=== PATIENT | male | born 1985 | race Caucasian/White ===

== ENCOUNTER 2024-02-19 09:59 | Inpatient (IN) ==
--- NOTE | 2024-02-19 10:58 | Emergency Department Note ---
Impression & Plan Perianal abscess, Perianal fistula due to Crohn's disease ED Provider Note NAME: MARQUISE OWUSU AGE: 38 SEX: M : 1985 ARRIVES VIA: Walk-In INFORMANT: Patient, ED PROVIDER(S): Bradford Townsend MD CHIEF COMPLAINT: Fistula HPI: This is a 38-year-old male presenting for draining perirectal fistula. Patient notes he has Crohn's disease for multiple years. He has had this fistula near his rectum for the past 1+ year. He has not had much issue with it it occasionally drains but generally asymptomatic. With past 1 to 2 days he has noticed significant drainage coming out of this region. He notes he has had fevers up to 103 as of yesterday. He notes he felt ill, had to go home from work, had the fever and this resolved few hours later. This then recurred this morning he notes worsening drainage over the course of the night that is never happened before. ROS: See above HPI for pertinent positives & negatives. A total of 10 systems reviewed and were otherwise negative. PHYSICAL EXAMINATION: General: resting comfortably in no acute distress Head: Normocephalic and atraumatic Eyes: Normal inspection, extraocular muscles intact Ear, nose, throat: Normal external exam Neck: Normal range of motion Respiratory: lungs clear to auscultation bilaterally Cardiovascular: Regular rate/rhythm, no murmur GI: soft, nontender, no guarding or rebound : Small area of 1 cm circular erythema/swelling with open wound to the left perianal space Extremities: nontender, moves all extremities Neuro: The patient awake and alert, appropriately conversive, no focal deficits, symmetric faces Skin: Warm, dry, and intact MEDICAL DECISION MAKING: This is a 38-year-old male presenting for draining perianal fistula/abscess. Will do CT of the ab/pelvis to help elucidate further. Will give broad-spectrum coverage with metronidazole and ceftriaxone. -Blood was reviewed showing no leukocytosis. Otherwise electrolytes are within normal limits. Viral panel negative. -CT imaging does reveal a perianal fistula/abscess the fistula does cross the levator muscle. -Discussed care with on-call surgery, Concepción Lion PA-C, who discussed care with the attending physician, Dr. Demetrius Quintero. Based on the location of the fistula/abscess, would recommend transfer to colorectal specialist. -Discussed with colorectal surgeon at [facility]. Patient care accepted under Dr. Porter Gutierrez. -Currently pending bed. Patient will require antibiotics, fluids and be n.p.o. currently. -Patient signed oncoming physician, Dr. Cline pending transfer. Differential diagnosis: Perirectal fistula, perianal abscess, Mina's gangrene ER treatment provided: See below Diagnostics interpreted by me: ECG: None Cardiac Monitoring: An order was placed for continuous cardiac monitoring. The monitor shows a rate of 67 with sinus rhythm. Laboratory studies: As stated above and show below. Imaging studies: See below. Past Med/Surg History Problem List (Updated 02/20/24 @ 11:24 by Bradford Townsend MD) Perianal fistula due to Crohn's disease (Acute) Perianal abscess (Acute) Social History Smoking Status: Never smoker Second Hand Exposure: No; Do You Dip or Chew Tobacco: No; Tobacco Cessation Education Requested by Patient: No Hx Alcohol Use: Yes Alcohol type: beer and hard liquor Hx Substance Use: No Preferred Language: Occitan Communication Ability: Effective Sort Operations Supervisor Required: No Beliefs That Will Affect Care: None Current Living Situation: Alone Other Information That Helps Us Care for You: No Feels Safe at Home: Yes Safety Concerns: Feels Safe At This Time Assistive Devices: None Allergies Allergies Allergy/AdvReac Type Severity Reaction Status Date / Time atropine [From Lomotil] AdvReac Blurry Verified 02/19/24 19:58 Vision diphenoxylate [From Lomotil] AdvReac Blurry Verified 02/19/24 19:58 Vision Anti- dirrheal pill AdvReac lost Uncoded 02/19/24 12:11 periperal vision Home Meds Home Medications Medication Instructions Recorded Confirmed balsalazide 750 mg capsule 1,500 mg PO BID 02/19/24 02/19/24 emtricitabine 200 mg-tenofovir 1 tab PO DAILY 02/19/24 02/19/24 alafenamide fumarate 25 mg tablet (Descovy) ferrous sulfate 325 mg (65 mg 325 mg PO DAILY 02/19/24 02/19/24 iron) tablet (iron) finasteride 1 mg tablet 1 mg PO DAILY 02/19/24 02/19/24 omeprazole magnesium 20 mg 20 mg PO DAILY 02/19/24 02/19/24 tablet,delayed release (Prilosec OTC) upadacitinib 45 mg tablet,extended 45 mg PO DAILY 02/19/24 02/19/24 release 24 hr (Rinvoq) Results & Data (ED) Vital Signs Vital Signs - 24 hr 02/19/24 12:00 02/19/24 13:00 02/19/24 14:00 Pulse Rate 63 63 67 Pulse Rate [Apical] Pulse Rate from SpO2 Sensor 63 63 68 Respiratory Rate 24 22 18 Respiratory Effort / Characteristics Respiratory Depth Blood Pressure 133/85 143/74 H Blood Pressure [Left Arm] Blood Pressure Mean 101 97 Blood Pressure Mean [Left Arm] Pulse Oximetry 97 96 97 Oxygen Delivery Method Room Air Room Air Room Air 02/19/24 15:30 02/19/24 16:00 02/19/24 17:36 Pulse Rate 67 65 70 Pulse Rate [Apical] Pulse Rate from SpO2 Sensor 66 66 67 Respiratory Rate 20 14 16 Respiratory Effort / Characteristics Respiratory Depth Blood Pressure 131/79 Blood Pressure [Left Arm] Blood Pressure Mean 96 Blood Pressure Mean [Left Arm] Pulse Oximetry 98 97 98 Oxygen Delivery Method Room Air Room Air Room Air 02/19/24 20:00 Pulse Rate Pulse Rate [Apical] 56 L Pulse Rate from SpO2 Sensor Respiratory Rate 16 Respiratory Effort / Characteristics Non-Labored Respiratory Depth Normal Blood Pressure Blood Pressure [Left Arm] 129/80 Blood Pressure Mean Blood Pressure Mean [Left Arm] 96 Pulse Oximetry 95 Oxygen Delivery Method Laboratory Data 02/20/24 07:56 02/20/24 07:56 Lab Results 02/19/24 Range/Units 10:32 WBC 9.04 (4.8-10.8) K/ul RBC 4.53 L (4.70-6.10) M/uL Hgb 14.8 (14.0-18.0) g/dl Hct 41.5 L (42.0-52.0) % MCV 91.6 (80.0-100.0) fL MCH 32.7 (25.0-34.0) pg MCHC 35.7 (32.0-36.0) g/dL RDW Std Deviation 42.9 (36.4-46.3) fL RDW Coeff of Poly 12.9 (11.5-14.5) % Plt Count 239 (130-400) K/uL MPV 9.7 (9.4-12.4) fL Immature Gran % (Auto) 0.4 % Neut % (Auto) 63.1 % Lymph % (Auto) 27.5 % Whitley % (Auto) 8.1 % Eos % (Auto) 0.7 % Baso % (Auto) 0.2 % Neut # (Auto) 5.70 (1.40-6.50) K/uL Lymph # (Auto) 2.49 (1.20-3.40) K/uL Whitley # (Auto) 0.73 H (0.11-0.59) K/uL Eos # (Auto) 0.06 (0.00-0.50) K/uL Baso # (Auto) 0.02 (0.00-0.20) K/uL Immature Gran # (Auto) 0.04 (0.01-0.20) K/uL Sodium 136 (136-145) mmol/L Potassium 3.9 (3.5-5.1) mmol/L Chloride 104 (98-107) mmol/L Carbon Dioxide 25 (21-32) mmol/L Anion Gap 7 (3-11) BUN 18 (6-23) mg/dl Creatinine 1.38 (0.6-1.4) mg/dl Est Cr Clr Drug Dosing 84.8 ml/min Est GFR ( Amer) 75.7 ml/min Est GFR (Non-Af Amer) 65.3 ml/min BUN/Creatinine Ratio 13.0 (10-20) Glucose 94 (70-99(Fasting)) mg/dl Calcium 9.5 (8.6-10.3) mg/dl Adenovirus (PCR) Not Detected (NotDetected) B. pertussis DNA (PCR) Not Detected (NotDetected) B.parapertussis DNA PCR Not Detected (NotDetected) C. pneumoniae DNA (PCR) Not Detected (NotDetected) Coronavirus OC43 (PCR) Not Detected (NotDetected) Coronavirus HKU1 (PCR) Not Detected (NotDetected) Coronavirus 229E (PCR) Not Detected (NotDetected) SARS-CoV-2 (PCR) Not Detected (NotDetected) Coronavirus NL63 (PCR) Not Detected (NotDetected) Human Metapneumovir PCR Not Detected (NotDetected) Influenza Type A (PCR) Not Detected (NotDetected) Influenza Type B (PCR) Not Detected (NotDetected) M. pneumoniae (PCR) Not Detected (NotDetected) Parainfluenza 1 (PCR) Not Detected (NotDetected) Parainfluenza 2 (PCR) Not Detected (NotDetected) Parainfluenza 3 (PCR) Not Detected (NotDetected) Parainfluenza 4 (PCR) Not Detected (NotDetected) RSV (PCR) Not Detected (NotDetected) Entero/Rhino (PCR) Not Detected (NotDetected) Administered Medications Balsalazide (Balsalazide Disodium 750 Mg Cap) 1,500 mg PO BID [facility] Stop: 03/21/24 08:59 Last Admin: 02/20/24 09:59 Dose: 1,500 mg Documented By: ZABRINA Enoxaparin Sodium (Enoxaparin Inj 40 Mg/0.4 Ml Syr) 40 mg SQ QAM [facility] Stop: 03/21/24 08:59 Last Admin: 02/20/24 08:54 Dose: Not Given Documented By: ZABRINA Ferrous Sulfate (Ferrous Sulfate 325 Mg Tab) 325 mg PO DAILY [facility] Stop: 03/21/24 08:59 Last Admin: 02/20/24 10:20 Dose: 325 mg Documented By: ZABRINA Piperacillin Sod/Tazobactam (Sod 4.5 gm/ Dextrose) 100 mls @ 25 mls/hr IV Q8H [facility]; Protocol Stop: 03/01/24 01:59 Last Admin: 02/20/24 10:00 Dose: 25 mls/hr Documented By: Infusion: 02/20/24 05:02 Dose: Infused Documented By: Admin: 02/20/24 01:01 Dose: 25 mls/hr Documented By: JENNYFER Dextrose/Sodium Chloride (D5w And Nss) 1,000 mls @ 60 mls/hr IV .[id number] [facility] Stop: 03/21/24 07:29 Last Admin: 02/20/24 07:30 Dose: 60 mls/hr Documented By: ZABRINA Finasteride 1 Mg Tab 1 each PO Q24H DORINDA Stop: 03/21/24 08:59 Last Admin: 02/20/24 09:58 Dose: 1 mg Documented By: ZABRINA Descovy 200-25mg: Non-Formulary Patient's Own Med 1 each PO DAILY DORINDA Stop: 03/21/24 09:44 Last Admin: 02/20/24 09:57 Dose: 25 mg Documented By: LMM Pantoprazole Sodium (Pantoprazole 40 Mg Tab) 40 mg PO DAILY DORINDA Stop: 03/21/24 08:59 Last Admin: 02/20/24 10:19 Dose: 40 mg Documented By: LMM Discontinued Medications Metronidazole (Flagyl) 500 mg in 100 mls @ 100 mls/hr IV NOW STA; Protocol Stop: 02/19/24 14:37 Last Infusion: 02/19/24 15:40 Dose: Infused Documented By: [facility] Admin: 02/19/24 14:35 Dose: 100 mls/hr Documented By: [facility] Ceftriaxone Sodium (Rocephin) 2,000 mg in 50 mls @ 100 mls/hr IV NOW STA Stop: 02/19/24 14:07 Last Infusion: 02/19/24 15:40 Dose: Infused Documented By: [facility] Admin: 02/19/24 14:35 Dose: 100 mls/hr Documented By: [facility] Sodium Chloride (Nss) 1,000 mls @ 999 mls/hr IV .Q1H1M ONE Stop: 02/19/24 14:50 Last Infusion: 02/19/24 15:40 Dose: Infused Documented By: [facility] Admin: 02/19/24 14:20 Dose: 999 mls/hr Documented By: [facility] Sodium Chloride (Nss) 1,000 mls @ 125 mls/hr IV .Q8H DORINDA Stop: 03/20/24 15:14 Last Infusion: 02/19/24 22:20 Dose: Infused Documented By: Infusion: 02/19/24 19:58 Dose: 125 mls/hr Documented By: Admin: 02/19/24 15:39 Dose: 125 mls/hr Documented By: [facility] Metronidazole (Flagyl) 500 mg in 100 mls @ 100 mls/hr IV Q8H DORINDA Stop: 02/29/24 21:59 Last Admin: 02/19/24 22:51 Dose: Not Given Documented By: [facility] Sodium Chloride (Nss) 1,000 mls @ 100 mls/hr IV .Q10H ONE Stop: 02/20/24 05:41 Last Infusion: 02/20/24 02:25 Dose: Infused Documented By: Admin: 02/19/24 19:59 Dose: 100 mls/hr Documented By: ANDRADE Piperacillin Sod/Tazobactam Sod (Zosyn) 4.5 gm in 100 mls @ 200 mls/hr IV NOW STA Stop: 02/19/24 20:56 Last Infusion: 02/19/24 21:40 Dose: Infused Documented By: Admin: 02/19/24 21:05 Dose: 200 mls/hr Documented By: ANDRADE Ioversol (Optiray 320 100ml) 94 ml IV ONCE ONE Stop: 02/19/24 11:30 Last Admin: 02/19/24 11:30 Dose: 94 ml Documented By: ROGERIO Miscellaneous (Balsalazide - Order Awaiting Action) 1 each N/A QS DORINDA Stop: 03/21/24 00:00 Last Admin: 02/20/24 09:07 Dose: Not Given Documented By: Admin: 02/20/24 00:28 Dose: Not Given Documented By: JENNYFER Miscellaneous (Descovy 200-25 Mg - Order Awaiting Action) 1 each N/A QS DORINDA Stop: 03/21/24 00:00 Last Admin: 02/20/24 09:48 Dose: Not Given Documented By: Admin: 02/20/24 00:28 Dose: Not Given Documented By: JENNYFER Cardenascellaneous (Finasteride 1 Mg - Order Awaiting Action) 1 each N/A QS DORINDA Stop: 03/21/24 00:00 Last Admin: 02/20/24 09:07 Dose: Not Given Documented By: Admin: 02/20/24 00:28 Dose: Not Given Documented By: JENNYFER Miscellaneous Information (Patient's Allergy Info Needs Entered) 1 each N/A Q30M DORINDA Stop: 03/20/24 19:44 Last Admin: 02/19/24 22:22 Dose: Not Given Documented By: Admin: 02/19/24 22:22 Dose: Not Given Documented By: JENNYFER Imaging Data Radiologist's Impression: Abdomen/Pelvis CT 02/19/24 10:42 CT SCAN OF THE ABDOMEN AND PELVIS WITH IV CONTRAST CLINICAL HISTORY: Perirectal fistula. Abscess. COMPARISON STUDY: No priors. TECHNIQUE: Following the IV administration of negative cc of Optiray 320, CT scan of the abdomen and pelvis is performed from the lung bases to the proximal femora. Images are reviewed in the axial, sagittal, and coronal planes. IV contrast was administered without complication. A dose lowering technique was utilized adhering to the principles of ALARA. CT DOSE: 1576.21 mGy.cm FINDINGS: Lung bases: The heart is normal in size and without pericardial effusion. The lung bases are clear. Liver: The contrast-enhanced liver is normal in size, contour, and attenuation. There is no intrahepatic biliary ductal dilatation. The hepatic veins and portal veins are patent. Gallbladder: Unremarkable. Spleen: The spleen is mildly enlarged measuring 14.5 cm in length. Pancreas: Unremarkable. Adrenal glands: Unremarkable. Kidneys: The contrast enhanced kidneys are normal in size and without hydronephrosis. The kidneys enhance symmetrically. Abdominal vasculature: The abdominal aorta is normal in course and caliber. Bowel: There is no bowel obstruction. The appendix is well-visualized and normal. The rectal wall appears mildly thickened with surrounding inflammation. There is a thick walled and peripherally enhancing fluid collection/tract which extends from the anterior left rectum at the 1:00 to 3:00 position into the left perineal soft tissues. This originates on image #305, crosses the left levator musculature, and extends to the dermal surface along the inferior left gluteal crease on image #373. More organized component of this fluid collection is seen on image number dimension 18 and measures 2.5 x 2.1 x 1.0 cm. The tract measures approximately 12 cm in craniocaudal length. Mildly enlarged perirectal lymph nodes measure up to 9 mm. There is mild cellulitis along the left the gluteal crease. Peritoneum: There is no intraperitoneal free air or abdominal ascites. Lymphadenopathy: None. Pelvic viscera: The bladder, prostate, and seminal vesicles are normal as visualized. Skeletal structures: No lytic or blastic lesions are seen. IMPRESSION: 1. There is a left-sided perianal abscess/fistula as detailed above which extends from the anterior aspect of the rectum to the inferior gluteal crease. 2. There is rectal wall thickening with mild perirectal infiltration and mildly enlarged perirectal lymph nodes. 3. The fistulous tract extends through the levator musculature. 4. Mild splenomegaly. 5. Additional findings as above. ACT 112: Negative or not required by law. Electronically signed by: Brandon Castelan M.D. 02/19/2024 12:17 PM Discharge Plan Visit Data Chief Complaint: Referred by Doctor Stated Complaint: REF BY DOC, NEEDS MRI TO ASSESS ABD ED Provider: Marquise Cline Discharge Problem: Perianal abscess, Perianal fistula due to Crohn's disease Patient Disposition: Admitted As Inpatient Discharge Instructions Interventions: ED Discharge Assessment Last Done: 02/19/24 21:41
[2024-02-19 11:05] LABS: Basophils # (auto) 0.02 K/uL (0.00-0.20); Basophils % (auto) 0.2 %; Eosinophils # (auto) 0.06 K/uL (0.00-0.50); Eosinophils % (auto) 0.7 %; Hematocrit (blood only) 41.5 % (42.0-52.0); Hemoglobin 14.8 g/dl (14.0-18.0); Immature Granulocytes # (auto) 0.04 K/uL (0.01-0.20); Immature Granulocytes % (auto) 0.4 %; Lymphocytes # (auto) 2.49 K/uL (1.20-3.40); Lymphocytes % (auto) 27.5 %; Mean Corpuscular Hemoglobin 32.7 pg (25.0-34.0); Mean Corpuscular Hgb Conc 35.7 g/dL (32.0-36.0); Mean Corpuscular Volume 91.6 fL (80.0-100.0); Mean Platelet Volume 9.7 fL (9.4-12.4); Monocytes # (auto) 0.73 K/uL (0.11-0.59); Monocytes % (auto) 8.1 %; Neutrophils % (auto) 63.1 %; Platelet Count 239 K/uL (130-400); RDW Coefficient of Variation 12.9 % (11.5-14.5); RDW Standard Deviation 42.9 fL (36.4-46.3); Red Blood Count 4.53 M/uL (4.70-6.10); White Blood Count 9.04 K/ul (4.8-10.8)
[2024-02-19 11:19] LABS: Calcium 9.5 mg/dl (8.6-10.3); Creatinine Clr Calc Pharmacy 84.8 ml/min; Est GFR (African American) 75.7 ml/min; Est GFR (Non-African American) 65.3 ml/min; Potassium 3.9 mmol/L (3.5-5.1)
[2024-02-19] MEDS: OPTIRAY 320 100ml IV ONE (11:30)
[2024-02-19 12:04] LABS: Adenovirus PCR Not Detected (NotDetected); Bordetella parapertussis PCR Not Detected (NotDetected); Bordetella pertussis PCR Not Detected (NotDetected); Chlamydia pneumoniae PCR Not Detected (NotDetected); Coronavirus 229E PCR Not Detected (NotDetected); Coronavirus CoV-2 (COVID19)PCR Not Detected (NotDetected); Coronavirus HKU1 PCR Not Detected (NotDetected); Coronavirus NL63 PCR Not Detected (NotDetected); Coronavirus OC43PCR Not Detected (NotDetected); Human Metapneumovirus PCR Not Detected (NotDetected); Influenza A PCR Not Detected (NotDetected); Influenza B PCR Not Detected (NotDetected); Mycoplasma pneumoniae PCR Not Detected (NotDetected); Parainfluenza Virus 1 PCR Not Detected (NotDetected); Parainfluenza Virus 2 PCR Not Detected (NotDetected); Parainfluenza Virus 3 PCR Not Detected (NotDetected); Parainfluenza Virus 4 PCR Not Detected (NotDetected); Respiratory Syncytial VirusPCR Not Detected (NotDetected); Rhinovirus/Enterovirus PCR Not Detected (NotDetected)
--- NOTE | 2024-02-19 12:20 | CT Scan Report ---
CT SCAN OF THE ABDOMEN AND PELVIS WITH IV CONTRAST CLINICAL HISTORY: Perirectal fistula. Abscess. COMPARISON STUDY: No priors. TECHNIQUE: Following the IV administration of negative cc of Optiray 320, CT scan of the abdomen and pelvis is performed from the lung bases to the proximal femora. Images are reviewed in the axial, sa gittal, and coronal planes. IV contrast was administered without complication. A dose lowering techni que was utilized adhering to the principles of ALARA. CT DOSE: 1576.21 mGy.cm FINDINGS: Lung bases: The heart is normal in size and without pericardial effusion. The lung bases are clear. Liver: The contrast-enhanced liver is normal in size, contour, and attenuation. There is no intrahepa tic biliary ductal dilatation. The hepatic veins and portal veins are patent. Gallbladder: Unremarkable. Spleen: The spleen is mildly enlarged measuring 14.5 cm in length. Pancreas: Unremarkable. Adrenal glands: Unremarkable. Kidneys: The contrast enhanced kidneys are normal in size and without hydronephrosis. The kidneys enh ance symmetrically. Abdominal vasculature: The abdominal aorta is normal in course and caliber. Bowel: There is no bowel obstruction. The appendix is well-visualized and normal. The rectal wall ap pears mildly thickened with surrounding inflammation. There is a thick walled and peripherally enhanc ing fluid collection/tract which extends from the anterior left rectum at the 1:00 to 3:00 position i nto the left perineal soft tissues. This originates on image #305, crosses the left levator musculatu re, and extends to the dermal surface along the inferior left gluteal crease on image #373. More orga nized component of this fluid collection is seen on image number dimension 18 and measures 2.5 x 2.1 x 1.0 cm. The tract measures approximately 12 cm in craniocaudal length. Mildly enlarged perirectal l ymph nodes measure up to 9 mm. There is mild cellulitis along the left the gluteal crease. Peritoneum: There is no intraperitoneal free air or abdominal ascites. Lymphadenopathy: None. Pelvic viscera: The bladder, prostate, and seminal vesicles are normal as visualized. Skeletal structures: No lytic or blastic lesions are seen. IMPRESSION: 1. There is a left-sided perianal abscess/fistula as detailed above which extends from the anterior a spect of the rectum to the inferior gluteal crease. 2. There is rectal wall thickening with mild perirectal infiltration and mildly enlarged perirectal l ymph nodes. 3. The fistulous tract extends through the levator musculature. 4. Mild splenomegaly. 5. Additional findings as above. ACT 112: Negative or not required by law. Electronically signed by: Brandon Castelan M.D. 02/19/2024 12:17 PM
[2024-02-19] MEDS: SODIUM CHLORIDE 0.9% 1,000 ML IV ONE ×2 (14:20→19:59)
[2024-02-19] MEDS: cefTRIAXone SODIUM 2,000 MG/50 ML BAG IV STA (14:35)
[2024-02-19] MEDS: metroNIDAZOLE 500 MG/100 ML BAG IV STA (14:35)
[2024-02-19] MEDS: SODIUM CHLORIDE 0.9% 1,000 ML IV SCH (15:39)
--- OUTSIDE RECORDS SUMMARY | 2024-02-19 16:52 | External Medical Summary ---
Author Name Unknown Address Unknown Organization [id number]:[facility] - [address] [place] [address] Laboratory Report Ordering Provider Test Date Status TRAE KNOX 02/18/2024 08:21:40 Final Observation Date Value Abnormality Reference (Units ) Status Triglyceride 02/18/2024 08:21:40 76 <=174 ( mg/dL) Final Triglyceride Reference Range s (mg/dL):
<150 Acceptable
150-174 Borderline high
175-499 High
>=500 Very high Cholesterol 02/18/2024 08:21:40 142 <200 (mg /dL) Final Total Cholesterol Reference Ranges (mg/dL):
<200 Desirable
200-239 Borderline high
>=240 High HDL 02/18/2024 08:21:40 44 >39 (mg/dL ) Final HDL Cholesterol Reference Ra nges (mg/dL):
>=60 High (Desirable)
<50 Low (Undesirable) For Females
<40 Low (Undesirable) For Males NON-HDL CHOLESTEROL 02/18/2024 08:21:40 98 <=159 (mg/dL) Final Non-HDL Cholesterol Referenc e Range (mg/dL):
<100 Target level for high risk ASCVD patient
<130 Optimal for general population
130-159 Near optimal for general population
160-189 Borderline High
190-219 High
>=220 Very High LDL, (calculated) 02/18/2024 08:21:40 83 <= 129 (mg/dL) Final LDL Cholesterol Reference Ra nges (mg/dL):
<70 Target level for high risk ASCVD patient
<100 Optimal for general population
100-129 Near optimal for general population
130-159 Borderline high
160-189 High
>=190 Very high Performing Location LAB[facility]ATORY [facility] - [address] [place] [address]
--- OUTSIDE RECORDS SUMMARY | 2024-02-19 16:52 | External Medical Summary ---
Author Name Unknown Address Unknown Organization [id number]:[facility] - [address] [place] [id number] Laboratory Report Ordering Provider Test Date Status TRAE KNOX 02/18/2024 08:21:40 Final Observation Date Value Abnormality Reference (Units ) Status WBC, Total 02/18/2024 08:21:40 8.95 4.00-10.8 0 (K/uL) Final RBC 02/18/2024 08:21:40 4.41 4.50-5.25 (M/uL) Final Hemoglobin 02/18/2024 08:21:40 14.3 14.0-16.8 (g/dL) Final HCT 02/18/2024 08:21:40 41.4 40.0-48.4 (%) Final MCV 02/18/2024 08:21:40 93.9 82.0-99.5 (fL) Final MCH 02/18/2024 08:21:40 32.4 27.0-34.0 (pg) Final MCHC 02/18/2024 08:21:40 34.5 32.0-36.0 (g/dL) Final RDW 02/18/2024 08:21:40 13.1 11.5-15.5 (%) Final Platelets 02/18/2024 08:21:40 226 140-400 (K /uL) Final MPV 02/18/2024 08:21:40 9.8 6.6-11.1 ( fL) Final Performing Location [facility] [place] [address]
--- OUTSIDE RECORDS SUMMARY | 2024-02-19 16:52 | External Medical Summary ---
Author Name Unknown Address Unknown Organization [id number] [address] [place] [address] Laboratory Report Ordering Provider Test Date Status TRAE KNOX 02/18/2024 08:21:40 Final Observation Date Value Abnormality Reference (Units ) Status SYNC LEUKOCYTES IN BLOOD BY AUTOMATED COUNT 02/18/2024 08:21:40 8.95 4.00-10.80 (K/uL) Final Neutrophils/100 leukocytes in Blood by Manual count 02/18/2024 08:21:40 69.0 40.0-75.0 (%) Final Lymphocytes/100 leukocytes in Blood by Manual count 02/18/2024 08:21:40 24.0 18.0-42.0 (%) Final Monocytes/100 leukocytes in Blood by Manual count 02/18/2024 08:21:40 7.0 1.0-11.0 (%) Final Neutrophils [#/volume] in Blood by Manual count 02/18/2024 08:21:40 6.18 1.80-7.70 (K/uL) Final Lymphocytes [#/volume] in Blood by Manual count 02/18/2024 08:21:40 2.15 1.00-4.80 (K/uL) Final Monocytes [#/volume] in Blood by Manual count 02/18/2024 08:21:40 0.63 0.00-1.10 (K/uL) Final Nucleated erythrocytes/100 leukocytes [Ratio] in Blood by Automated count 02/18/2024 08:21:40 Final Variant lymphocytes [Presence] in Blood by Light microscopy 02/18/2024 08:21:40 Present Abnormal None Seen Final Performing Location [facility] [address] - [address] [place] [id number]
--- OUTSIDE RECORDS SUMMARY | 2024-02-19 16:52 | External Medical Summary ---
Author Name Unknown Address Unknown Organization K0G:[facility] [address] - [address] [place] [address] Laboratory Report Ordering Provider Test Date Status TRAE KNOX 02/18/2024 08:21:40 Final Observation Date Value Abnormality Reference (Units ) Status BUN 02/18/2024 08:21:40 21 Above high normal 6-20 (mg/dL) Final Creatinine 02/18/2024 08:21:40 1.5 Above high normal 0.6-1.2 (mg/dL) Final Glomerular filtration rate/1.73 sq M.predicted [Volume Rate/Area] in Serum, Plasma or Blood by Creatinine-based formula (CKD-EPI) 02/18/2024 08:21:40 61 >=60 (mL/min) Final eGFR is calculated based on the CKD-EPI 2020 equation Sodium 02/18/2024 08:21:40 137 135-146 (m mol/L) Final Potassium 02/18/2024 08:21:40 4.3 3.5-5.1 (m mol/L) Final Cl 02/18/2024 08:21:40 102 98-107 (mm ol/L) Final CO2 02/18/2024 08:21:40 26 22-32 (mmo l/L) Final Anion gap 02/18/2024 08:21:40 9 7-15 (mmol /L) Final Glucose 02/18/2024 08:21:40 97 70-120 (mg /dL) Final Albumin 02/18/2024 08:21:40 4.5 3.8-5.0 (g /dL) Final AST (Aspartate aminotransferase) 02/18/2024 08:21:40 29 10-50 (U/L) Final Alk Phos 02/18/2024 08:21:40 78 35-130 (U/ L) Final Bilirubin, Total 02/18/2024 08:21:40 0.8 <=1 .2 (mg/dL) Final Calcium 02/18/2024 08:21:40 10.0 8.4-10.2 ( mg/dL) Final Protein 02/18/2024 08:21:40 6.8 6.0-8.3 (g /dL) Final ALT (Alanine aminotransferase) 02/18/2024 08:21:40 20 10-50 (U/L) Final Performing Location [facility] [address] [facility] [address]
--- OUTSIDE RECORDS SUMMARY | 2024-02-19 16:52 | External Medical Summary | Summary of Care ---
Author Name Unknown Organization [facility] Address [address] [place] [address] Phone [phone] Care Team Providers Care Tipping Machine Operator Name Role Phone Garo Aponte MD Primary Care Provider Reason for Visit * Reason Comments Outpatient Testing Encounter Details Date Type Department Care Team (Latest Contact Info) Description 02/18/2024 8:20 AM EDT Laboratory Laboratory, [facility] [address] [place] [address] [facility] [address] [place] [address] Crohn's disease with fistula, unspecified gastrointestinal tract location (HCC); [facility] current use of upadacitinib Allergies Active Allergy Reactions Criticality Noted Date Comments Diphenoxylate-Atropi ne 05/23/2023 Other Reaction(s): Not available Lomotil Other (Please comment) High 09/29/2009 Lose of sight documented as of this encounter (statuses as of 02/18/2024) Medications Medication Sig Dispensed Refills Start Date End Date Status fluticasone (FLONASE) 50 MCG/ACT nasal sprayIndications:Mike rgic rhinitis USE TWO SPRAYS IN EACH NOSTRIL DAILY 16 g 4 8 Active Ferrous Sulfate (IRON) 325 (65 Fe) MG TABS Take 1 Tablet by mouth in the morning. Active Hydrocortisone 0.5 % cream Apply topically to affected area 2 times a day. Apply one time a day as needed for rash Active omeprazole (PRILOSEC) 40 MG CPDRIndications:GERD (gastroesophageal reflux disease) TAKE ONE CAPSULE BY MOUTH DAILY 90 Cap 1 0 Active ProAir HFA 108 (90 Base) MCG/ACT Inhalation Aerosol Solution Inhale by mouth 2 Puffs 4 times a day . 18 g 1 2 Active Additional Information Patient not taking.Reported on 04/16/2023 Hydrocortisone Acetate 25 MG Rectal Suppository (Anusol-HC) Administer into the rectum 2 times a day in the morning and at bedtime as needed for Hemorrhoids. Up to 2 weeks. 24 Suppository 1 2 Active Descovy 200-25 MG Oral Tablet Take 1 Tablet by mouth in the morning. 3 Active Balsalazide Disodium 750 MG Oral Capsule TAKE 2 CAPSULES BY MOUTH TWICE DAILY 360 Capsule 3 3 Active Atenolol 25 MG Oral Tablet (Tenormin)Indications :Performance anxiety Take 1 Tablet by mouth daily as needed (performance anxiety). 30 Tablet 2 3 Active Finasteride 1 MG Oral TabletIndications:Mal e pattern baldness Take 1 Tablet by mouth in the morning. 90 Tablet 3 4 Active Rinvoq 45 MG Oral Tablet Extended Release 24 Hour (Upadacitinib ER)Indications:Crohn' s disease with fistula, unspecified gastrointestinal tract location (HCC) Take 1 Tablet by mouth daily. 28 Tablet 2 4 Active documented as of this encounter (statuses as of 02/18/2024) Active Problems Problem Noted Date Diagnosed Date PSC (primary sclerosing cholangitis) 10/07/2023 Crohn's disease with fistula 08/04/2023 Ulcerative (chronic) pancolitis with other compl ication 10/11/2021 Performance anxiety 08/02/2014 GERD (gastroesophageal reflux disease) 3 Ulcerative colitis 07/11/2009 ADVANCE DIRECTIVE INFORMATION 11/18/2006 Overview: No, Advance Directive brochure given to patient. documented as of this encounter (statuses as of 02/18/2024) Resolved Problems Problem Noted Date Diagnosed Date Resolved Date Ulcerative colitis 07/28/2015 5 documented as of this encounter (statuses as of 02/18/2024) Immunizations Name Administration Dates Next Due COVID-19 mRNA, LNP-s, No Pre serve, 2-Dose Series (Pfizer) 07/11/2021,2020,11/01/2020 H1N1 2009 Influenza, IM 06/28/2009,06/27/2009 PPD 09/14/2015,09/29/2009 Pneumococcal Conjugate Vacci ne, 20-valent ([id number]) 08/04/2023 Seasonal Influenza, PF, 6 M & above, IM , (FluLaval or Fluzone) 06/11/2023,06/21/2021,08/12/2018 Seasonal Influenza, Quadriva lent, No Preserve, IM 07/11/2016,07/28/2015 Seasonal Influenza, Split, I IV3, With Preserve, Inj 08/02/2014 TD - Tetanus/Diptheria (ADULT) 10/11/2021 TDAP, Age 7 and older, IM (Adacel) 07/03/2010 documented as of this encounter Social History Tobacco Use Types Packs/Day Years Used Date Smoking Tobacco: Never Smokeless Tobacco: Never Alcohol Use Standard Drinks/Week Comments Yes 0 (1 standard drink = 0.6 oz pur e alcohol) socially PHQ-2 Answer Date Recorded PHQ Adult Total Score 0 12/27/2022 Hunger Vital Sign Answer Date Recorded Within the past 12 months, y ou worried that your food would run out before you got the money to buy more. Never true 08/04/20 23 Within the past 12 months, t he food you bought just didn't last and you didn't have money to get more. Never true 08/04/2023 Childcare Answer Date Recorded Do you feel overwhelmed with taking care of a child, family member or friend? No 08/04/2023 Does your family need help f inding childcare? (Household - for ages 0-17 years) Not on file 08/04/2023 Clothing Answer Date Recorded Have you been unable to get clothing when it was really needed? No 08/04/2023 Is your family able to get c lothes or diapers when needed? (Household - for ages 0-17 years) Not on file 08/04/2023 Personal Safety Answer Date Recorded Do you feel unsafe or have concerns for your saf ety? No 08/04/2023 Do you have concerns for you r family's safety? (Household - for ages 0-17 years) Not on file 08/04/2023 Utilities Answer Date Recorded Do you have trouble paying y our heating, water, or electric bill? No 08/04/2023 Is your family able to pay t he heat, water, or electric bill? (Household - for ages 0-17 years) Not on file 08/04/2023 Does your family have access to good internet? (Household - for ages 0-17 years) Not on file 08/04/2023 Employment Status Answer Date Recorded Are you unemployed or without regular income? No 08/04/2023 Does the household have a re gular source of income? (Household - for ages 0-17 years) Not on file 08/04/2023 Social Connections Answer Date Recorded How often do you feel lonely or isolated from th ose around you? Never 08/04/2023 Financial Resource Strain Answer Date R ecorded Do you have any trouble payi ng for your medications, or do you think you might in the future? No 08/04/2023 Does your family have troubl e paying for medicine? (Household - for ages 0-17 years) Not on file 08/04/2023 Transportation Needs Answer Date Record ed READ ONLY Do you have troubl e getting a ride to medical visits or work? Never True 08/04/2023 Does your family have a hard time getting a ride to doctors visits? (Household - for ages 0-17 years) Not on file 08/04/2023 Has lack of transportation k ept you from medical appointments, meetings, work, or from getting things needed for daily living? Check all that apply. (Adult - for ages 18 years and over) Not on file 08/04/2023 Do you (or your family) have trouble finding or paying for a ride (transportation)? (Household - for ages 0-17 years) Not on file 08/04/2023 Housing Stability Answer Date Recorded Do you currently live in a s helter or have no steady place to sleep at night? No 08/04/2023 READ ONLY Do you think you a re at risk of becoming homeless? No 08/04/2023 Does your family worry about paying for your home or becoming homeless? (Household - for ages 0-17 years) Not on file 1 10/05/2022 Are you homeless or worried that you might be in the future? (Adult - for ages 18 years and over) Not on file Are you (or your family) matty eless or worried that you might be in the future? (Household - for ages 0-17 years) Not on file Food Insecurity Answer Date Recorded Do you need food for this week? No 08/04/2023 Are you able to get enough f ood for your family? (Household - for ages 0-17 years) Not on file 08/04/2023 Does your family need food t his week? (Household - for ages 0-17 years) Not on file 08/04/2023 Do you always have enough fo od for your family? (Household - for ages 0-17 years) Not on file 08/04/2023 Sex and Gender Information Value Date Recorded Sex Assigned at Not on file Gender Identity Male 08/04/2023 12:30 PM EST Sexual Orientation Not on file Job Start Date Occupation Industry Not on file Not on file Not on file documented as of this encounter Plan of Treatment Upcoming Encounters Date Type Department Care Team (Late st Contact Info) Description 06/01/2024 9:40 AM EDT Office Visit Gastroenterology, [facility] [address] [address] Gucci Scott MD [address] [address] Pending Results Name Type Priority Associated Diagnoses Date /Time CBC WITH WBC DIFFERENTIAL Lab Routine Crohn's disease with fistula, unspecified gastrointestinal tract location (HCC) [facility] current use of upadacitinib 02/18/2024 8:21 AM EDT COMPREHENSIVE METABOLIC PANEL Lab Routine Crohn's disease with fistula, unspecified gastrointestinal tract location (HCC) terminal clerk current use of upadacitinib 02/18/2024 8:21 AM EDT LIPID PANEL WITH DIRECT LDL IF TG IS HIGH Lab Routine Crohn's disease with fistula, unspecified gastrointestinal tract location (HCC) [facility] current use of upadacitinib 02/18/2024 8:21 AM EDT CBC Lab Routine Crohn's disease with fistula, unspecified gastrointestinal tract location (HCC) terminal clerk current use of upadacitinib 02/18/2024 8:21 AM EDT DIFFERENTIAL, AUTOMATED Lab Routine Crohn's disease with fistula, unspecified gastrointestinal tract location (HCC) [facility] current use of upadacitinib 02/18/2024 8:21 AM EDT Scheduled Procedures Name Priority Associated Diagnoses Date/Ti me COLONOSCOPY FLEXIBLE PROXIMA L DIAGNOSTIC Recall Ulcerative pancolitis with other complication (HCC) Health Maintenance Due Date Last Done Comments COVID-19 Vaccine (2022-24 season) 2023 07/11/2021, 2020, 11/01/2020 Depression Screening 12/28/2023 12/27/2022 Diabetes Screening 11/25/2026 11/26/2023, 0 10/11/2021, 11/01/2020, Additional history exists DTaP,Tdap,and Td Vaccines (8 - Td or Tdap) 10/11/2031 10/11/2021, 07/03/2010, 04/12/2002, Additional history exists Influenza Vaccine (FLU shot) Completed 07/2023, 06/21/2021, 08/12/2018, Additional history exists Pneumococcal Vaccine: Pediatrics (0 to 5 Years) and At-Risk Patients (6 to 64 Years) Completed 08/04/2023 GARDASIL-HPV IMMUNIZATION SERIES Aged Out No longer eligible based on patient's age to complete this topic MENINGOCOCCAL (MENACTRA/MENVEO) Aged Out No longer eligible based on patient's age to complete this topic documented as of this encounter Medical Devices Not on filedocumented as of this encounter Visit Diagnoses Diagnosis Crohn's disease with fistula, unspecified gastrointestinal tract location (HCC) [facility] current use of upadacitinib documented in this encounter Care Teams Tipping Machine Operator Relationship Specialty Start Date End Date December, Garo Vuong MD [address] [place] [address] PCP - General Family Medicine 08/04/23 documented as of this encounter
--- OUTSIDE RECORDS SUMMARY | 2024-02-19 16:53 | External Medical Summary | Summary of Care ---
Author Name Unknown Organization [facility] Address [address] [place] [address] Phone [phone] Care Team Providers Care Supervisor Refining Name Role Phone Garo Aponte MD Primary Care Provider [phone] Encounter Details Date Type Department Care Team (Late st Contact Info) Description 02/09/2024 Telephone Gastroenterology, [place] [address] [place], [place] [id number] Gucci Scott MD [address] [place] [address] Allergies Active Allergy Reactions Criticality Noted Date Comments Diphenoxylate-Atropi ne 05/23/2023 Other Reaction(s): Not available Lomotil Other (Please comment) High 09/29/2009 Lose of sight documented as of this encounter (statuses as of 02/09/2024) Medications Medication Sig Dispensed Refills Start Date [...] as of this encounter (statuses as of 02/09/2024) Active Problems Problem Noted Date Diagnosed Date PSC (primary sclerosing cholangitis) 10/07/2023 Crohn's disease with fistula 08/04/2023 Ulcerative (chronic) pancolitis with other compl ication 10/11/2021 Performance anxiety 08/02/2014 GERD (gastroesophageal reflux disease) 3 Ulcerative colitis 07/11/2009 ADVANCE DIRECTIVE INFORMATION 11/18/2006 Overview: No, Advance Directive brochure given to patient. documented as of this encounter (statuses as of 02/09/2024) Resolved Problems Problem Noted Date Diagnosed Date Resolved Date Ulcerative colitis 07/28/2015 5 documented as of this encounter (statuses as of 02/09/2024) Immunizations Name Administration Dates Next Due COVID-19 mRNA, LNP-s, No Pre serve, 2-Dose Series (Semanticator) 07/11/2021,2020,11/01/2020 H1N1 2009 Influenza, IM 06/28/2009,06/27/2009 PPD 09/14/2015,09/29/2009 Pneumococcal Conjugate Vacci ne, 20-valent ([id number]) 08/04/2023 Seasonal Influenza, PF, 6 M & [...] money to get more. Never true 08/04/2023 Sex and Gender Information Value Date Recorded Sex Assigned at Not on file Gender Identity Male 08/04/2023 12:30 PM EST Sexual Orientation Not on file Job Start Date Occupation Industry Not on file Not on file Not on file documented as of this encounter Miscellaneous Notes * Telephone Encounter - Trudy Dubon, PHARM Student - 02/09/2024 10:41 AM EDT Gastro Pre-Cert Request Specialty Medication: Yes. Medication/Disease State Information: Medication: Upadacitinib (Rinvoq) Maintenance: 30mg daily Diagnosis (including ICD-10): Crohn's disease K50.90. Specialty medication - route to [id number]. Referral to pharmacist for: co-management. Office Information: Prescriber: Dr. Scott Patient has completed 12 weeks induction. Patient reports no difference in symptoms on 45mg induction dosing. Patient reports no improvable difference in fistula. For these reasons we will go with the higher 30mg maintenance dose. Last office visit: 11/26/23 documented in this encounter Plan of Treatment Upcoming Encounters Date Type Department Care Team (Late st Contact Info) Description 06/01/2024 9:40 AM EDT Office Visit Gastroenterology, [facility] [address] [place] [address] Gucci Scott MD [address] [place] [address] Scheduled Procedures Name Priority Associated Diagnoses Date/Ti me COLONOSCOPY FLEXIBLE PROXIMA L DIAGNOSTIC Recall Ulcerative pancolitis with other complication (HCC) Health Maintenance Due Date Last Done Comments COVID-19 Vaccine ( season) 2023 07/11/2021, 2020, 11/01/2020 Depression Screening [...] Not on filedocumented as of this encounter Care Teams Supervisor Refining Relationship Specialty Start Date End Date December, Garo Vuong MD [address] [place] [address] PCP - General Family Medicine 08/04/23 documented as of this encounter
--- OUTSIDE RECORDS SUMMARY | 2024-02-19 16:53 | External Medical Summary | Summary of Care ---
Author Name Unknown Organization [facility] Address [address] [place] [address] Phone [phone] Care Team Providers Care Nutrition Intern Name Role Phone Garo Aponte MD Primary Care Provider [phone] Reason for Visit * Reason Onset Date Comments Precert Approved 02/09/2024 Rinvoq Encounter Details Date Type Department Care Team (Late st Contact Info) Description 02/09/2024 Telephone Gastroenterology, [place] [address] [place], [place] [phone] Gucci Scott MD [address] [place] [address] Precert Approved (Rinvoq) Allergies Active Allergy Reactions Criticality Noted Date Comments Diphenoxylate-Atropi ne 05/23/2023 Other Reaction(s): Not available Lomotil Other (Please comment) High 09/29/2009 Lose of sight documented as of this encounter (statuses as of 02/17/2024) Medications Medication Sig Dispensed Refills Start Date [...] as of this encounter (statuses as of 02/17/2024) Active Problems Problem Noted Date Diagnosed Date PSC (primary sclerosing cholangitis) 10/07/2023 Crohn's disease with fistula 08/04/2023 Ulcerative (chronic) pancolitis with other compl ication 10/11/2021 Performance anxiety 08/02/2014 GERD (gastroesophageal reflux disease) 3 Ulcerative colitis 07/11/2009 ADVANCE DIRECTIVE INFORMATION 11/18/2006 Overview: No, Advance Directive brochure given to patient. documented as of this encounter (statuses as of 02/17/2024) Resolved Problems Problem Noted Date Diagnosed Date Resolved Date Ulcerative colitis 07/28/2015 5 documented as of this encounter (statuses as of 02/17/2024) Immunizations Name Administration Dates Next Due COVID-19 mRNA, LNP-s, No Pre serve, 2-Dose Series (Pfizer) 07/11/2021,2020,11/01/2020 DTP Vaccine 10/09/1992, 0,01/23/1989,1987,03/12/1988 H1N1 2009 Influenza, IM 06/28/2009,06/27/2009 Haemophilius B (HIB), unspecified 05/13/1990 Hepatitis B Vaccine 05/20/2000,02/07/1999,1995 MMR - Measles/Mumps/Rubella Vaccine 10/09/1992,0 04/16/1989 OPV - Polio Virus Vaccine (Oral) 993,05/13/1990,05/23/1988,1987 PPD 09/14/2015,09/29/2009 Pneumococcal Conjugate Vacci ne, 20-valent ([id number]) 08/04/2023 Seasonal Influenza, PF, 6 M & above, IM , (FluLaval or Fluzone) 06/11/2023,06/21/2021,08/12/2018 Seasonal Influenza, Quadriva lent, No Preserve, IM 07/11/2016,07/28/2015 Seasonal Influenza, Split, I IV3, With Preserve, Inj 08/02/2014 TD - Tetanus/Diptheria (ADULT) 10/11/2021,2001 TDAP, Age 7 and older, IM (Adacel) [...] encounter Miscellaneous Notes * Telephone Encounter - Carmelo Blake RPh - 02/17/2024 10:24 AM EDT Spoke with patient. He will go for labs tomorrow * Telephone Encounter - Carmelo Blake RPh - 02/17/2024 10:11 AM EDT Auth is approved. Patient has not obtained labs yet. Attempted to contact patient to discuss. No answer, left message to return call to clinic at earliest convenience. Carmelo Blake RPh * Telephone Encounter - Trudy Dubon PHARM Student - 02/09/2024 10:41 AM EDT Gastro Pre-Cert Request Specialty Medication: Yes. Medication/Disease State Information: Medication: Upadacitinib (Rinvoq) Maintenance: 30mg daily Diagnosis (including ICD-10): Crohn's disease K50.90. Specialty medication - route to [id number]. Referral to pharmacist for: co-management. Office Information: [...] 06/01/2024 9:40 AM EDT Office Visit Gastroenterology, [facility] [address] [address] Gucci Scott MD [address] [address] Scheduled Procedures Name Priority Associated Diagnoses Date/Ti [...] filedocumented as of this encounter Care Teams Nutrition Intern Relationship Specialty Start Date End Date December, Garo Vuong MD [address] [place] [address] PCP - General Family Medicine 08/04/23 documented as of this encounter
--- OUTSIDE RECORDS SUMMARY | 2024-02-19 16:53 | External Medical Summary | Summary of Care ---
Author Name Unknown Organization [facility] Address [address] [place] [address] Phone [phone] Care Team Providers Care Cloth Laminating Supervisor Name Role Phone Garo Aponte MD Primary Care Provider [phone] Encounter Details Date Type Department Care Team (Late st Contact Info) Description 02/09/2024 Telephone Gastroenterology, [place] [address] [place], [place] [phone] Gucci Scott MD [address] [place] [address] Allergies Active Allergy Reactions Criticality Noted Date [...] mRNA, LNP-s, No Pre serve, 2-Dose Series (Dhir Diamonds) 07/11/2021,2020,11/01/2020 DTP Vaccine 10/09/1992, 0,01/23/1989,1987,03/12/1988 H1N1 2009 Influenza, IM 06/28/2009,06/27/2009 Haemophilius B (HIB), unspecified 05/13/1990 Hepatitis B Vaccine 05/20/2000,02/07/1999,1995 MMR - Measles/Mumps/Rubella Vaccine 10/09/1992,0 04/16/1989 OPV - Polio Virus Vaccine (Oral) 993,05/13/1990,05/23/1988,1987 PPD 09/14/2015,09/29/2009 Pneumococcal Conjugate Vacci ne, 20-valent ([id number]) 08/04/2023 Seasonal Influenza, PF, 6 M & [...] disease K50.90. Specialty medication - route to [id number]. Referral to pharmacist for: co-management. Office Information: [...] 06/01/2024 9:40 AM EDT Office Visit Gastroenterology, [facility] [address] [place] [address] Gucci Scott MD [address] [place] [address] Scheduled Procedures Name Priority Associated Diagnoses Date/Ti [...] filedocumented as of this encounter Care Teams Cloth Laminating Supervisor Relationship Specialty Start Date End Date December, Garo Vuong MD [address] [place] [address] PCP - General Family Medicine 08/04/23 documented as of this encounter
--- OUTSIDE RECORDS SUMMARY | 2024-02-19 16:53 | External Medical Summary | Summary of Care ---
Author Name Unknown Organization [facility] Address [address] [place] [address] Phone [phone] Care Team Providers Care Cell Room Operator Name Role Phone Garo Aponte MD Primary Care Provider [phone] Reason for Visit * Reason Onset Date Comments Precert In Process 02/09/2024 11 Brenda MICHAUD Rinvoq Encounter Details Date Type Department Care Team (Late st Contact Info) Description [facility] [address] [place], [place] [phone] Gucci Scott MD [address] [place] [address] Precert In Process (11 Brenda MICHAUD Rinvoq) Allergies Active Allergy Reactions Criticality Noted Date Comments Diphenoxylate-Atropi ne 05/23/2023 Other Reaction(s): Not available Lomotil Other (Please comment) High 09/29/2009 Lose of sight documented as of this encounter (statuses as of 02/10/2024) Medications Medication Sig Dispensed Refills Start Date [...] as of this encounter (statuses as of 02/10/2024) Active Problems Problem Noted Date Diagnosed Date PSC (primary sclerosing cholangitis) 10/07/2023 Crohn's disease with fistula 08/04/2023 Ulcerative (chronic) pancolitis with other compl ication 10/11/2021 Performance anxiety 08/02/2014 GERD (gastroesophageal reflux disease) 3 Ulcerative colitis 07/11/2009 ADVANCE DIRECTIVE INFORMATION 11/18/2006 Overview: No, Advance Directive brochure given to patient. documented as of this encounter (statuses as of 02/10/2024) Resolved Problems Problem Noted Date Diagnosed Date Resolved Date Ulcerative colitis 07/28/2015 5 documented as of this encounter (statuses as of 02/10/2024) Immunizations Name Administration Dates Next Due COVID-19 mRNA, LNP-s, No Pre serve, 2-Dose Series (Pfizer) 07/11/2021,2020,11/01/2020 DTP Vaccine 10/09/1992, 0,01/23/1989,1987,03/12/1988 H1N1 2009 Influenza, IM 06/28/2009,06/27/2009 Haemophilius B (HIB), unspecified 05/13/1990 Hepatitis B Vaccine 05/20/2000,02/07/1999,1995 MMR - Measles/Mumps/Rubella Vaccine 10/09/1992,0 04/16/1989 OPV - Polio Virus Vaccine (Oral) 993,05/13/1990,05/23/1988,1987 PPD 09/14/2015,09/29/2009 Pneumococcal Conjugate Vacci ne, 20-valent ([id number]) 08/04/2023 Seasonal Influenza, PF, 6 M & [...] disease K50.90. Specialty medication - route to [id number]. Referral to pharmacist for: co-management. Office Information: [...] 06/01/2024 9:40 AM EDT Office Visit Gastroenterology, [facility] [address] [address] Gucci Scott MD [address] [address] Scheduled Procedures Name Priority Associated Diagnoses Date/Ti [...] filedocumented as of this encounter Care Teams Cell Room Operator Relationship Specialty Start Date End Date December, Garo Vuong MD [address] [place] [address] PCP - General Family Medicine 08/04/23 documented as of this encounter
--- OUTSIDE RECORDS SUMMARY | 2024-02-19 16:53 | External Medical Summary | Summary of Care ---
Author Name Unknown Organization [facility] Address [address] [place] [address] Phone [phone] Care Team Providers Care Him Specialists Name Role Phone Garo Aponte MD Primary Care Provider [phone] Reason for Visit * Reason Onset Date Comments Precert Approved 02/09/2024 Rinvoq Encounter Details Date Type Department Care Team (Late st Contact Info) Description 02/09/2024 Telephone Gastroenterology, [place] [address] [place], [place] [phone] Gucci Scott MD [address] [place] [address] Precert Approved (Rinvoq) Allergies Active Allergy Reactions [...] PPD 09/14/2015,09/29/2009 Pneumococcal Conjugate Vacci ne, 20-valent ([id number]) 08/04/2023 Seasonal Influenza, PF, 6 M & [...] disease K50.90. Specialty medication - route to [id number]. Referral to pharmacist for: co-management. Office Information: Prescriber: Dr. cSott Patient has completed 12 weeks induction. Patient [...] 06/01/2024 9:40 AM EDT Office Visit Gastroenterology, [facility] [address] [address] Gucci Scott MD [address] [address] Scheduled Procedures Name Priority Associated Diagnoses Date/Ti [...] filedocumented as of this encounter Care Teams Him Specialists Relationship Specialty Start Date End Date December, Garo Vuong MD [address] [place] [facility] [place] [address] PCP - General Family Medicine 08/04/23 documented as of this encounter
--- OUTSIDE RECORDS SUMMARY | 2024-02-19 16:53 | External Medical Summary | Summary of Care ---
Author Name Unknown Organization [facility] Address [address] [place] [address] Phone [phone] Care Team Providers Care Marketing Program Manager Name Role Phone Garo Aponte MD Primary Care Provider [phone] Reason for Visit * Reason Onset Date Comments Precert Approved 02/09/2024 Rinvoq Encounter Details Date Type Department Care Team (Late st Contact Info) Description 02/09/2024 Telephone Gastroenterology, [place] [address], [place] [phone] Gucci Scott MD [address] [place] [address] Precert Approved (Rinvoq) Allergies Active Allergy Reactions [...] PPD 09/14/2015,09/29/2009 Pneumococcal Conjugate Vacci ne, 20-valent ([id number]) 08/04/2023 Seasonal Influenza, PF, 6 M & [...] disease K50.90. Specialty medication - route to [id number]. Referral to pharmacist for: co-management. Office Information: [...] 06/01/2024 9:40 AM EDT Office Visit Gastroenterology, [facility] [address] [address] Gucci Scott MD [address] [address] Scheduled Procedures Name Priority Associated Diagnoses Date/Ti [...] filedocumented as of this encounter Care Teams Marketing Program Manager Relationship Specialty Start Date End Date December, Garo Vuong MD [address] [place] [address] PCP - General Family Medicine 08/04/23 documented as of this encounter
--- OUTSIDE RECORDS SUMMARY | 2024-02-19 16:53 | External Medical Summary | Summary of Care ---
Author Name Unknown Organization [facility] Address [address] [place] [address] Phone [phone] Care Team Providers Care Microelectronics Technician Name Role Phone Garo Aponte MD Primary Care Provider [phone] Reason for Visit * Reason Onset Date Comments Precert In Process 02/09/2024 11 Brenda MICHAUD Rinvoq Encounter Details Date Type Department Care Team (Late st Contact Info) Description [facility] [place] [address], [place] [phone] Gucci Scott MD [address] [place] [address] Precert In Process (11 Brenda MICHAUD Rinvoq) [...] PPD 09/14/2015,09/29/2009 Pneumococcal Conjugate Vacci ne, 20-valent ([id number]) 08/04/2023 Seasonal Influenza, PF, 6 M & [...] disease K50.90. Specialty medication - route to [id number]. Referral to pharmacist for: co-management. Office Information: [...] 06/01/2024 9:40 AM EDT Office Visit Gastroenterology, [facility] [address] [address] Gucci Scott MD [address] [address] Scheduled Procedures Name Priority Associated Diagnoses Date/Ti [...] filedocumented as of this encounter Care Teams Microelectronics Technician Relationship Specialty Start Date End Date December, Garo Vuong MD [address] [place] [address] PCP - General Family Medicine 08/04/23 documented as of this encounter
--- OUTSIDE RECORDS SUMMARY | 2024-02-19 16:54 | External Medical Summary | Summary of Care ---
Author Name Unknown Organization [facility] Address [address] [place] [address] Phone [phone] Care Team Providers Care Assembler Cards And Announcements Name Role Phone Garo Aponte MD Primary Care Provider [phone] Reason for Visit * Reason Comments eRx-Medication Refill Encounter Details Date Type Department Care Team (Late st Contact Info) Description 02/09/2024 Refill Gastroenterology, [facility] [address] [place] [address] Gucci Scott MD [address] [place] [address] Crohn's disease with fistula, unspecified gastrointestinal tract location (HCC) Allergies Active Allergy Reactions Criticality Noted Date [...] PPD 09/14/2015,09/29/2009 Pneumococcal Conjugate Vacci ne, 20-valent ([id number]) 08/04/2023 Seasonal Influenza, PF, 6 M & [...] encounter Miscellaneous Notes * Telephone Encounter - Lisette Blake [facility] - 02/09/2024 10:03 AM EDT Refused Prescriptions: Disp Refills Rinvoq 45 MG Oral Tablet Extended Release *28 Tab*5 Sig: TAKE 1TABLET DAILYRefused By: LISETTE BLAKE for Refusal: Dose needs clarification * Telephone Encounter - Lisette Blake [facility] - 02/09/2024 10:03 AM EDT Patient will be completing Rinvoq 45mg induction and switching to 30mg maintenance. * Telephone Encounter - Rosanna Aguilar [facility] - 02/09/2024 6:13 AM EDT Pending Prescriptions: Disp Refills Rinvoq 45 MG Oral Tablet Extended Release *28 Tab*5 Sig: TAKE 1TABLET DAILY documented in this encounter Plan of Treatment Upcoming Encounters Date Type Department Care Team (Late st Contact Info) Description 06/01/2024 9:40 AM EDT Office Visit Gastroenterology, [facility] [address] [address] Gucci Scott MD [address] [address] Scheduled Procedures Name Priority Associated Diagnoses Date/Ti [...] with fistula, unspecified gastrointestinal tract location (HCC) documented in this encounter Care Teams Assembler Cards And Announcements Relationship Specialty Start Date End Date December, Garo Vuong MD [address] [place] [address] PCP - General Family Medicine 08/04/23 documented as of this encounter
--- OUTSIDE RECORDS SUMMARY | 2024-02-19 16:54 | External Medical Summary | Summary of Care ---
Author Name Unknown Organization [facility] Address [address] [place] [address] Phone [phone] Care Team Providers Care Neurology Stroke Physician Name Role Phone Garo Aponte MD Primary Care Provider [phone] Reason for Visit * Reason Onset Date Comments Test Results 11/13/2023 Encounter Details Date Type Department Care Team (Late st Contact Info) Description 11/13/2023 Telephone Gastroenterology, [facility] [address] [place] [address] Gucci Scott MD [address] [place] [address] Test Results Allergies Active Allergy Reactions Criticality Noted Date Comments Diphenoxylate-Atropi ne 05/23/2023 Other Reaction(s): Not available Lomotil Other (Please comment) High 09/29/2009 Lose of sight documented as of this encounter (statuses as of 12/09/2023) Medications Medication Sig Dispensed Refills Start Date End Date Status fluticasone (FLONASE) 50 MCG/ACT nasal sprayIndications: Allergic rhinitis USE TWO SPRAYS IN EACH NOSTRIL DAILY 16 g 4 11/19/2017 Active Ferrous Sulfate (IRON) 325 (65 Fe) MG TABS Take 1 Tablet by mouth in the morning. 0 Active Hydrocortisone 0.5 % cream Apply topically to affected area 2 times a day. Apply one time a day as needed for rash 0 Active omeprazole (PRILOSEC) 40 MG CPDRIndications:G ERD (gastroesophageal reflux disease) TAKE ONE CAPSULE BY MOUTH DAILY 90 Cap 1 11/02/2019 Active ProAir HFA 108 (90 Base) MCG/ACT Inhalation Aerosol Solution Inhale by mouth 2 Puffs 4 times a day . 18 g 1 03/18/2022 Active Additional Information Patient not taking.Reported on 04/16/2023 Hydrocortisone Acetate 25 MG Rectal Suppository (Anusol-HC) Administer into the rectum 2 times a day in the morning and at bedtime as needed for Hemorrhoids. Up to 2 weeks. 24 Suppository 1 03/18/2022 Active Descovy 200-25 MG Oral Tablet Take 1 Tablet by mouth in the morning. 0 12/23/2022 Active Balsalazide Disodium 750 MG Oral Capsule TAKE 2 CAPSULES BY MOUTH TWICE DAILY 360 Capsule 3 07/08/2023 Active Atenolol 25 MG Oral Tablet (Tenormin)Indicat ions:Performance anxiety Take 1 Tablet by mouth daily as needed (performance anxiety). 30 Tablet 2 08/04/2023 Active Finasteride 1 MG Oral TabletIndications :Male pattern baldness Take 1 Tablet by mouth in the morning. 90 Tablet 3 10/29/2023 Active Humira Pen 40 MG/0.8ML Subcutaneous Pen-injector Kit (Adalimumab)Indic ations:Ulcerative (chronic) pancolitis with other complication (HCC) Starting at day 29, Inject 1 pen (40mg) under the skin every 2 weeks 2 Each 5 06/27/2023 11/28/19 24 Discontinu ed(End of Procedure) documented as of this encounter (statuses as of 12/09/2023) Active Problems Problem Noted Date Diagnosed Date PSC (primary sclerosing cholangitis) 10/07/2023 Crohn's disease with fistula 08/04/2023 Ulcerative (chronic) pancolitis with other compl ication 10/11/2021 Performance anxiety 08/02/2014 GERD (gastroesophageal reflux disease) 3 Ulcerative colitis 07/11/2009 ADVANCE DIRECTIVE INFORMATION 11/18/2006 Overview: No, Advance Directive brochure given to patient. documented as of this encounter (statuses as of 12/09/2023) Resolved Problems Problem Noted Date Diagnosed Date Resolved Date Ulcerative colitis 07/28/2015 5 documented as of this encounter (statuses as of 12/09/2023) Immunizations Name Administration Dates Next Due COVID-19 mRNA, LNP-s, No Pre serve, 2-Dose Series (Pfizer) 07/11/2021,2020,11/01/2020 DTP Vaccine 10/09/1992, 0,01/23/1989,1987,03/12/1988 H1N1 2009 Influenza, IM 06/28/2009,06/27/2009 Haemophilius B (HIB), unspecified 05/13/1990 Hepatitis B Vaccine 05/20/2000,02/07/1999,1995 MMR - Measles/Mumps/Rubella Vaccine 10/09/1992,0 04/16/1989 OPV - Polio Virus Vaccine (Oral) 993,05/13/1990,05/23/1988,1987 PPD 09/14/2015,09/29/2009 Pneumococcal Conjugate Vacci ne, 20-valent ([id number]) 08/04/2023 Seasonal Influenza, PF, 6 M & above, IM , (FluLaval or Fluzone) 06/11/2023,06/21/2021,08/12/2018 Seasonal Influenza, Quadriva lent, No Preserve, IM 07/11/2016,07/28/2015 Seasonal Influenza, Split, I IV3, With Preserve, Inj 08/02/2014 TD - Tetanus/Diptheria (ADULT) 10/11/2021,2001 TDAP (age 11 and older)(Adacel) 07/03/2010 documented as of this encounter Social [...] encounter Miscellaneous Notes * Telephone Encounter - Kaila Gibson RN - 12/09/2023 11:03 AM EDT See TE from 11/27 * Telephone Encounter - Tawana Wei RPh - 11/26/2023 3:48 PM EDT Rinvoq PA requested by Carmelo on 11/24/23. * Telephone Encounter - Gucci Scott MD - 11/18/2023 7:13 PM EDT Rinvoq is fine, thx Gucci Scott MD * Telephone Encounter - Carmelo Blake RP - 11/17/2023 11:44 AM EDT Spoke with the patient and discussed benefits/risks of Stelara, Skyrizi, Rinvoq, and Infliximab. I also reviewed the Humira drug level lab. Patient wishes to proceed with Rinvoq. I placed fasting labs for patient to obtain (CBC,CMP, lipid panel). Dr. Scott - okay to proceed with Rinvoq? * Telephone Encounter - Kaila Gbison RN - 11/13/2023 8:31 AM EDT ----- Message from Gucci Scott MD sent at 11/12/2023 10:58 AM EDT ----- Drug level is low and Antibody is quite high, will require a substitution of biologic. Given fistula would utilize non-tnf if possible. Stelera, rinvoq, etc. Carmelo and Nursing team, can you contact Shai and let him know that we need to do a therapeutic substitution and inform him this is the reason the drug is likely not working. Thanks, Gucci Scott MD documented in this encounter Plan of Treatment Upcoming Encounters Date Type Department Care Team (Late st Contact Info) Description 02/03/2024 1:00 PM EDT Office Visit [facility] [address] [place] [address] December, Garo Vuong MD [address] [place] [address] Scheduled Procedures Name Priority Associated Diagnoses Date/Ti [...] Not on filedocumented as of this encounter Results * LIPID PANEL WITH DIRECT LDL IF TG IS HIGH (11/26/2023 2:13 PM EDT) Triglycerides 71 <=174 mg/dL 11/27/2023 4:22 AM EDT LABORATORY [facility] Comment: Triglyceride Reference Ranges (mg/dL): <150 Acceptable 150-174 Borderline high 175-499 High >=500 Very high Cholesterol 133 <200 mg/dL 11/27/2023 4:22 AM EDT LAB[facility]ATORY [facility] Comment: Total Cholesterol Reference Ranges (mg/dL): <200 Desirable 200-239 Borderline high >=240 High HDL Cholesterol 42 >39 mg/dL 4:22 AM EDT LAB[facility]ATORY [facility] Comment: HDL Cholesterol Reference Ranges (mg/dL): >=60 High (Desirable) <50 Low (Undesirable) For Females <40 Low (Undesirable) For Males Non-HDL Cholesterol 91 <=159 mg/dL 11/27/2023 4:22 AM EDT LAB[facility]ATORY [facility] Comment: Non-HDL Cholesterol Reference Range (mg/dL): <100 Target level for high risk ASCVD patient <130 Optimal for general population 130-159 Near optimal for general population 160-189 Borderline High 190-219 High >=220 Very High LDL Cholesterol 77 <=129 mg/dL 11/27/2023 4:22 AM EDT LAB[facility]ATORY [facility] Comment: LDL Cholesterol Reference Ranges (mg/dL): <70 Target level for high risk ASCVD patient <100 Optimal for general population 100-129 Near optimal for general population 130-159 Borderline high 160-189 High >=190 Very high Blood Venous blood specimen / Unknown Venipuncture / Unknown 11/26/2023 2:13 PM EDT 11/26/2023 2:13 PM EDT Carmelo Blake [facility] BLOOD [facility] [address] [place] [address] * (ABNORMAL) COMPREHENSIVE METABOLIC PANEL (11/26/2023 2:13 PM EDT) BUN 19 6 - 20 mg/dL 11/26/2023 3:03 PM EDT LAB[facility]ORY [place] [facility] Creatinine 1.3(H) 0.6 - 1.2 mg/dL 11/26/2023 3:03 PM EDT LAB[facility] [place] [facility] Estimated Glomerular Filtration Rate 74 >=60 mL/min 11/26/2023 3:03 PM EDT [facility] [place] [facility]10 Comment:eGFR is calculated b ased on the CKD-EPI 2020 equation Sodium 136 135 - 146 mmol/L 11/26/2023 3:03 PM EDT [facility] [place] [facility] Potassium 5.0 3.5 - 5.1 mmol/L 11/26/2023 3:03 PM EDT [facility] [place] [facility] Chloride 100 98 - 107 mmol/L 11/26/2023 3:03 PM EDT [facility] [place] [facility] CO2 26 22 - 32 mmol/L 11/26/2023 3:03 PM EDT [facility] [place] [facility] Anion Gap 10 7 - 15 mmol/L 11/26/2023 3:03 PM EDT [facility] [place] [facility] Glucose 87 70 - 120 mg/dL 11/26/2023 3:03 PM EDT [facility] [place] [facility] Albumin 4.7 3.8 - 5.0 g/dL 11/26/2023 3:03 PM EDT [facility] [place] [facility] AST 32 10 - 50 U/L 11/26/2023 3:03 PM EDT [facility] [place] [facility] Alkaline Phosphatase 87 35 - 130 U/L 11/26/2023 3:03 PM EDT [facility] [place] [facility] Bilirubin, Total 0.7 <=1.2 mg/dL 11/26/2023 3:03 PM EDT [facility] [place] [facility] Calcium 9.9 8.4 - 10.2 mg/dL 11/26/2023 3:03 PM EDT [facility] [place] [facility] Protein 7.3 6.0 - 8.3 g/dL 11/26/2023 3:03 PM EDT [facility] [place] [facility] ALT 21 10 - 50 U/L 11/26/2023 3:03 PM EDT [facility] [place] [facility] Blood Venous blood specimen / Unknown Venipuncture / Unknown 11/26/2023 2:13 PM EDT 11/26/2023 2:13 PM EDT Carmelo Blake [facility] LAB BLOOD [facility] BL[facility] [address] [facility] [address] [place] [address] documented in this encounter Visit Diagnoses Diagnosis Crohn's disease with fistula, unspecified gastrointestinal tract location (HCC)- Primary documented in this encounter Care Teams Neurology Stroke Physician Relationship Specialty Start Date End Date December, Garo Vuong MD [address] [facility] [place] [address] PCP - General Family Medicine 08/04/23 documented as of this encounter
--- OUTSIDE RECORDS SUMMARY | 2024-02-19 16:54 | External Medical Summary | Summary of Care ---
Author Name Unknown Organization [facility] Address [address] [place] [address] Phone [phone] Care Team Providers Care Rail Switchman Name Role Phone Garo Aponte MD Primary Care Provider Reason for Visit * Reason Onset Date Comments Medication Management 02/04/2024 Encounter Details Date Type Department Care Team (Late st Contact Info) Description 02/04/2024 Telephone Gastroenterology, [place] [address] [place], [place] [phone] Gucci Scott MD [address] [place] [address] Medication Management Allergies Active Allergy Reactions Criticality Noted Date [...] PPD 09/14/2015,09/29/2009 Pneumococcal Conjugate Vacci ne, 20-valent ([id number]) 08/04/2023 Seasonal Influenza, PF, 6 M & [...] Telephone Encounter - Carmelo Blake RPh - 02/09/2024 10:46 AM EDT Patient aware. Patient to contact the clinic in 1-2 months regarding the MRI. Patient to obtain fasting labs this week * Telephone Encounter - Carmelo Blake RPh - 02/09/2024 10:37 AM EDT Noted. Will begin auth for the 30mg daily maintenance dose. * Telephone Encounter - Gucci Scott MD - 02/05/2024 12:10 PM EDT Yes, agree lets increase dose and follow from there MRI in 1-2 months Thx Carmelo Scott MD * Telephone Encounter - Carmelo Blake RPh - 02/04/2024 3:[address] Scott, I spoke with the patient today for an assessment during Rinvoq induction. He is completing week seven of the twelve week 45mg daily induction. Patient does not report a difference in symptoms or fistula thus far. Experiencing 3-5 stools per day and reports no difference in the fistula. He was wondering if a follow-up scope is indicated. May you review and advise on the next steps? If Rinvoq is to be continued for now, would you be agreeable to the higher 30mg maintenance dose given minimal response thus far? Thank you, Carmelo Blake RPh documented in this encounter Plan of Treatment Upcoming Encounters Date Type Department Care Team (Late st Contact Info) Description 06/01/2024 9:40 AM EDT Office Visit Gastroenterology, [facility] [address] [place] [address] Gucci Scott MD [address] [address] Scheduled Procedures Name Priority Associated Diagnoses Date/Ti [...] filedocumented as of this encounter Care Teams Rail Switchman Relationship Specialty Start Date End Date December, Gar[facility] Vu[facility] [address] [facility] [address] PCP - General Family Medicine 08/04/23 documented as of this encounter
--- OUTSIDE RECORDS SUMMARY | 2024-02-19 16:54 | External Medical Summary | Summary of Care ---
Author Name Unknown Organization [facility] Address [address] [place] [address] Phone [phone] Care Team Providers Care Emergency Worker Name Role Phone Garo Aponte MD Primary Care Provider Reason for Visit * Reason Comments Dosage Adjustment Via Phone (anticoag Cl inic) Encounter Details Date Type Department Care Team (Late st Contact Info) Description 02/04/2024 1:30 PM EDT Telemedicine Gastroenterology, [place] [address] [place], [place] [phone] [place], Pharmacist Gastro [address] [place], [place] [phone] Crohn's disease with fistula, unspecified gastrointestinal tract location (HCC)*; long term care social worker current use of upadacitinib Allergies Active Allergy Reactions Criticality Noted Date Comments Diphenoxylate-Atropi ne 05/23/2023 Other Reaction(s): Not available Lomotil Other (Please comment) High 09/29/2009 Lose of sight documented as of this encounter (statuses as of 02/04/2024) Medications Medication Sig Dispensed Refills Start Date [...] as of this encounter (statuses as of 02/04/2024) Active Problems Problem Noted Date Diagnosed Date PSC (primary sclerosing cholangitis) 10/07/2023 Crohn's disease with fistula 08/04/2023 Ulcerative (chronic) pancolitis with other compl ication 10/11/2021 Performance anxiety 08/02/2014 GERD (gastroesophageal reflux disease) 3 Ulcerative colitis 07/11/2009 ADVANCE DIRECTIVE INFORMATION 11/18/2006 Overview: No, Advance Directive brochure given to patient. documented as of this encounter (statuses as of 02/04/2024) Resolved Problems Problem Noted Date Diagnosed Date Resolved Date Ulcerative colitis 07/28/2015 5 documented as of this encounter (statuses as of 02/04/2024) Immunizations Name Administration Dates Next Due COVID-19 mRNA, LNP-s, No Pre serve, 2-Dose Series (Pfizer) 07/11/2021,2020,11/01/2020 H1N1 2009 Influenza, IM 06/28/2009,06/27/2009 PPD 09/14/2015,09/29/2009 Pneumococcal Conjugate Vacci ne, 20-valent ([id number]) 08/04/2023 Seasonal Influenza, PF, 6 M & [...] on file documented as of this encounter Progress Notes * Carmelo Blake, [facility] - 02/04/2024 3:19 PM EDT After connecting to the patient via telephone, the patient was identified by name and date of . Patient was then informed that this was a telephone call only visit. The patient agreed to participate. Visit Disposition: Routine follow-up Total call duration was 20 minutes. Gastroenterology Clinical Pharmacy Service: Medication Management Gastroenterology Provider: Dr. Scott Date of next clinic appointment: 06/01/24 ASSESSMENT Disease Type: Autoimmune, Crohn's disease (CD) CURRENT MEDICATION REGIMEN Rinvoq 45mg daily x 12 weeks, then maintenance Date of initiation of present therapy: 12/17/23. Is this a new therapy? yes Stop date for present therapy: not applicable at this time. MEDICATION ASSESSMENT Adherence: no missed doses per patient Side Effects Reported: no What does patient do when he has these side effects? N/A SYMPTOM/ILLNESS ASSESSMENT Patient account of regimen effectiveness: no improvement in condition/symptoms. Abdominal pain? no How many stools per day? 3-5 +/- bloody? no Urgency? no DATA Past Surgical History: Procedure Laterality Date COLONOSCOPY 2008 COLONOSCOPY, DIAGNOSTIC (RECTUM) 09/14/2013 COLONOSCOPY FLEXIBLE PROXIMAL DIAGNOSTIC performed by Gucci Scott MD at [facility] COLONOSCOPY, DIAGNOSTIC (RECTUM) 07/08/2014 left sided colitis/COLONOSCOPY FLEXIBLE PROXIMAL DIAGNOSTIC performed by Gucci Scott MD at [facility] COLONOSCOPY, DIAGNOSTIC (RECTUM) 10/06/2015 mild-mod inflammation/COLONOSCOPY FLEXIBLE PROXIMAL DIAGNOSTIC performed by Gucci Scott MD at [facility] COLONOSCOPY, DIAGNOSTIC (RECTUM) 10/15/2018 mild inflammation, repeat 1 yr/COLONOSCOPY FLEXIBLE PROXIMAL DIAGNOSTIC performed by Gucci Scott MD at [facility] COLONOSCOPY, DIAGNOSTIC (RECTUM) 09/19/2021 mild inflammtion on bx / COLONOSCOPY FLEXIBLE PROXIMAL DIAGNOSTIC performed by Jeri Simeon MD at [facility] COLONOSCOPY, DIAGNOSTIC (RECTUM) 04/17/2023 limited inflammation located in the distal rectum / COLONOSCOPY FLEXIBLE PROXIMAL DIAGNOSTIC performed by Gucci Scott MD at [facility] REPAIR HUMERAL SHAFT FX W/PLATE Humerus Fracture Open Fixatn Mid CT ABD/PELVIS W IV AND W ORAL CONTRAST Result Date: 10/09/2023 IMPRESSION Partially visualized perianal fistula. Consider MRI for better soft tissue characterization. ASSESSMENT: Spoke with patient for week 6 assessment after starting Rinvoq. Patient has not noticed an improvement in symptoms or in the fistula thus far. He is aware and agreeable to obtain fasting labs within the next week. Patient states he currently does not have a general surgery appointment scheduled. Will montior for completion of labs and coordinate the maintenance Rinvoq dose and/or next steps as indicated. Carmelo Blake RP Clinical Pharmacist, Gastroenterology documented in this encounter Plan of Treatment Upcoming Encounters Date Type Department Care Team (Late st Contact Info) Description 06/01/2024 9:40 AM EDT Office Visit Gastroenterology, [facility] [address] [address] Gucci Scott MD [address] [place] [place] [address] Scheduled Orders Name Type Priority Associated Diagnoses Orde r Schedule CBC WITH WBC DIFFERENTIAL Lab Routine Crohn's disease with fistula, unspecified gastrointestinal tract location (HCC) long term care social worker current use of upadacitinib Expected: 02/04/2024, Expires: 02/03/2025 COMPREHENSIVE METABOLIC PANEL Lab Routine Crohn's disease with fistula, unspecified gastrointestinal tract location (HCC) long term care social worker current use of upadacitinib Expected: 02/04/2024, Expires: 02/03/2025 LIPID PANEL WITH DIRECT LDL IF TG IS HIGH Lab Routine Crohn's disease with fistula, unspecified gastrointestinal tract location (HCC) prison current use of upadacitinib Expected: 02/04/2024, Expires: 02/03/2025 Scheduled Procedures Name Priority Associated Diagnoses Date/Ti [...] fistula, unspecified gastrointestinal tract location (HCC)- Primary prison current use of upadacitinib documented in this encounter Care Teams Emergency Worker Relationship Specialty Start Date End Date December, Garo Vuong MD [address] [place] [address] PCP - General Family Medicine 08/04/23 documented as of this encounter
--- OUTSIDE RECORDS SUMMARY | 2024-02-19 16:54 | External Medical Summary | Summary of Care ---
Author Name Unknown Organization [facility] Address [address] [place] [address] Phone [phone] Care Team Providers Care Director Organizational Name Role Phone Garo Aponte MD Primary Care Provider [phone] Reason for Visit * Reason Onset Date Comments Medication Management 02/04/2024 Encounter Details Date Type Department Care Team (Late st Contact Info) Description 02/04/2024 Telephone Gastroenterology, [place] [address], [place] [phone] Gucci Scott MD [address] [place] [address] Medication Management Allergies Active Allergy Reactions Criticality [...] PPD 09/14/2015,09/29/2009 Pneumococcal Conjugate Vacci ne, 20-valent ([id number]) 08/04/2023 Seasonal Influenza, PF, 6 M & [...] 06/01/2024 9:40 AM EDT Office Visit Gastroenterology, [facility] [address] [address] Gucci Scott MD [address] [address] Scheduled Procedures Name Priority Associated Diagnoses Date/Ti [...] filedocumented as of this encounter Care Teams Director Organizational Relationship Specialty Start Date End Date December, Garo Vuong MD [address] [place] [address] PCP - General Family Medicine 08/04/23 documented as of this encounter
--- OUTSIDE RECORDS SUMMARY | 2024-02-19 16:54 | External Medical Summary | Summary of Care ---
Author Name Unknown Organization [facility] Address [address] [place] [address] Phone [phone] Care Team Providers Care Wet Process Assistant Head Miller Name Role Phone Garo Aponte MD Primary Care Provider [phone] Reason for Visit * Reason Onset Date Comments Medication Management 02/04/2024 Encounter Details Date Type Department Care Team (Late st Contact Info) Description 02/04/2024 Telephone Gastroenterology, [place] [address], [place] [phone] Gucci Scott MD [address] [place] [address] Medication Management Allergies Active Allergy Reactions Criticality [...] PPD 09/14/2015,09/29/2009 Pneumococcal Conjugate Vacci ne, 20-valent ([email or web address]) 08/04/2023 Seasonal Influenza, PF, 6 M & [...] Miscellaneous Notes * Telephone Encounter - Carmelo Blake, [facility] - 02/04/2024 3:[address] Scott, [...] 06/01/2024 9:40 AM EDT Office Visit Gastroenterology, [facility] [address] [place] [address] Gucci Scott MD [address] [place] [address] Scheduled Procedures Name Priority Associated Diagnoses Date/Ti [...] filedocumented as of this encounter Care Teams Wet Process Assistant Head Miller Relationship Specialty Start Date End Date December, Garo Vuong MD [address] [address] PCP - General Family Medicine 08/04/23 documented as of this encounter
--- OUTSIDE RECORDS SUMMARY | 2024-02-19 16:54 | External Medical Summary | Summary of Care ---
Author Name Unknown Organization [facility] Address [address] [place] [address] Phone [phone] Care Team Providers Care Delphi Programmer Name Role Phone Garo Aponte MD Primary Care Provider [phone] Reason for Visit * Reason Onset Date Comments Medication Management 02/04/2024 Encounter Details Date Type Department Care Team (Late st Contact Info) Description 02/04/2024 Telephone Gastroenterology, [place] [address] [place], [place] [phone] Gucci Scott MD [address] [place] [address] Medication Management Allergies Active Allergy Reactions Criticality Noted Date Comments Diphenoxylate-Atropi ne 05/23/2023 Other Reaction(s): Not available Lomotil Other (Please comment) High 09/29/2009 Lose of sight documented as of this encounter (statuses as of 02/05/2024) Medications Medication Sig Dispensed Refills Start Date [...] as of this encounter (statuses as of 02/05/2024) Active Problems Problem Noted Date Diagnosed Date PSC (primary sclerosing cholangitis) 10/07/2023 Crohn's disease with fistula 08/04/2023 Ulcerative (chronic) pancolitis with other compl ication 10/11/2021 Performance anxiety 08/02/2014 GERD (gastroesophageal reflux disease) 3 Ulcerative colitis 07/11/2009 ADVANCE DIRECTIVE INFORMATION 11/18/2006 Overview: No, Advance Directive brochure given to patient. documented as of this encounter (statuses as of 02/05/2024) Resolved Problems Problem Noted Date Diagnosed Date Resolved Date Ulcerative colitis 07/28/2015 5 documented as of this encounter (statuses as of 02/05/2024) Immunizations Name Administration Dates Next Due COVID-19 mRNA, LNP-s, No Pre serve, 2-Dose Series (Pfizer) 07/11/2021,2020,11/01/2020 DTP Vaccine 10/09/1992, 0,01/23/1989,1987,03/12/1988 H1N1 2009 Influenza, IM 06/28/2009,06/27/2009 Haemophilius B (HIB), unspecified 05/13/1990 Hepatitis B Vaccine 05/20/2000,02/07/1999,1995 MMR - Measles/Mumps/Rubella Vaccine 10/09/1992,0 04/16/1989 OPV - Polio Virus Vaccine (Oral) 993,05/13/1990,05/23/1988,1987 PPD 09/14/2015,09/29/2009 Pneumococcal Conjugate Vacci ne, 20-valent ([email or web address]) 08/04/2023 Seasonal Influenza, PF, 6 M & [...] encounter Miscellaneous Notes * Telephone Encounter - Gucci Scott MD - 02/05/2024 12:10 PM EDT Yes, agree lets increase dose and follow from there MRI in 1-2 months Thx Carmelo Scott MD * Telephone Encounter - Carmelo Blake [facility] - 02/04/2024 3:[address] Scott, [...] 06/01/2024 9:40 AM EDT Office Visit Gastroenterology, [facility] [address] [address] Gucci Scott MD [address] [address] Scheduled Procedures Name Priority Associated Diagnoses Date/Ti [...] filedocumented as of this encounter Care Teams Delphi Programmer Relationship Specialty Start Date End Date December, Garo Vuong MD [address] [place] [facility] [place] [address] PCP - General Family Medicine 08/04/23 documented as of this encounter
--- OUTSIDE RECORDS SUMMARY | 2024-02-19 16:54 | External Medical Summary | Summary of Care ---
Author Name Unknown Organization [facility] Address [address] [place] [address] Phone [phone] Care Team Providers Care Multiple Wire Sawyer Name Role Phone Garo Aponte MD Primary Care Provider [phone] Encounter Details Date Type Department Care Team (Late st Contact Info) Description 02/09/2024 Telephone Gastroenterology, [place] [address] [place], [place] [phone] Gucci Scott MD [address] [place] [address] Allergies Active Allergy Reactions Criticality Noted Date [...] mRNA, LNP-s, No Pre serve, 2-Dose Series (RENTISH) 07/11/2021,2020,11/01/2020 DTP Vaccine 10/09/1992, 0,01/23/1989,1987,03/12/1988 H1N1 2009 Influenza, IM 06/28/2009,06/27/2009 Haemophilius B (HIB), unspecified 05/13/1990 Hepatitis B Vaccine 05/20/2000,02/07/1999,1995 MMR - Measles/Mumps/Rubella Vaccine 10/09/1992,0 04/16/1989 OPV - Polio Virus Vaccine (Oral) 993,05/13/1990,05/23/1988,1987 PPD 09/14/2015,09/29/2009 Pneumococcal Conjugate Vacci ne, 20-valent ([email or web address]) 08/04/2023 Seasonal Influenza, PF, 6 M & [...] disease K50.90. Specialty medication - route to [id number]. Referral to pharmacist for: co-management. Office Information: [...] 9:40 AM EDT Office Visit Gastroenterology, [facility] [address] [place] [address] Gucci Scott MD [address] [place] [address] Scheduled Procedures Name Priority Associated Diagnoses Date/Ti [...] filedocumented as of this encounter Care Teams Multiple Wire Sawyer Relationship Specialty Start Date End Date December, Grao Vuong MD [address] [place] [address] PCP - General Family Medicine 08/04/23 documented as of this encounter
--- OUTSIDE RECORDS SUMMARY | 2024-02-19 16:55 | External Medical Summary | Summary of Care ---
Author Name Unknown Organization [facility] Address [address] [place] [address] Phone [phone] Care Team Providers Care Pharmacy Technician Inpatient Name Role Phone Garo Aponte MD Primary Care Provider [phone] Reason for Visit * Reason Comments Follow Up Anal fistula - MRI s howing a suprasphincteric fistula , to start renvoq at some point- is on humira currently , due for his next injection Encounter Details Date Type Department Care Team (Late st Contact Info) Description 11/26/2023 1:45 PM EDT Office Visit General Surgery, [facility] [address] [place] [address] Emma Rincon MD [address] [place] [address] Crohn's disease of large intestine with fistula (HCC)*; Anal fistula [K60.3 (ICD-10-CM)] Allergies Active Allergy Reactions Criticality Noted Date Comments Diphenoxylate-Atropi ne 05/23/2023 Other Reaction(s): Not available Lomotil Other (Please comment) High 09/29/2009 Lose of sight documented as of this encounter (statuses as of 11/26/2023) Medications Medication Sig Dispensed Refills Start Date End Date Status fluticasone (FLONASE) 50 MCG/ACT nasal sprayIndications:A llergic rhinitis USE TWO SPRAYS IN EACH NOSTRIL DAILY 16 g 4 11/19/2017 Active Ferrous Sulfate (IRON) 325 (65 Fe) MG TABS Take 1 Tablet by mouth in the morning. 0 Active Hydrocortisone 0.5 % cream Apply topically to affected area 2 times a day. Apply one time a day as needed for rash 0 Active omeprazole (PRILOSEC) 40 MG CPDRIndications:GE RD (gastroesophageal reflux disease) TAKE ONE CAPSULE BY [...] mouth in the morning. 0 12/23/2022 Active Humira Pen 40 MG/0.8ML Subcutaneous Pen-injector Kit (Adalimumab)Indica tions:Ulcerative (chronic) pancolitis with other complication (HCC) Starting at day 29, Inject 1 pen (40mg) under the skin every 2 weeks 2 Each 5 06/27/2023 Active Balsalazide Disodium 750 MG Oral Capsule TAKE 2 CAPSULES BY MOUTH TWICE DAILY 360 Capsule 3 07/08/2023 Active Atenolol 25 MG Oral Tablet (Tenormin)Indicati ons:Performance anxiety Take 1 Tablet by mouth daily as needed (performance anxiety). 30 Tablet 2 08/04/2023 Active Finasteride 1 MG Oral TabletIndications: Male pattern baldness Take 1 Tablet by mouth in the morning. 90 Tablet 3 10/29/2023 Active documented as of this encounter (statuses as of 11/26/2023) Active Problems Problem Noted Date Diagnosed Date PSC (primary sclerosing cholangitis) 10/07/2023 Crohn's disease with fistula 08/04/2023 Ulcerative (chronic) pancolitis with other compl ication 10/11/2021 Performance anxiety 08/02/2014 GERD (gastroesophageal reflux disease) 3 Ulcerative colitis 07/11/2009 ADVANCE DIRECTIVE INFORMATION 11/18/2006 Overview: No, Advance Directive brochure given to patient. documented as of this encounter (statuses as of 11/26/2023) Resolved Problems Problem Noted Date Diagnosed Date Resolved Date Ulcerative colitis 07/28/2015 5 documented as of this encounter (statuses as of 11/26/2023) Immunizations Name Administration Dates Next Due COVID-19 mRNA, LNP-s, No Pre serve, 2-Dose Series (Pfizer) 07/11/2021,2020,11/01/2020 H1N1 2009 Influenza, IM 06/28/2009,06/27/2009 PPD 09/14/2015,09/29/2009 Pneumococcal Conjugate Vacci ne, 20-valent ([id number]) 08/04/2023 Seasonal Influenza, PF, 6 M & above, IM , (FluLaval or Fluzone) 06/11/2023,06/21/2021,08/12/2018 Seasonal Influenza, Quadriva lent, No Preserve, IM 07/11/2016,07/28/2015 Seasonal Influenza, Split, I IV3, With Preserve, Inj 08/02/2014 TD - Tetanus/Diptheria (ADULT) 10/11/2021 TDAP (age 11 and older)(Adacel) 07/03/2010 documented [...] on file documented as of this encounter Last Filed Vital Signs Vital Sign Reading Time Taken Comments Blood Pressure 132/83 11/26/2023 1:48 PM EDT Pulse 68 11/26/2023 1:48 PM EDT Temperature 36.7 C (98.1 F) 11/26/2023 1:48 PM ED T Respiratory Rate - - Oxygen Saturation 98% 11/26/2023 1:48 PM EDT Inhaled Oxygen Concentration - - Weight 94.7 kg (208 lb 12.8 oz) 11/26/2023 1:48 PM EDT Height - - Body Mass Index 29.96 08/04/2023 12:31 PM EST documented in this encounter Progress Notes * Emma Rincon MD - 11/26/2023 2:18 PM EDT COLORECTAL SURGERY HISTORY AND PHYSICAL [facility] [place], [place] DATE: 11/26/2023 Referring Physician: 1. Gregorio Herbert DO Primary Care Physician: Gregorio Herbert DO HISTORY OF PRESENT ILLNESS: Shai Hernández returns for a follow-up visit. Since his last visit he continues to have drainage from his fistula. He was started on humira but was found to have lowdrug levels and high antibodies. He is being transitioned to Rinvoq. He denies any fever, chills, CP or shortness of breath. He denies any rectal pain or bleeding. 06/11/23: Shai Hernández returns for a follow-up visit. Since his last visit he underwent colonoscopy and was seen again by GI with plans to start humira. He has not yet started the humira. He denies any new symtpoms. He continues to have drainage from the fistula which has not worsened. He denies any pain. He is having normal bowel movements. 04/02/23:Mr. Hernández is a 37 year old male presenting today for evaluation of ulcerative colitis withanal fistula. He has been followed by Dr. Brothers at [facility] who has referred him to us. He first developed a lump in September 2022. He had a perianal abscess lanced 11/2022 by his PCP and since that timethe incision site has continued to occasionally drain. Dr. Brothers ordered an MRI due to concern for complex fistula showing a suprasphincteric fistula. He has never had anything like this before. He was first diagnosed with UC at age 24. He takes balsalazide for his colitis and has had good control with this for years, last colonoscopy 09/19/2021 with no evidence of colitis. He denies any familyhistory of crohn's disease or colon CA. He is having normal bowel function (3-4 BM daily). He denies any melena or hematochezia. He denies any fever, chills, CP or shortness of breath. Colonoscopy (04/17/23): Impression: - The examined portion of the ileum was normal. Biopsied. - The ascending colon is normal. Biopsied. - The descending colon is normal. Biopsied. - Friable (with contact bleeding) and granular mucosa in the rectum. Biopsied. - Three 4 to 7 mm polyps in the transverse colon, removed with a cold snare. Resected and retrieved. IMAGING: MRI Pelvis 03/20/23 FINDINGS There is a complex, suprasphincteric perianal fistula. There is a component that arises from the approximate 6 o'clock position (image 12, series 6), extending through the internal and external anal sphincter and connecting to a component that extends through the left levator muscle, along the leftlower rectum at approximately the 3 o'clock position. This together extends inferiorly through the ischioanal fossa and to the left medial gluteal fold/skin. Additionally, there is a right-sided component of the fistula extending from the 6 o'clock position superiorly to extend along the lower rectum, at the approximate 9 o'clock position (image 2, series 6). There are several nonspecific mildly prominent mesorectal lymph nodes, measuring up to 0.7 cm. IMPRESSION Complex perianal fistula, as described. PATHOLOGY: Colonoscopy 09/19/2021 A. Ascending colon, biopsy: Colonic mucosa with mild active inflammation, including cryptitis. B. Transverse colon, biopsy: Colonic mucosa with mild active inflammation, including cryptitis. C. Descending colon, biopsy: Colonic mucosa with focal active inflammation. D. Sigmoid colon, biopsy: Colonic mucosa with mild active inflammation, including cryptitis. E. Rectum, biopsy: Colonic mucosa with mild active inflammation, including cryptitis. REVIEW OF SYSTEMS: PERTINENT POSTIVES AND NEGATIVES NOTED ALL OTHER SYSTEMS REVIEWED AND ARE NEGATIVE IN DETAIL PAST MEDICAL HISTORY: Past Medical History: Diagnosis Date Bacterial infection due to Streptococcus, group B Ulcerative colitis (HCC) MEDICATIONS: Outpatient Medications Marked as Taking for the 11/26/23 encounter (Office Visit) with Nataly Rincon MD Medication Sig Finasteride 1 MG Oral Tablet Take 1 Tablet by mouth in the morning. Atenolol 25 MG Oral Tablet (Tenormin) Take 1 Tablet by mouth daily as needed (performance anxiety). Balsalazide Disodium 750 MG Oral Capsule TAKE 2 CAPSULES BY MOUTH TWICE DAILY Humira Pen 40 MG/0.8ML Subcutaneous Pen-injector Kit (Adalimumab) Starting at day 29, Inject 1 pen (40mg) under the skin every 2 weeks Descovy 200-25 MG Oral Tablet Take 1 Tablet by mouth in the morning. Hydrocortisone Acetate 25 MG Rectal Suppository (Anusol-HC) Administer into the rectum 2 times a day in the morning and at bedtime as needed for Hemorrhoids. Up to 2 weeks. omeprazole (PRILOSEC) 40 MG CPDR TAKE ONE CAPSULE BY MOUTH DAILY Hydrocortisone 0.5 % cream Apply topically to affected area 2 times a day. Apply one time a day as needed for rash Ferrous Sulfate (IRON) 325 (65 Fe) MG TABS Take 1 Tablet by mouth in the morning. fluticasone (FLONASE) 50 MCG/ACT nasal spray USE TWO SPRAYS IN EACH NOSTRIL DAILY ALLERGIES TO MEDICATIONS: Review of patient's allergies indicates: Review of patient's allergies indicates: Allergen Reactions Lomotil Other (Please comment) Lose of sight Diphenoxylate-Atropine Other Reaction(s): Not available PAST SURGICAL HISTORY: Past Surgical History: Procedure Laterality Date COLONOSCOPY 2008 COLONOSCOPY, DIAGNOSTIC (RECTUM) 09/14/2013 COLONOSCOPY FLEXIBLE PROXIMAL DIAGNOSTIC performed by Gucci Scott MD at [facility] COLONOSCOPY, DIAGNOSTIC (RECTUM) 07/08/2014 left sided colitis/COLONOSCOPY FLEXIBLE PROXIMAL DIAGNOSTIC performed by Gucci Scott MD at [facility] COLONOSCOPY, DIAGNOSTIC (RECTUM) 10/06/2015 mild-mod inflammation/COLONOSCOPY FLEXIBLE PROXIMAL DIAGNOSTIC performed by Gucci Scott MD at [facility] COLONOSCOPY, DIAGNOSTIC (RECTUM) 10/15/2018 mild inflammation, repeat 1 yr/COLONOSCOPY FLEXIBLE PROXIMAL DIAGNOSTIC performed by Gucci Scott MD at [facility] COLONOSCOPY, DIAGNOSTIC (RECTUM) 09/19/2021 mild inflammtion on bx / COLONOSCOPY FLEXIBLE PROXIMAL DIAGNOSTIC performed by Jeri Simeon MD at [facility] COLONOSCOPY, DIAGNOSTIC (RECTUM) 04/17/2023 limited inflammation located in the distal rectum / COLONOSCOPY FLEXIBLE PROXIMAL DIAGNOSTIC performed by Gucci Scott MD at [facility] REPAIR HUMERAL SHAFT FX W/PLATE Humerus Fracture Open Fixatn Mid FAMILY HISTORY: Family History Problem Relation Age of Onset Anorexia nervosa Mother bulemia Hypertension Father Diabetes Grandmother (Paternal) Diabetes Aunt (Unspecified) SOCIAL HISTORY: Social History Socioeconomic History Marital status: Single Spouse name: Not on file Number of children: Not on file Years of education: Not on file Highest education level: Not on file Occupational History Occupation: corporate staff accountant Occupation: [employer] Tobacco Use Smoking status: Never Smokeless tobacco: Never Vaping Use Vaping Use: Never used Substance and Sexual Activity Alcohol use: Yes Comment: socially Drug use: No Sexual activity: Yes Partners: Female Other Topics Concern Service Not Asked Blood Transfusions Not Asked Caffeine Concern Not Asked Occupational Exposure Not Asked Hobby Hazards Not Asked Sleep Concern No Stress Concern No Weight Concern Not Asked Special Diet Not Asked Back Care Not Asked Exercise Not Asked Bike Helmet Not Asked Seat Belt Yes Self-Exams Not Asked Social History Narrative [facility] Grew up in [place] Social Determinants of Health Financial Resource Strain: Not on file Food Insecurity: No Food Insecurity (08/04/2023) Hunger Vital Sign Worried About Running Out of Food in the Last Year: Never true Ran Out of Food in the Last Year: Never true Transportation Needs: Not on file Physical Activity: Not on file Stress: Not on file Social Connections: Not on file Intimate Partner Violence: Not on file Housing Stability: Not on file PHYSICAL EXAMINATION: BP 132/83 | Pulse 68 | Temp 36.7 C (98.1 F) | Wt 94.7 kg (208 lb 12.8 oz) | SpO2 98% | BMI 29.96 kg/m | BSA 2.16 m Constitutional: well nourished, well developed, no acute distress Neck: Supple, full ROM CV: normal rate, normal rhythm Chest: normal respiratory effort Abdomen: soft, NTTP, ND Ext: no edema Skin: complete exam not performed, but no obvious gross lesions Neuro: alert, oriented to person, place, and time, motor and sensation grossly intact Rectal Exam: Deferred Imaging: MRI Pelvis (03/20/23): There is a complex, suprasphincteric perianal fistula. There is a component that arises from the approximate 6 o'clock position (image 12, series 6), extending through the internal and external anal sphincter and connecting to a component that extends through the left levator muscle, along the leftlower rectum at approximately the 3 o'clock position. This together extends inferiorly through the ischioanal fossa and to the left medial gluteal fold/skin. Additionally, there is a right-sided component of the fistula extending from the 6 o'clock position superiorly to extend along the lower rectum, at the approximate 9 o'clock position (image 2, series 6). There are several nonspecific mildly prominent mesorectal lymph nodes, measuring up to 0.7 cm. IMPRESSION and PLAN: 1) 37 year old male with likely crohn's disease and a complex anal fistula -Discussed with the patient the role of seton in managing fistulas. I explained that the goal of a seton would be to allow drainage from the fistula but would ultimately not help it heal. I explainedthat getting him therapeutic on a biologic is his best chance to having the fistula heal. He would like to hold off on a seton for now. Emma Rincon MD Associate Colorectal Surgeon, [facility] [place] hand straightener, [facility] of [address] [address] documented in this encounter Nursing Notes * Katy Murguia LPN - 11/26/2023 1:49 PM EDT Patient identified by name and date of . Chief Complaint Patient presents with Follow Up Anal fistula - MRI showing a suprasphincteric fistula , to start renvoq at some point- is on humiracurrently , due for his next injection documented in this encounter Plan of Treatment Upcoming Encounters Date Type Department Care Team (Late st Contact Info) Description 11/28/2023 7:40 AM EDT Laboratory Laboratory, [facility] [address] [facility] [id number] [facility] [address] [facility] [place] [address] 02/03/2024 1:00 PM EDT Office Visit [facility] [address] [place] [id number] DecemberGaro MD [address], [place] [id number] Scheduled Procedures Name Priority Associated Diagnoses Date/Ti me COLONOSCOPY FLEXIBLE PROXIMA L DIAGNOSTIC Recall Ulcerative pancolitis with other complication (HCC) Health Maintenance Due Date Last Done Comments COVID-19 Vaccine (2022- season) 2023 07/11/2021, 2020, 11/01/2020 Depression Screening 12/28/2023 12/27/2022 Diabetes Screening 10/11/2024 10/11/2021, 0 11/01/2020, 05/17/2020, Additional history exists DTaP,Tdap,and Td Vaccines (8 [...] this encounter Visit Diagnoses Diagnosis Crohn's disease of large intestine with fistula (HCC)- [facility] enteritis of large intestine Anal fistula [K60.3 (ICD-10-CM)] Anal fistula documented in this encounter Care Teams Pharmacy Technician Inpatient Relationship Specialty Start Date End Date December, Garo Vuong MD [address] [place] [address] PCP - General Family Medicine 08/04/23 documented as of this encounter"
--- OUTSIDE RECORDS SUMMARY | 2024-02-19 16:55 | External Medical Summary | Summary of Care ---
Author Name Unknown Organization [facility] Address [address] [place] [address] Phone [phone] Care Team Providers Care Cleaner Industrial Name Role Phone Garo Aponte MD Primary Care Provider Reason for Visit * Reason Comments Outpatient Testing Encounter Details Date Type Department Care Team (Latest Contact Info) Description 11/26/2023 2:10 PM EDT Laboratory Laboratory, [facility] [address] [facility] [place] [address] [facility] [address] [facility] [place] [address] Crohn's disease with fistula, unspecified gastrointestinal [...] Diagnosed Date Resolved Date Ulcerative colitis 07/28/2015 11/27/201 5 documented as of this encounter (statuses as of 11/26/2023) Immunizations Name Administration Dates Next Due COVID-19 mRNA, LNP-s, No Pre serve, 2-Dose Series (Pfizer) 07/11/2021,2020,11/01/2020 H1N1 2009 Influenza, IM 06/28/2009,06/27/2009 PPD 09/14/2015,09/29/2009 Pneumococcal Conjugate Vacci ne, 20-valent ([id number]) 08/04/2023 Seasonal Influenza, PF, 6 M & [...] Description 11/28/2023 7:40 AM EDT Laboratory Laboratory, [facility] [address] [place] [phone] Eileen Hays [address] [facility] [place] [address] 02/03/2024 1:00 PM EDT Office Visit [facility] [address] [facility] [place] [address] May, Garo Vuong MD [address] [facility] [place] [address] Pending Results Name Type Priority Associated Diagnoses Date /Time COMPREHENSIVE METABOLIC PANEL Lab Routine Crohn's disease with fistula, unspecified gastrointestinal tract location (HCC) 11/26/2023 2:13 PM EDT LIPID PANEL WITH DIRECT LDL IF TG IS HIGH Lab Routine Crohn's disease with fistula, unspecified gastrointestinal tract location (HCC) 11/26/2023 2:13 PM EDT Scheduled Procedures Name Priority Associated Diagnoses [...] Not on filedocumented as of this encounter Procedures Procedure Name Priority Date/Time Associated Diagnosis Comments DIFFERENTIAL, AUTOMATED Routine 11/26/2023 2:13 PM EDT Crohn's disease with fistula, unspecified gastrointestinal tract location (HCC) CBC Routine 11/26/2023 2:13 PM EDT Crohn's disease with fistula, unspecified gastrointestinal tract location (HCC) CBC Routine 11/26/2023 2:13 PM EDT Crohn's disease with fistula, unspecified gastrointestinal tract location (HCC) documented in this encounter Results * (ABNORMAL) DIFFERENTIAL, AUTOMATED (11/26/2023 2:13 PM EDT) WBC 11.16(H) 4.00 - 10.80 K/uL 11/26/2023 2:24 PM EDT [facility] Neutrophils % 73.4 40.0 - 75.0 % 11/26/2023 2:24 PM EDT [facility] [place] [facility] [facility]10 Lymphocytes % 19.8 18.0 - 42.0 % 11/26/2023 2:24 PM EDT [facility] [place] [facility] Monocytes % 6.1 1.0 - 11.0 % 11/26/2023 2:24 PM EDT [facility] [place] [facility] Eosinophils % 0.5 0.0 - 6.0 % 11/26/2023 2:24 PM EDT [facility] [place] [facility] [facility] Basophils % 0.2 0.0 - 2.0 % 11/26/2023 2:24 PM EDT [facility] [place] [facility] Absolute Neutrophils 8.19(H) 1.80 - 7.70 K/uL 11/26/2023 2:24 PM EDT [facility] [place] [facility] Absolute Lymphocytes 2.21 1.00 - 4.80 K/ul 11/26/2023 2:24 PM EDT [facility] [place] [facility] Absolute Monocytes 0.68 0.00 - 1.10 K/uL 11/26/2023 2:24 PM EDT [facility] [place] [facility] Absolute Eosinophils 0.06 0.00 - 0.70 K/uL 11/26/2023 2:24 PM EDT [facility] [place] [facility] Absolute Basophils 0.02 0.00 - 0.20 K/uL 11/26/2023 2:24 PM EDT [facility] [place] [facility] Blood Venous blood specimen / Unknown Venipuncture / Unknown 11/26/2023 2:13 PM EDT 11/26/2023 2:13 PM EDT Carmelo Reyna Lou [facility] LAB BLOOD ORDERA BLES [facility] [place] [address] * (ABNORMAL) CBC (11/26/2023 2:13 PM EDT) WBC 11.16(H) 4.00 - 10.80 K/uL 11/26/2023 2:24 PM EDT [facility] RBC 5.42 4.50 - 5.25 M/uL 11/26/2023 2:24 PM EDT [facility] HGB 16.6 14.0 - 16.8 g/dL 11/26/2023 2:24 PM EDT [facility] HCT 47.8 40.0 - 48.4 % 11/26/2023 2:24 PM EDT [facility] MCV 88.2 82.0 - 99.5 fL 11/26/2023 2:24 PM EDT [facility] MCH 30.6 27.0 - 34.0 pg 11/26/2023 2:24 PM EDT [facility] MCHC 34.7 32.0 - 36.0 g/dL 11/26/2023 2:24 PM EDT [facility] [place] [facility] RDW 12.8 11.5 - 15.5 % 11/26/2023 2:24 PM EDT [facility] PLT 229 140 - 400 K/uL 11/26/2023 2:24 PM EDT [facility] [place] [facility] MPV 10.0 6.6 - 11.1 fL 11/26/2023 2:24 PM EDT [facility] Blood Venous blood specimen / Unknown Venipuncture / Unknown 11/26/2023 2:13 PM EDT 11/26/2023 2:13 PM EDT Carmelo Laresantelmojose [facility] LAB BLOOD ORDERA BLES [facility] [facility] [place] [address] documented in this encounter Visit Diagnoses Diagnosis Crohn's disease with fistula, unspecified gastrointestinal tract location (HCC) documented in this encounter Care Teams Cleaner Industrial Relationship Specialty Start Date End Date December, Garo Vuong MD [address] [facility] [place] [address] PCP - General Family Medicine 08/04/23 documented as of this encounter
--- OUTSIDE RECORDS SUMMARY | 2024-02-19 16:55 | External Medical Summary | Summary of Care ---
Author Name Unknown Organization [facility] Address [address] [place] [address] Phone [phone] Care Team Providers Care Assistant Speech Language Pathologist Name Role Phone Garo Aponte MD Primary Care Provider [phone] Reason for Visit * Reason Comments Dosage Adjustment Via Phone (anticoag Cl inic) Encounter Details Date Type Department Care Team (Late st Contact Info) Description 11/28/2023 11:00 AM EDT Telemedicine Gastroenterology, [place] [address], [place] [phone] [place], Pharmacist Gastro [address], [place] [phone] Crohn's disease with fistula, unspecified gastrointestinal tract location (HCC)* Allergies Active Allergy Reactions Criticality Noted Date Comments Diphenoxylate-Atropi ne 05/23/2023 Other Reaction(s): Not available Lomotil Other (Please comment) High 09/29/2009 Lose of sight documented as of this encounter (statuses as of 11/28/2023) Medications Medication Sig Dispensed Refills Start Date End Date Status fluticasone (FLONASE) 50 MCG/ACT nasal sprayIndications:All ergic rhinitis USE TWO SPRAYS IN EACH NOSTRIL DAILY 16 g 4 8 Active Ferrous Sulfate (IRON) 325 (65 Fe) MG TABS Take 1 Tablet by mouth in the morning. 0 Active Hydrocortisone 0.5 % cream Apply topically to affected area 2 times a day. Apply one time a day as needed for rash 0 Active omeprazole (PRILOSEC) 40 MG CPDRIndications:GERD (gastroesophageal [...] Tablet by mouth in the morning. 0 3 Active Balsalazide Disodium 750 MG Oral Capsule TAKE 2 CAPSULES BY MOUTH TWICE DAILY 360 Capsule 3 3 Active Atenolol 25 MG Oral Tablet (Tenormin)Indication s:Performance anxiety Take 1 Tablet by mouth daily as needed (performance anxiety). 30 Tablet 2 3 Active Finasteride 1 MG Oral TabletIndications:Ma le pattern baldness Take 1 Tablet by mouth in the morning. 90 Tablet 3 4 Active Rinvoq 45 MG Oral Tablet Extended Release 24 Hour (Upadacitinib ER)Indications:Crohn 's disease with fistula, unspecified gastrointestinal tract location (HCC) Take 1 Tablet by mouth daily. 28 Tablet 2 4 Active Humira Pen 40 MG/0.8ML Subcutaneous Pen-injector Kit (Adalimumab)Indicati ons:Ulcerative (chronic) pancolitis with other complication (HCC) Starting at day 29, Inject 1 pen (40mg) under the skin every 2 weeks 2 Each 5 3 11/28/19 24 Discontinu ed(End of Procedure) Rinvoq 45 MG Oral Tablet Extended Release 24 Hour (Upadacitinib ER)Indications:Crohn 's disease with fistula, unspecified gastrointestinal tract location (HCC) Take 1 Tablet by mouth daily. 28 Tablet 2 4 11/28/19 24 Discontinu ed(Refill) documented as of this encounter (statuses as of 11/28/2023) Active Problems Problem Noted Date Diagnosed Date PSC (primary sclerosing cholangitis) 10/07/2023 Crohn's disease with fistula 08/04/2023 Ulcerative (chronic) pancolitis with other compl ication 10/11/2021 Performance anxiety 08/02/2014 GERD (gastroesophageal reflux disease) 3 Ulcerative colitis 07/11/2009 ADVANCE DIRECTIVE INFORMATION 11/18/2006 Overview: No, Advance Directive brochure given to patient. documented as of this encounter (statuses as of 11/28/2023) Resolved Problems Problem Noted Date Diagnosed Date Resolved Date Ulcerative colitis 07/28/2015 5 documented as of this encounter (statuses as of 11/28/2023) Immunizations Name Administration Dates Next Due COVID-19 mRNA, LNP-s, No Pre serve, 2-Dose Series (Quietyme) 07/11/2021,2020,11/01/2020 DTP Vaccine 10/09/1992, 0,01/23/1989,1987,03/12/1988 H1N1 2009 Influenza, IM 06/28/2009,06/27/2009 Haemophilius B (HIB), unspecified 05/13/1990 Hepatitis B Vaccine 05/20/2000,02/07/1999,1995 MMR - Measles/Mumps/Rubella Vaccine 10/09/1992,0 04/16/1989 OPV - Polio Virus Vaccine (Oral) 993,05/13/1990,05/23/1988,1987 PPD 09/14/2015,09/29/2009 Pneumococcal Conjugate Vacci ne, 20-valent ([id number]) 08/04/2023 Seasonal Influenza, PF, 6 M & [...] as of this encounter Progress Notes * Lisette Blake, [facility] - 11/28/2023 11:17 AM EDT After connecting to the patient via telephone, the patient was identified by name and date of . Patient was then informed that this was a telephone call only visit. The patient agreed to participate. Visit Disposition: Routine follow-up Total call duration was 20 minutes. Gastroenterology Clinical Pharmacy Service: Medication Management Gastroenterology Provider: Dr. Scott ASSESSMENT Disease Type: Autoimmune, Crohn's disease (CD) MTM Inflammatory Bowel Disease Management Treatment overview: Current medication: Rinvoq 45mg daily for 12 weeks, them maintenance based on response Prior authorization approval dates: 11/24/23 - 11/23/24 Specialty pharmacy: [facility] This medication belongs to a class of drugs called Janus kinase inhibitors, which block the enzyme Janus kinase (also known as SHADI) and prevent the activation of certain types of immune cells that cause inflammation. It helps to reduce irritation and swelling (inflammation) in the intestines. The medication is taken by mouth once daily. The initial dose (used for 12 weeks) will be higher than themaintenance dose. It may take up to eight weeks after starting this medication to see an improvement in symptoms. The most common side effects are acne, infections (upper respiratory infection), headache, nausea and elevated cholesterol. This medication has Black Box warnings for an increased risk of serious infections, such as herpes zoster or shingles, as well as increased risk of thrombosis, and malignancy. The patient is aware to let their provider know about other medical conditions that they may have, if they are or planning to become , and any other medications (including oulm-jgq-qommjso medications or alternative therapies) they may be taking. The patient was instructed to take the medication as directed. The patient was counseled on the importance of continuing to take their medication to prevent flares and not alter the amount of the medication or how frequently they take it, unless otherwise instructed by their provider. Routine lab monitoring may be required. The patient was encouraged to contact their provider if they experience any side effects or their symptoms worsen. Summary: Rinvoq is approved. Patient is aware and medication education completed. Health maintenance reviewed. Patient will consider the shingles vaccine. Reviewed drug interactions with Lexicomp. Patient is aware to stop Humira. Patient is aware of copay card process. Lisette Blake RPh Clinical Pharmacist, Gastroenterology documented in this encounter Miscellaneous Notes * Addendum Note - Lisette Blake RPh - 11/28/2023 11:33 AM EDTAddended by: LISETTE BLAKE on: 11/28/2023 11:33 AM Modules accepted: Orders documented in this encounter Plan of Treatment Upcoming Encounters Date Type Department Care Team (Late st Contact Info) Description 02/03/2024 1:00 PM EDT Office Visit [facility] [address] [place] [phone] December, Garo Vuong [facility] [address] [facility] [address] Scheduled Procedures Name Priority Associated Diagnoses Date/Ti [...] Primary documented in this encounter Care Teams Assistant Speech Language Pathologist Relationship Specialty Start Date End Date December, Garo Vuong MD [address] [place] [address] PCP - General Family Medicine 08/04/23 documented as of this encounter
--- OUTSIDE RECORDS SUMMARY | 2024-02-19 16:55 | External Medical Summary | Summary of Care ---
Author Name Unknown Organization [facility] Address [address] [place] [address] Phone [phone] Care Team Providers Care Care Consultant Name Role Phone Garo Aponte MD Primary Care Provider [phone] Reason for Visit * Reason Comments Dosage Adjustment Via Phone (anticoag Cl inic) Encounter Details Date Type Department Care Team (Late st Contact Info) Description 11/28/2023 11:00 AM EDT Telemedicine Gastroenterology, [place] [address] [place], [place] [phone] [place], Pharmacist Gastro [address] [place], [place] [phone] Crohn's disease with fistula, unspecified gastrointestinal tract [...] mRNA, LNP-s, No Pre serve, 2-Dose Series (Engagio) 07/11/2021,2020,11/01/2020 DTP Vaccine 10/09/1992, 0,01/23/1989,1987,03/12/1988 H1N1 2009 Influenza, IM 06/28/2009,06/27/2009 Haemophilius B (HIB), unspecified 05/13/1990 Hepatitis B Vaccine 05/20/2000,02/07/1999,1995 MMR - Measles/Mumps/Rubella Vaccine 10/09/1992,0 04/16/1989 OPV - Polio Virus Vaccine (Oral) 993,05/13/1990,05/23/1988,1987 PPD 09/14/2015,09/29/2009 Pneumococcal Conjugate Vacci ne, 20-valent ([id number]) 08/04/2023 Seasonal Influenza, PF, 6 M & [...] this encounter Progress Notes * Lisette Blake, [facility] - 11/28/2023 11:17 AM EDT After connecting [...] become , and any other medications (including xmpa-dgd-ceoklob medications or alternative therapies) they may be [...] Humira. Patient is aware of copay card information. Lisette Blake RP Clinical Pharmacist, Gastroenterology documented in this encounter Miscellaneous Notes * Addendum Note - Lisette Blake RPh - 11/28/2023 11:33 AM EDTAddended by: LISETTE BLAKE on: 11/28/2023 11:33 AM Modules accepted: Orders documented in this encounter Plan of Treatment Upcoming Encounters Date Type Department Care Team (Late st Contact Info) Description 02/03/2024 1:00 PM EDT [facility] [address] [facility] [phone] December, Garo [facility] [address] [facility] [place] [address] Scheduled Procedures Name Priority Associated Diagnoses Date/Ti [...] Primary documented in this encounter Care Teams Care Consultant Relationship Specialty Start Date End Date December, Garo Vuong MD [address] [place] [address] PCP - General Family Medicine 08/04/23 documented as of this encounter
--- OUTSIDE RECORDS SUMMARY | 2024-02-19 16:55 | External Medical Summary | Summary of Care ---
Author Name Unknown Organization [facility] Address [address] [place] [address] Phone [phone] Care Team Providers Care Maitre D Name Role Phone Garo Aponte MD Primary Care Provider [phone] Reason for Visit * Reason Onset Date Comments Precert Approved 11/24/2023 Rinvoq Encounter Details Date Type Department Care Team (Late st Contact Info) Description 11/24/2023 Telephone Gastroenterology, [place] [address] [place], [place] [phone] Gucci Scott MD [address] [place] [address] Precert Approved (Rinvoq) Allergies Active Allergy Reactions [...] PPD 09/14/2015,09/29/2009 Pneumococcal Conjugate Vacci ne, 20-valent ([id number]) 08/04/2023 Seasonal Influenza, PF, 6 M & [...] Telephone Encounter - Carmelo Blake RPh - 11/28/2023 12:02 PM EDT Auth approved. Spoke with patient. * Telephone Encounter - Carmelo Blake RP - 11/26/2023 8:30 AM EDT Auth approved. Patient has lab appointment on 11/27. Will await labs * Telephone Encounter - Carmelo Blake [facility] - 11/24/2023 10:06 AM EDT Gastro Pre-Cert Request Specialty Medication: Yes. Medication/Disease State Information: Medication: Upadacitinib (Rinvoq) Initiation: CD - 45mg daily for 12 weeks, them maintenance based on response Diagnosis (including ICD-10): Crohn's disease K50.90. Specialty medication - route to [id number]. Referral to pharmacist for: co-management. Office Information: Prescriber: Dr. Scott Last office visit: 05/23/23 Last colonoscopy/imagin04/17/23 Impression: - The examined portion of the ileum was normal. Biopsied. - The ascending colon is normal. Biopsied. - The descending colon is normal. Biopsied. - Friable (with contact bleeding) and granular mucosa in the rectum. Biopsied. - Three 4 to 7 mm polyps in the transverse colon, removed with a cold snare. Resected and retrieved. - The examination was otherwise normal on direct and retroflexion views. Recommendation: - Discharge patient to home (with escort). - Await pathology results. - Will likely need uptitration of medications to include biologic for likely Crohn's disease. - Return to my office at appointment to be scheduled. Additional information: Patient was started on Humira but noted little improvement. Recent labs show an undetectable Humiradrug level and high number of antibodies. A switch in biologic is indicated. Required Screening Information: Vaccination(s): Plan in place for CDC/ACIP vaccination guidelines using Health Maintenance Topics, Best Practice Alerts, and Anticipatory Management Reports within EHR TB Testing: Quantiferon Negative in 2022 Hepatitis B Screenings: Hep B Panel Negative No active, severe, and/or uncontrolled infection documented in this encounter Plan of Treatment Upcoming Encounters Date Type Department Care Team (Late st Contact Info) Description 02/03/2024 1:00 PM EDT Office Visit [facility] [address] [facility] [phone] December, Garo Vuong MD [address] [place] [facility] [place] [address] Scheduled Procedures Name Priority Associated Diagnoses Date/Ti [...] filedocumented as of this encounter Care Teams Maitre D Relationship Specialty Start Date End Date December, Garo Vuong MD [address] [place] [facility] [place] [address] PCP - General Family Medicine 08/04/23 documented as of this encounter
--- OUTSIDE RECORDS SUMMARY | 2024-02-19 16:55 | External Medical Summary | Summary of Care ---
Author Name Unknown Organization [facility] Address [address] [place] [address] Phone [phone] Care Team Providers Care Forensic Materials Engineer Name Role Phone Garo Aponte MD Primary Care Provider [phone] Reason for Visit * Reason Comments Dosage Adjustment Via Phone (anticoag Cl inic) Encounter Details Date Type Department Care Team (Late st Contact Info) Description 11/28/2023 11:00 AM EDT Telemedicine Gastroenterology, [place] [address] [place], [place] [phone] [place], Pharmacist Gastro [address] [place], [place] [phone] Crohn's disease with fistula, unspecified gastrointestinal tract [...] mRNA, LNP-s, No Pre serve, 2-Dose Series (Nuiku) 07/11/2021,2020,11/01/2020 DTP Vaccine 10/09/1992, 0,01/23/1989,1987,03/12/1988 H1N1 2009 Influenza, IM 06/28/2009,06/27/2009 Haemophilius B (HIB), unspecified 05/13/1990 Hepatitis B Vaccine 05/20/2000,02/07/1999,1995 MMR - Measles/Mumps/Rubella Vaccine 10/09/1992,0 04/16/1989 OPV - Polio Virus Vaccine (Oral) 993,05/13/1990,05/23/1988,1987 PPD 09/14/2015,09/29/2009 Pneumococcal Conjugate Vacci ne, 20-valent ([id number]) 08/04/2023 Seasonal Influenza, PF, 6 M & [...] this encounter Progress Notes * Lisette Blake, [facility] - 11/28/2023 11:17 AM EDT After connecting [...] become , and any other medications (including thzv-ezk-ipvdovq medications or alternative therapies) they may be [...] Description 02/03/2024 1:00 PM EDT Office Visit [facility] [address] [facility] [phone] December, Garo Vu[facility] [address] [facility] [place] [address] Scheduled Procedures Name Priority Associated Diagnoses Date/Ti [...] Primary documented in this encounter Care Teams Forensic Materials Engineer Relationship Specialty Start Date End Date December, Garo Vuong MD [address] [place] [address] PCP - General Family Medicine 08/04/23 documented as of this encounter
--- OUTSIDE RECORDS SUMMARY | 2024-02-19 16:55 | External Medical Summary ---
Author Name Unknown Address Unknown Organization [id number]:LAB[facility] [address] [place] [address] Laboratory Report Ordering Provider Test Date Status TRAE KNOX 11/26/2023 14:13:59 Final Observation Date Value Abnormality Reference (Units ) Status WBC, Total 11/26/2023 14:13:59 11.16 Above high normal 4 .00-10.80 (K/uL) Final RBC 11/26/2023 14:13:59 5.42 4.50-5.25 (M/uL) Final Hemoglobin 11/26/2023 14:13:59 16.6 14.0-16.8 (g/dL) Final HCT 11/26/2023 14:13:59 47.8 40.0-48.4 (%) Final MCV 11/26/2023 14:13:59 88.2 82.0-99.5 (fL) Final MCH 11/26/2023 14:13:59 30.6 27.0-34.0 (pg) Final MCHC 11/26/2023 14:13:59 34.7 32.0-36.0 (g/dL) Final RDW 11/26/2023 14:13:59 12.8 11.5-15.5 (%) Final Platelets 11/26/2023 14:13:59 229 140-400 (K /uL) Final MPV 11/26/2023 14:13:59 10.0 6.6-11.1 ( fL) Final Performing Location [facility] [place] [address]
--- OUTSIDE RECORDS SUMMARY | 2024-02-19 16:55 | External Medical Summary ---
Author Name Unknown Address Unknown Organization K01:[facility]ORY [facility] [place] - [address] [facility] [address] Laboratory Report Ordering Provider Test Date Status TRAE KNOX 11/26/2023 14:13:59 Final Observation Date Value Abnormality Reference (Units ) Status Triglyceride 11/26/2023 14:13:59 71 <=174 ( mg/dL) Final Triglyceride Reference Range s (mg/dL):
<150 Acceptable
150-174 Borderline high
175-499 High
>=500 Very high Cholesterol 11/26/2023 14:13:59 133 <200 (mg /dL) Final Total Cholesterol Reference Ranges (mg/dL):
<200 Desirable
200-239 Borderline high
>=240 High HDL 11/26/2023 14:13:59 42 >39 (mg/dL ) Final HDL Cholesterol Reference Ra nges (mg/dL):
>=60 High (Desirable)
<50 Low (Undesirable) For Females
<40 Low (Undesirable) For Males NON-HDL CHOLESTEROL 11/26/2023 14:13:59 91 <=159 (mg/dL) Final Non-HDL Cholesterol Referenc e Range (mg/dL):
<100 Target level for high risk ASCVD patient
<130 Optimal for general population
130-159 Near optimal for general population
160-189 Borderline High
190-219 High
>=220 Very High LDL, (calculated) 11/26/2023 14:13:59 77 <= 129 (mg/dL) Final LDL Cholesterol Reference Ra nges (mg/dL):
<70 Target level for high risk ASCVD patient
<100 Optimal for general population
100-129 Near optimal for general population
130-159 Borderline high
160-189 High
>=190 Very high Performing Location LABORATORY [facility] [place] - [address] [place] [id number]
--- OUTSIDE RECORDS SUMMARY | 2024-02-19 16:55 | External Medical Summary | Summary of Care ---
Author Name Unknown Organization [facility] Address [address] [place] [address] Phone [phone] Care Team Providers Care Thermal Cutting Machine Operator Name Role Phone Garo Aponte MD Primary Care Provider [phone] Reason for Visit * Reason Onset Date Comments Test Results 11/13/2023 Encounter Details Date Type Department Care Team (Late st Contact Info) Description 11/13/2023 Telephone Gastroenterology, [facility] [address] [place] [address] Gucci Scott MD [address] [place] [address] Test Results Allergies Active Allergy Reactions Criticality [...] PPD 09/14/2015,09/29/2009 Pneumococcal Conjugate Vacci ne, 20-valent ([id number]) 08/04/2023 Seasonal Influenza, PF, 6 M & [...] encounter Miscellaneous Notes * Telephone Encounter - Tawana Wei [facility] - 11/26/2023 3:48 PM EDT Rinvoq PA requested by Carmelo on 11/24/23. * Telephone Encounter - Gucci Scott MD - 11/18/2023 7:13 PM EDT Rinvoq is fine, thx Gucci Scott MD * Telephone Encounter - Carmelo Blake [facility] - 11/17/2023 11:44 AM EDT Spoke with the patient and discussed benefits/risks of Stelara, Skyrizi, Rinvoq, and Infliximab. I also reviewed the Humira drug level lab. Patient wishes to proceed with Rinvoq. I placed fasting labs for patient to obtain (CBC,CMP, lipid panel). Dr. Scott - okay to proceed with Rinvoq? * Telephone Encounter - Kaila Gibson RN - 11/13/2023 8:31 AM EDT ----- [...] Description 11/28/2023 7:40 AM EDT Laboratory Laboratory, [facility] [address] [facility] [place] [phone] [facility] 132 [facility] [place] [address] 02/03/2024 1:00 PM EDT Office Visit [facility] [address] [place] [address] DecemberGaro MD [address], [place] [phone] Pending Results Name Type Priority Associated Diagnoses Date /Time LIPID PANEL WITH DIRECT LDL IF TG IS HIGH Lab Routine Crohn's disease with fistula, unspecified gastrointestinal tract location (HCC) 11/26/2023 2:13 PM EDT Scheduled Orders Name Type Priority Associated Diagnoses Orde r Schedule LIPID PANEL WITH DIRECT LDL IF TG IS HIGH Lab Routine Crohn's disease with fistula, unspecified gastrointestinal tract location (HCC) Expected: 11/17/2023, Expires: 11/16/2024 Scheduled Procedures Name Priority Associated Diagnoses Date/Ti [...] filedocumented as of this encounter Results * (ABNORMAL) COMPREHENSIVE METABOLIC PANEL (11/26/2023 2:13 [...] EDT 11/26/2023 2:13 PM EDT Carmelo Blake [facility] LAB BLOOD [facility] [place] [facility] [facility] [place] [address] documented in this encounter Visit Diagnoses Diagnosis Crohn's disease with fistula, unspecified gastrointestinal tract location (HCC)- Primary documented in this encounter Care Teams Thermal Cutting Machine Operator Relationship Specialty Start Date End Date December, Garo [facility] [address] [facility] [address] PCP - General Family Medicine 08/04/23 documented as of this encounter
--- OUTSIDE RECORDS SUMMARY | 2024-02-19 16:56 | External Medical Summary | Summary of Care ---
Author Name Unknown Organization [facility] Address [address] [place] [address] Phone [phone] Care Team Providers Care Database Security Administrator Name Role Phone Garo Aponte MD Primary Care Provider [phone] Reason for Visit * Reason Onset Date Comments Test Results 11/13/2023 Encounter Details Date Type Department Care Team (Late st Contact Info) Description 11/13/2023 Telephone Gastroenterology, [facility] [address] [employer] [address] [place] [address] Gucci Scott MD [address] [employer] [place] [address] Test Results Allergies Active Allergy Reactions Criticality Noted Date Comments Diphenoxylate-Atropi ne 05/23/2023 Other Reaction(s): Not available Lomotil Other (Please comment) High 09/29/2009 Lose of sight documented as of this encounter (statuses as of 11/17/2023) Medications Medication Sig Dispensed Refills Start Date [...] 2 weeks. 24 Suppository 1 03/18/2022 Active Additional Information Patient not taking.Reported on 08/04/2023 Descovy 200-25 MG Oral Tablet Take 1 [...] as of this encounter (statuses as of 11/17/2023) Active Problems Problem Noted Date Diagnosed Date PSC (primary sclerosing cholangitis) 10/07/2023 Crohn's disease with fistula 08/04/2023 Ulcerative (chronic) pancolitis with other compl ication 10/11/2021 Performance anxiety 08/02/2014 GERD (gastroesophageal reflux disease) 3 Ulcerative colitis 07/11/2009 ADVANCE DIRECTIVE INFORMATION 11/18/2006 Overview: No, Advance Directive brochure given to patient. documented as of this encounter (statuses as of 11/17/2023) Resolved Problems Problem Noted Date Diagnosed Date Resolved Date Ulcerative colitis 07/28/2015 5 documented as of this encounter (statuses as of 11/17/2023) Immunizations Name Administration Dates Next Due COVID-19 mRNA, LNP-s, No Pre serve, 2-Dose Series (Pfizer) 07/11/2021,2020,11/01/2020 H1N1 2009 Influenza, IM 06/28/2009,06/27/2009 PPD 09/14/2015,09/29/2009 Pneumococcal Conjugate Vacci ne, 20-valent ([id number]) 08/04/2023 Seasonal Influenza, PF, 6 M & [...] Notes * Telephone Encounter - Carmelo Blake, [facility] - 11/17/2023 11:44 AM EDT Spoke with [...] 1:45 PM EDT Office Visit General Surgery, [facility] 132 [facility] [place] [address] Emma Rincon MD [address] [place] [address] 02/03/2024 1:00 PM EDT Office Visit [facility] [address] [place] [phone] DecemberGaro MD [address], [place] [phone] Scheduled Orders Name Type Priority Associated Diagnoses Orde r Schedule CBC WITH WBC DIFFERENTIAL Lab Routine Crohn's disease with fistula, unspecified gastrointestinal tract location (HCC) Expected: 11/17/2023, Expires: 11/16/2024 COMPREHENSIVE METABOLIC PANEL Lab Routine Crohn's disease with fistula, unspecified gastrointestinal tract location (HCC) Expected: 11/17/2023, Expires: 11/16/2024 LIPID PANEL WITH DIRECT LDL IF TG [...] Primary documented in this encounter Care Teams Database Security Administrator Relationship Specialty Start Date End Date December, Garo Vuong MD [address] [facility] [place] [address] PCP - General Family Medicine 08/04/23 documented as of this encounter
--- OUTSIDE RECORDS SUMMARY | 2024-02-19 16:56 | External Medical Summary ---
Author Name Unknown Address Unknown Organization K01:[facility] [place] [address] [place] [address] Laboratory Report Ordering Provider Test Date Status 10/30/2023 08:20:33 Final Observation Date Value Abnormality Reference (Units ) Status Chlamydia trachomatis rRNA [Presence] in Specimen by CAM with probe detection 10/30/2023 08:20:33 Negative Negative Final No Chlamydia trachomatis det ected by community arts centre manager-mediated nucleic acid amplification. Neisseria gonorrhoeae rRNA [ Presence] in Specimen by CAM with probe detection 10/30/2023 08:20:33 Negative Negative Final No Neisseria gonorrhoeae det ected by community arts centre manager-mediated nucleic acid amplification. Performing Location [facility] [place] [address] [place] [address]
--- OUTSIDE RECORDS SUMMARY | 2024-02-19 16:56 | External Medical Summary | Summary of Care ---
Author Name Unknown Organization [facility] Address [address] [place] [address] Phone [phone] Care Team Providers Care Slitter Scorer Cut Off Operator Name Role Phone Garo Aponte MD Primary Care Provider [phone] Reason for Visit * Reason Comments Outpatient Testing Encounter Details Date Type Department Care Team (Latest Contact Info) Description 10/30/2023 8:20 AM EST Laboratory Laboratory, [facility] [address] [place] [address] [facility] [address] [facility] [place] [id number] [employer] Other*[id number]; Crohn's disease with complication, unspecified gastrointestinal tract location (HCC); Screening for STD (sexually transmitted disease) Allergies Active Allergy Reactions Criticality Noted Date Comments Diphenoxylate-Atropi ne 05/23/2023 Other Reaction(s): Not available Lomotil Other (Please comment) High 09/29/2009 Lose of sight documented as of this encounter (statuses as of 10/30/2023) Medications Medication Sig Dispensed Refills Start Date [...] as of this encounter (statuses as of 10/30/2023) Active Problems Problem Noted Date Diagnosed Date PSC (primary sclerosing cholangitis) 10/07/2023 Crohn's disease with fistula 08/04/2023 Ulcerative (chronic) pancolitis with other compl ication 10/11/2021 Performance anxiety 08/02/2014 GERD (gastroesophageal reflux disease) 3 Ulcerative colitis 07/11/2009 ADVANCE DIRECTIVE INFORMATION 11/18/2006 Overview: No, Advance Directive brochure given to patient. documented as of this encounter (statuses as of 10/30/2023) Resolved Problems Problem Noted Date Diagnosed Date Resolved Date Ulcerative colitis 07/28/2015 5 documented as of this encounter (statuses as of 10/30/2023) Immunizations Name Administration Dates Next Due COVID-19 mRNA, LNP-s, No Pre serve, 2-Dose Series ([employer]) 07/11/2021,2020,11/01/2020 DTP Vaccine 10/09/1992, 0,01/23/1989,1987,03/12/1988 H1N1 2009 Influenza, IM 06/28/2009,06/27/2009 Haemophilius B (HIB), unspecified 05/13/1990 Hepatitis B Vaccine 05/20/2000,02/07/1999,1995 MMR - Measles/Mumps/Rubella Vaccine 10/09/1992,0 04/16/1989 OPV - Polio Virus Vaccine (Oral) 993,05/13/1990,05/23/1988,1987 PPD 09/14/2015,09/29/2009 Pneumococcal Conjugate Vacci ne, 20-valent ([id number]) 08/04/2023 Seasonal Influenza, PF, 6 M & [...] 1:45 PM EDT Office Visit General Surgery, [facility] [address] [facility] [place] [address] Emma Rincon MD [address] [facility] [address] 02/03/2024 1:00 PM EDT Office Visit [facility] [address] [place] [phone] DecemberGaro MD [address] [place] [address] Pending Results Name Type Priority Associated Diagnoses Date /Time MYCODE SUBSEQUENT ADULT Lab Routine [employer] Other*[id number] 10/30/2023 8:18 AM EST ADALIMUMAB LEVEL AND ANTI-DRUG ANTIBODY Lab Routine Crohn's disease with complication, unspecified gastrointestinal tract location (HCC) 10/30/2023 8:18 AM EST HIV ANTIGEN & ANTIBODY SCREEN W/ CONFIRMATION Lab Routine Screening for STD (sexually transmitted disease) 10/30/2023 8:18 AM EST RPR Lab Routine Screening for STD (sexually transmitted disease) 10/30/2023 8:18 AM EST HEPATITIS B SURFACE ANTIGEN Lab Routine Screening for STD (sexually transmitted disease) 10/30/2023 8:18 AM EST MYCODE SST1 Lab Routine [employer] Other*[id number] 10/30/2023 8:18 AM EST MYCODE SST2 Lab Routine [employer] Other*[id number] 10/30/2023 8:18 AM EST CHLAMYDIA TRACHOMATIS AND NEISSERIA GONORRHOEAE, AMPLIFIED PROBE Lab Routine Screening for STD (sexually transmitted disease) 10/30/2023 8:20 AM EST Scheduled Procedures Name Priority Associated Diagnoses Date/Ti [...] as of this encounter Visit Diagnoses Diagnosis [employer] Other*[id number] Crohn's disease with complication, unspecified gastrointestinal tract location (HCC) Screening for STD (sexually transmitted disease) Screening examination for venereal disease documented in this encounter Care Teams Slitter Scorer Cut Off Operator Relationship Specialty Start Date End Date December, Garo Vuong MD [address] [place] [address] PCP - General Family Medicine 08/04/23 documented as of this encounter
--- OUTSIDE RECORDS SUMMARY | 2024-02-19 16:56 | External Medical Summary | Summary of Care ---
Author Name Unknown Organization [facility] Address [address] [place] [address] Phone [phone] Care Team Providers Care Cook Chief Name Role Phone Garo Aponte MD Primary Care Provider [phone] Reason for Visit * Reason Onset Date Comments Test Results 11/13/2023 Encounter Details Date Type Department Care Team (Late st Contact Info) Description 11/13/2023 Telephone Gastroenterology, [facility] [address] [employer] [address] [place] [address] Gucci Scott MD [address] [employer] [place] [address] Test Results Allergies Active Allergy Reactions Criticality Noted Date Comments Diphenoxylate-Atropi ne 05/23/2023 Other Reaction(s): Not available Lomotil Other (Please comment) High 09/29/2009 Lose of sight documented as of this encounter (statuses as of 11/18/2023) Medications Medication Sig Dispensed Refills Start Date [...] as of this encounter (statuses as of 11/18/2023) Active Problems Problem Noted Date Diagnosed Date PSC (primary sclerosing cholangitis) 10/07/2023 Crohn's disease with fistula 08/04/2023 Ulcerative (chronic) pancolitis with other compl ication 10/11/2021 Performance anxiety 08/02/2014 GERD (gastroesophageal reflux disease) 3 Ulcerative colitis 07/11/2009 ADVANCE DIRECTIVE INFORMATION 11/18/2006 Overview: No, Advance Directive brochure given to patient. documented as of this encounter (statuses as of 11/18/2023) Resolved Problems Problem Noted Date Diagnosed Date Resolved Date Ulcerative colitis 07/28/2015 5 documented as of this encounter (statuses as of 11/18/2023) Immunizations Name Administration Dates Next Due COVID-19 mRNA, LNP-s, No Pre serve, 2-Dose Series ([employer]) 07/11/2021,2020,11/01/2020 DTP Vaccine 10/09/1992, 0,01/23/1989,1987,03/12/1988 H1N1 2009 Influenza, IM 06/28/2009,06/27/2009 Haemophilius B (HIB), unspecified 05/13/1990 Hepatitis B Vaccine 05/20/2000,02/07/1999,1995 MMR - Measles/Mumps/Rubella Vaccine 10/09/1992,0 04/16/1989 OPV - Polio Virus Vaccine (Oral) 993,05/13/1990,05/23/1988,1987 PPD 09/14/2015,09/29/2009 Pneumococcal Conjugate Vacci ne, 20-valent ([id number]) 08/04/2023 Seasonal Influenza, PF, 6 M & [...] MD * Telephone Encounter - Carmelo Blake [facility] - 11/17/2023 11:44 AM EDT Spoke [...] 1:45 PM EDT Office Visit General Surgery, [facility] [address] [facility] [place] [address] Emma Rincon MD [address] [facility] [place] [address] 02/03/2024 1:00 PM EDT Office Visit [facility] [address] [place] [address] December, Garo Vuong MD [address] [place] [address] Scheduled Orders Name Type Priority Associated Diagnoses [...] Primary documented in this encounter Care Teams Cook Chief Relationship Specialty Start Date End Date December, Garo Vuong MD [address] [place] [address] PCP - General Family Medicine 08/04/23 documented as of this encounter
--- OUTSIDE RECORDS SUMMARY | 2024-02-19 16:56 | External Medical Summary | Summary of Care ---
Author Name Unknown Organization [facility] Address [address] [place] [address] Phone [phone] Care Team Providers Care Headline Writer Name Role Phone Garo Aponte MD Primary Care Provider [phone] Reason for Visit * Reason Comments Outpatient Testing Encounter Details Date Type Department Care Team (Latest Contact Info) Description 10/30/2023 8:20 AM EST Laboratory Laboratory, [facility] [address] [place] [address] [facility] [address] [facility] [place] [id number] [employer] Other*[id number]; Crohn's disease with complication, unspecified gastrointestinal tract [...] mRNA, LNP-s, No Pre serve, 2-Dose Series ([employer]) 07/11/2021,2020,11/01/2020 DTP Vaccine 10/09/1992, 0,01/23/1989,1987,03/12/1988 H1N1 2009 Influenza, IM 06/28/2009,06/27/2009 Haemophilius B (HIB), unspecified 05/13/1990 Hepatitis B Vaccine 05/20/2000,02/07/1999,1995 MMR - Measles/Mumps/Rubella Vaccine 10/09/1992,0 04/16/1989 OPV - Polio Virus Vaccine (Oral) 993,05/13/1990,05/23/1988,1987 PPD 09/14/2015,09/29/2009 Pneumococcal Conjugate Vacci ne, 20-valent ([id number]) 08/04/2023 Seasonal Influenza, PF, 6 M & [...] 1:45 PM EDT Office Visit General Surgery, [facility] 132 [facility] [place] [address] Emma Rincon MD [address] [facility] [address] 02/03/2024 1:00 PM EDT Office Visit [facility] [address] [place] [address] DecemberGaro MD [address] [place] [address] Pending Results Name Type Priority Associated Diagnoses Date /Time MYCODE SUBSEQUENT ADULT Lab Routine [employer] Other*[id number] 10/30/2023 8:18 AM EST ADALIMUMAB LEVEL AND [...] EST MYCODE SST1 Lab Routine [employer] Other*[id number] 10/30/2023 8:18 AM EST MYCODE SST2 Lab Routine [employer] Other*[id number] 10/30/2023 8:18 AM EST CHLAMYDIA TRACHOMATIS AND [...] this encounter Visit Diagnoses Diagnosis [employer] Other*[id number] Crohn's disease with complication, unspecified gastrointestinal tract location (HCC) Screening for STD (sexually transmitted disease) Screening examination for venereal disease documented in this encounter Care Teams Headline Writer Relationship Specialty Start Date End Date December, Garo Vuong MD [address] [place] [address] PCP - General Family Medicine 08/04/23 documented as of this encounter
--- OUTSIDE RECORDS SUMMARY | 2024-02-19 16:56 | External Medical Summary ---
Author Name Unknown Address Unknown Organization K01:[facility] [place] - [facility] [address] [facility] [address] Laboratory Report Ordering Provider Test Date Status CECIL,10/30/2023 08:18:43 Final Observation Date Value Abnormality Reference (Units ) Status HIV 1+2 Ab+HIV1 p24 Ag [Presence] in Serum or Plasma by Immunoassay 10/30/2023 08:18:43 Negative Negative Final Negative HIV-1/2 antigen and antibody screening tset results usually indicate the absence of HIV-1 and HIV-2 infection. However, such negative results do not rule-out acute HIV infection. If acute HIV-1 infection is highly suspected, it is recommended that a specimen be submitted for detection of HIV-1 RNA. Performing Location LAB[facility] [place] - [address] [facility] [address]
--- OUTSIDE RECORDS SUMMARY | 2024-02-19 16:56 | External Medical Summary ---
Author Name Unknown Address Unknown Organization : Laboratory Report Ordering Provider Test Date Status NAMAN DUMAS 10/30/2023 08:18:43 Final Observation Date Value Abnormality Reference (Units ) Status ADALIMUMAB LEVEL 10/30/2023 08:18:43 <0.8 (mcg/mL) Final ADALIMUMAB AB 10/30/2023 08:18:43 >100 Above high normal <10 (AU) Final COMMENT 10/30/2023 08:18:43 SEE BELOW Final This test was developed and its analytical
performance characteristics have been determined
by [facility]. It has not been cleared or approved by
FDA. This assay has been validated pursuant to the
CLIA regulations and is used for clinical
purposes.
For additional information, please refer to
https://education.[employer]/faq/YDX865
(This link is being provided for
informational/educational purposes only.)
Test performed by [facility]
[id number] [place] [address]

Mainframe Consultant: Maya Mendoza MD,PHD,RANJAN
Test Reported by [facility],
[facility],
[address] [facility], [place], [place]
Ladarius Wood M.D., Ph.D., Director of Laboratories
, CLIA [id number] Performing Location
--- OUTSIDE RECORDS SUMMARY | 2024-02-19 16:56 | External Medical Summary | Summary of Care ---
Author Name Unknown Organization [facility] Address [address] [place] [address] Phone [phone] Care Team Providers Care Commercial Insurance Underwriter Name Role Phone Garo Aponte MD Primary Care Provider [phone] Encounter Details Date Type Department Care Team (Late st Contact Info) Description 11/20/2023 Orders Only PATIENT PORTAL DO NOT DELETE THIS DEPT USED BY [place] [id number] Allergies Active Allergy Reactions Criticality Noted Date Comments Diphenoxylate-Atropi ne 05/23/2023 Other Reaction(s): Not available Lomotil Other (Please comment) High 09/29/2009 Lose of sight documented as of this encounter (statuses as of 11/20/2023) Medications Medication Sig Dispensed Refills Start Date [...] as of this encounter (statuses as of 11/20/2023) Active Problems Problem Noted Date Diagnosed Date PSC (primary sclerosing cholangitis) 10/07/2023 Crohn's disease with fistula 08/04/2023 Ulcerative (chronic) pancolitis with other compl ication 10/11/2021 Performance anxiety 08/02/2014 GERD (gastroesophageal reflux disease) 3 Ulcerative colitis 07/11/2009 ADVANCE DIRECTIVE INFORMATION 11/18/2006 Overview: No, Advance Directive brochure given to patient. documented as of this encounter (statuses as of 11/20/2023) Resolved Problems Problem Noted Date Diagnosed Date Resolved Date Ulcerative colitis 07/28/2015 5 documented as of this encounter (statuses as of 11/20/2023) Immunizations Name Administration Dates Next Due COVID-19 mRNA, LNP-s, No Pre serve, 2-Dose Series ([employer]) 07/11/2021,2020,11/01/2020 H1N1 2009 Influenza, IM 06/28/2009,06/27/2009 PPD 09/14/2015,09/29/2009 Pneumococcal Conjugate Vacci ne, 20-valent ([id number]) 08/04/2023 Seasonal Influenza, PF, 6 M & [...] 1:45 PM EDT Office Visit General Surgery, [facility] [address] [place] [address] Emma Rincon MD [address] [facility] [place] [id number] 02/03/2024 1:00 PM EDT Office Visit [address] [place] [address] December, Garo Vuong MD [address] [place] [address] Scheduled Procedures Name Priority Associated Diagnoses Date/Ti [...] filedocumented as of this encounter Care Teams Commercial Insurance Underwriter Relationship Specialty Start Date End Date December, Garo Vuong MD [address] [place] [address] PCP - General Family Medicine 08/04/23 documented as of this encounter
--- OUTSIDE RECORDS SUMMARY | 2024-02-19 16:56 | External Medical Summary ---
Author Name Unknown Address Unknown Organization K01:[facility] [place] - [facility] [address] [place] [address] Laboratory Report Ordering Provider Test Date Status CECIL,10/30/2023 08:18:43 Final Observation Date Value Abnormality Reference (Units ) Status Reagin Ab [Presence] in Serum by RPR 10/30/2023 08:18:43 Nonreactive Nonreactive Final Performing Location LABOR[facility]ORY [facility] [place] - [address] [place] [address]
--- OUTSIDE RECORDS SUMMARY | 2024-02-19 16:56 | External Medical Summary ---
Author Name Unknown Address Unknown Organization K0G:LABORATORY [place] [facility] - [address] [place] [address] Laboratory Report Ordering Provider Test Date Status TRAE KNOX 11/26/2023 14:13:59 Final Observation Date Value Abnormality Reference (Units ) Status SYNC LEUKOCYTES IN BLOOD BY AUTOMATED COUNT 11/26/2023 14:13:59 11.16 Above high normal 4.00-10.80 (K/uL) Final Segs 11/26/2023 14:13:59 73.4 40.0-75.0 (%) Final Lymphs % 11/26/2023 14:13:59 19.8 18.0-42.0 (%) Final Monos 11/26/2023 14:13:59 6.1 1.0-11.0 (%) Final Eosinophils 11/26/2023 14:13:59 0.5 0.0-6.0 (%) Final Basos 11/26/2023 14:13:59 0.2 0.0-2.0 (%) Final Absolute Segs 11/26/2023 14:13:59 8.19 Above high normal 1.80-7.70 (K/uL) Final Lymphs, absolute 11/26/2023 14:13:59 2.21 1.00-4.80 (K/ul) Final Monos, Abs 11/26/2023 14:13:59 0.68 0.00-1.10 (K/uL) Final Eos, Abs 11/26/2023 14:13:59 0.06 0.00-0.70 (K/uL) Final Basos, Abs 11/26/2023 14:13:59 0.02 0.00-0.20 (K/uL) Final Performing Location LABORATORY [place] [facility] 0 - [address] [place] [address]
--- OUTSIDE RECORDS SUMMARY | 2024-02-19 16:56 | External Medical Summary | Summary of Care ---
Author Name Unknown Organization [facility] Address [address] [place] [address] Phone [phone] Care Team Providers Care Senior Naval Parachutist Name Role Phone Garo Aponte MD Primary Care Provider [phone] Reason for Visit * Reason Comments eRx-Medication Refill Encounter Details Date Type Department Care Team (Late st Contact Info) Description [facility] [address] [place], [place] [id number] Gucci Scott MD [address] [place] [address] Ulcerative (chronic) pancolitis with other complication (HCC) Allergies Active Allergy Reactions Criticality Noted [...] PPD 09/14/2015,09/29/2009 Pneumococcal Conjugate Vacci ne, 20-valent ([id number]) 08/04/2023 Seasonal Influenza, PF, 6 M & [...] Miscellaneous Notes * Telephone Encounter - Lisette Blake, [facility] - 11/17/2023 11:37 AM EDT Refused Prescriptions: Disp Refills Humira (2 Pen) 40 MG/0.8ML Subcutaneous Pe*2 Each 5 Sig: INJECT THE CONTENTS OF 1 PEN (40 MG) UNDER THE SKIN EVERY 2 WEEKS STARTING ON DAY 29Refused By: LISETTE BLAKE for Refusal: Course of treatment complete * Telephone Encounter - Lisette Blake [facility] - 11/17/2023 11:36 AM EDT Spoke with patient. He has 2 pens on hand and will be switching therapy in the near future * Telephone Encounter - Lisette Blake [facility] - 11/17/2023 10:07 AM EDT Pending Prescriptions: Disp Refills Humira (2 Pen) 40 MG/0.8ML Subcutaneous Pe*2 Each 5 Sig: INJECTTHE CONTENTS OF 1 PEN (40 MG) UNDER THE SKIN EVERY 2 WEEKS STARTING ON DAY 29 documented in this encounter Plan of Treatment Upcoming Encounters Date Type Department Care Team (Late st Contact Info) Description 11/26/2023 1:45 PM EDT Office Visit General Surgery, [facility] [address] [facility] [place] [address] Emma Rincon MD [address] [facility] [address] 02/03/2024 1:00 PM EDT [address] [address] December, Garo Vuong MD [address] [place] [facility] [place] [address] Scheduled Procedures Name Priority Associated Diagnoses Date/Ti [...] as of this encounter Visit Diagnoses Diagnosis Ulcerative (chronic) pancolitis with other complication (HCC) documented in this encounter Care Teams Senior Naval Parachutist Relationship Specialty Start Date End Date December, Garo Vuong MD [address] [place] [address] PCP - General Family Medicine 08/04/23 documented as of this encounter
--- OUTSIDE RECORDS SUMMARY | 2024-02-19 16:57 | External Medical Summary | Summary of Care ---
Author Name Unknown Organization [facility] Address [address] [place] [address] Phone [phone] Care Team Providers Care Inventory And Pricing Associate Name Role Phone Garo Aponte MD Primary Care Provider [phone] Reason for Visit * Reason Onset Date Comments Follow Up 09/02/2023 Encounter Details Date Type Department Care Team (Late st Contact Info) Description 09/02/2023 Telephone Gastroenterology, [facility] [address] [email or web address] [address] [place] [address] Gucci Scott MD [address] [place] [address] Follow Up Allergies Active Allergy Reactions Criticality Noted Date Comments Diphenoxylate-Atropi ne 05/23/2023 Other Reaction(s): Not available Lomotil Other (Please comment) High 09/29/2009 Lose of sight documented as of this encounter (statuses as of 09/10/2023) Medications Medication Sig Dispensed Refills Start Date [...] mouth in the morning. 0 12/23/2022 Active Finasteride 1 MG Oral TabletIndications: Male pattern baldness Take 1 Tablet by mouth in the morning. 90 Tablet 3 12/27/2022 Active Humira Pen 40 MG/0.8ML Subcutaneous Pen-injector [...] (performance anxiety). 30 Tablet 2 08/04/2023 Active documented as of this encounter (statuses as of 09/10/2023) Active Problems Problem Noted Date Diagnosed Date Crohn's disease with fistula 08/04/2023 Ulcerative (chronic) pancolitis with other compl ication 10/11/2021 Performance anxiety 08/02/2014 GERD (gastroesophageal reflux disease) 3 Ulcerative colitis 07/11/2009 ADVANCE DIRECTIVE INFORMATION 11/18/2006 Overview: No, Advance Directive brochure given to patient. documented as of this encounter (statuses as of 09/10/2023) Resolved Problems Problem Noted Date Diagnosed Date Resolved Date Ulcerative colitis 07/28/2015 5 documented as of this encounter (statuses as of 09/10/2023) Immunizations Name Administration Dates Next Due COVID-19 mRNA, LNP-s, No Pre serve, 2-Dose Series (Pfizer) 07/11/2021,2020,11/01/2020 DTP Vaccine 10/09/1992, 0,01/23/1989,1987,03/12/1988 H1N1 2009 Influenza, IM 06/28/2009,06/27/2009 Haemophilius B (HIB), unspecified 05/13/1990 Hepatitis B Vaccine 05/20/2000,02/07/1999,1995 MMR - Measles/Mumps/Rubella Vaccine 10/09/1992,0 04/16/1989 OPV - Polio Virus Vaccine (Oral) 993,05/13/1990,05/23/1988,1987 PPD 09/14/2015,09/29/2009 Pneumococcal Conjugate Vacci ne, 20-valent ([id number]) 08/04/2023 Seasonal Influenza, PF, 6 M & [...] encounter Miscellaneous Notes * Telephone Encounter - Katy Murguia LPN - 09/10/2023 2:16 PM EST Pt called and made aware of the msg below from Dr scott, pt is set up to see colorectal, pt did pickle solution maker antibiotics. No further questions or concerns at this time, he will keep us updated on how he is doing * Telephone Encounter - Gucci Scott MD - 09/08/2023 4:30 PM EST Patient called and having fever, drainage. Will Rx Abx CT scan to ensure no signs of abscess now. Will need colorectal f/u * Telephone Encounter - Carmelo Blake RPh - 09/02/2023 8:33 AM EST Spoke with patient after receiving reminder he may be changing insurances this year. Patient reports insurance is staying the same - no further action is needed at this time in regards to an auth. Dr. Scott - patient has been taking Humira for about 3 months. GI symptoms remain under control butpatient reports there has been no improvement in the open fistula. He had to cancel his general surgery follow-up last month and I highly recommended he re-schedule this. Routed as FYI or if further advice is indicated. Carmelo Blake RPh Clinical Pharmacist, Gastroenterology 09/02/2023,8:35 AM documented in this encounter Plan of Treatment Upcoming Encounters Date Type Department Care Team (Late st Contact Info) Description 09/15/2023 9:45 AM EST Imaging Radiology [address], [address] [place] [address] 11/26/2023 1:45 PM EDT Office Visit General Surgery, [facility] 132 [place] [address] Emma Rincon MD [address] [place] [address] 12/16/2023 8:40 AM EDT Office Visit Gastroenterology, [facility] 132 [place] [address] Gucci Scott MD 132 [place] [address] 02/03/2024 1:00 PM EDT Office Visit [facility] [address] [place] [phone] December, Garo Vuong MD [address] [place], [place] [phone] Scheduled Procedures Name Priority Associated Diagnoses Date/Ti [...] filedocumented as of this encounter Care Teams Inventory And Pricing Associate Relationship Specialty Start Date End Date December, Garo Vuong MD [address] [place] [address] PCP - General Family Medicine 08/04/23 documented as of this encounter
--- OUTSIDE RECORDS SUMMARY | 2024-02-19 16:57 | External Medical Summary | Summary of Care ---
Author Name Unknown Organization [facility] Address [address] [place] [address] Phone [phone] Care Team Providers Care Tobacco Packer Name Role Phone Garo Benitez MD Primary Care Provider [phone] Reason for Visit * Reason Onset Date Comments Medication Refill 10/28/2023 Encounter Details Date Type Department Care Team (Late st Contact Info) Description 10/28/2023 Refill [facility] [address] [place] [address] Garo Benitez MD [address] [place] [address] Male pattern baldness Allergies Active Allergy Reactions Criticality Noted Date Comments Diphenoxylate-Atropi ne 05/23/2023 Other Reaction(s): Not available Lomotil Other (Please comment) High 09/29/2009 Lose of sight documented as of this encounter (statuses as of 10/29/2023) Medications Medication Sig Dispensed Refills Start Date [...] the morning. 90 Tablet 3 10/29/2023 Active Finasteride 1 MG Oral TabletIndications :Male pattern baldness Take 1 Tablet by mouth in the morning. 90 Tablet 3 12/27/2022 10/28/19 24 Discontinu ed(Refill) documented as of this encounter (statuses as of 10/29/2023) Active Problems Problem Noted Date Diagnosed Date PSC (primary sclerosing cholangitis) 10/07/2023 Crohn's disease with fistula 08/04/2023 Ulcerative (chronic) pancolitis with other compl ication 10/11/2021 Performance anxiety 08/02/2014 GERD (gastroesophageal reflux disease) 3 Ulcerative colitis 07/11/2009 ADVANCE DIRECTIVE INFORMATION 11/18/2006 Overview: No, Advance Directive brochure given to patient. documented as of this encounter (statuses as of 10/29/2023) Resolved Problems Problem Noted Date Diagnosed Date Resolved Date Ulcerative colitis 07/28/2015 5 documented as of this encounter (statuses as of 10/29/2023) Immunizations Name Administration Dates Next Due COVID-19 mRNA, LNP-s, No Pre serve, 2-Dose Series (Pfizer) 07/11/2021,2020,11/01/2020 H1N1 2009 Influenza, IM 06/28/2009,06/27/2009 PPD 09/14/2015,09/29/2009 Pneumococcal Conjugate Vacci ne, 20-valent ([id number]) 08/04/2023 Seasonal Influenza, PF, 6 M & [...] encounter Miscellaneous Notes * Telephone Encounter - Ismael Nance [facility] - 10/29/2023 10:06 AM ESTSigned Prescriptions: Disp Refills Finasteride 1 MG Oral Tablet 90 Tab*3 Sig: Take 1 Tablet by mouth in the morning.Authorizing Provider: GARO BENITEZOrdering User: ISMAEL NANCE documented in this encounter Plan of Treatment Upcoming Encounters Date Type Department Care Team (Late st Contact Info) Description 11/26/2023 1:45 PM EDT Office Visit General Surgery, [facility] [address] [place] [address] Emma Rincon MD [address], [place] [phone] 02/03/2024 1:00 PM EDT Office Visit [facility] [address] [place] [address] Garo Benitez MD [address] [place], [place] [phone] Scheduled Procedures Name Priority Associated Diagnoses Date/Ti [...] as of this encounter Visit Diagnoses Diagnosis Male pattern baldness Other alopecia documented in this encounter Care Teams Tobacco Packer Relationship Specialty Start Date End Date December, Garo Vuong MD [address] [place] [address] PCP - General Family Medicine 08/04/23 documented as of this encounter
--- OUTSIDE RECORDS SUMMARY | 2024-02-19 16:57 | External Medical Summary | Summary of Care ---
Author Name Unknown Organization [facility] Address [address] [place] [address] Phone [phone] Care Team Providers Care Cabin Furnishings Installer Name Role Phone Garo Aponte MD Primary Care Provider [phone] Encounter Details Date Type Department Care Team (Late st Contact Info) Description 10/23/2023 Telephone Access Center, [place] [address] [facility] *DO NOT REMOVE THIS DEPARTMENT* [place], [place] [phone] Services, Scheduling [address] [place] [address] Allergies Active Allergy Reactions Criticality Noted Date Comments Diphenoxylate-Atropi ne 05/23/2023 Other Reaction(s): Not available Lomotil Other (Please comment) High 09/29/2009 Lose of sight documented as of this encounter (statuses as of 10/23/2023) Medications Medication Sig Dispensed Refills Start Date [...] as of this encounter (statuses as of 10/23/2023) Active Problems Problem Noted Date Diagnosed Date PSC (primary sclerosing cholangitis) 10/07/2023 Crohn's disease with fistula 08/04/2023 Ulcerative (chronic) pancolitis with other compl ication 10/11/2021 Performance anxiety 08/02/2014 GERD (gastroesophageal reflux disease) 3 Ulcerative colitis 07/11/2009 ADVANCE DIRECTIVE INFORMATION 11/18/2006 Overview: No, Advance Directive brochure given to patient. documented as of this encounter (statuses as of 10/23/2023) Resolved Problems Problem Noted Date Diagnosed Date Resolved Date Ulcerative colitis 07/28/2015 5 documented as of this encounter (statuses as of 10/23/2023) Immunizations Name Administration Dates Next Due COVID-19 mRNA, LNP-s, No Pre serve, 2-Dose Series ([employer]) 07/11/2021,2020,11/01/2020 H1N1 2009 Influenza, IM 06/28/2009,06/27/2009 PPD 09/14/2015,09/29/2009 Pneumococcal Conjugate Vacci ne, 20-valent ([id number]) 08/04/2023 Seasonal Influenza, PF, 6 M & [...] encounter Miscellaneous Notes * Telephone Encounter - Sun Koehler OSA - 10/23/2023 12:28 PM EST Called patient to make aware appt cancelled on 12/15 and with Gucci Scott patient will need to be rescheduled. Thank you documented in this encounter Plan of Treatment Upcoming Encounters Date Type Department Care Team (Late st Contact Info) Description 11/26/2023 1:45 PM EDT Office Visit General Surgery, [facility] [address] [place] [address] Emma Rincon MD [address] [facility] [place] [address] 02/03/2024 1:00 PM EDT Office Visit [facility] [address] [place] [phone] December, Garo Vuong MD [address] [place], [place] [phone] Scheduled Procedures Name Priority Associated Diagnoses Date/Ti [...] filedocumented as of this encounter Care Teams Cabin Furnishings Installer Relationship Specialty Start Date End Date December, Garo Vuong MD [address] [place], [place] [phone] PCP - General Family Medicine 08/04/23 documented as of this encounter
--- OUTSIDE RECORDS SUMMARY | 2024-02-19 16:57 | External Medical Summary | Summary of Care ---
Author Name Unknown Organization [facility] Address [address] [place] [address] Phone [phone] Care Team Providers Care Morphologist Name Role Phone Garo Aponte MD Primary Care Provider [phone] Reason for Visit * Reason Onset Date Comments Follow Up 09/02/2023 Encounter Details Date Type Department Care Team (Late st Contact Info) Description 09/02/2023 Telephone Gastroenterology, [facility] [address] [employer] [address] [place] [address] Gucci Scott MD [address] [place] [address] Follow Up Allergies Active Allergy Reactions Criticality Noted Date Comments Diphenoxylate-Atropi ne 05/23/2023 Other Reaction(s): Not available Lomotil Other (Please comment) High 09/29/2009 Lose of sight documented as of this encounter (statuses as of 09/08/2023) Medications Medication Sig Dispensed Refills Start Date [...] as of this encounter (statuses as of 09/08/2023) Active Problems Problem Noted Date Diagnosed Date Crohn's disease with fistula 08/04/2023 Ulcerative (chronic) pancolitis with other compl ication 10/11/2021 Performance anxiety 08/02/2014 GERD (gastroesophageal reflux disease) 3 Ulcerative colitis 07/11/2009 ADVANCE DIRECTIVE INFORMATION 11/18/2006 Overview: No, Advance Directive brochure given to patient. documented as of this encounter (statuses as of 09/08/2023) Resolved Problems Problem Noted Date Diagnosed Date Resolved Date Ulcerative colitis 07/28/2015 5 documented as of this encounter (statuses as of 09/08/2023) Immunizations Name Administration Dates Next Due COVID-19 mRNA, LNP-s, No Pre serve, 2-Dose Series (Pfizer) 07/11/2021,2020,11/01/2020 DTP Vaccine 10/09/1992, 0,01/23/1989,1987,03/12/1988 H1N1 2009 Influenza, IM 06/28/2009,06/27/2009 Haemophilius B (HIB), unspecified 05/13/1990 Hepatitis B Vaccine 05/20/2000,02/07/1999,1995 MMR - Measles/Mumps/Rubella Vaccine 10/09/1992,0 04/16/1989 OPV - Polio Virus Vaccine (Oral) 993,05/13/1990,05/23/1988,1987 PPD 09/14/2015,09/29/2009 Pneumococcal Conjugate Vacci ne, 20-valent ([id number]) 08/04/2023 Seasonal Influenza, PF, 6 M & [...] Notes * Telephone Encounter - Carmelo Blake [facility] - 09/02/2023 8:33 AM EST Spoke with [...] if further advice is indicated. Carmelo Blake [facility] Clinical Pharmacist, Gastroenterology 09/02/2023,8:35 AM documented in this encounter Plan of Treatment Upcoming Encounters Date Type Department Care Team (Late st Contact Info) Description 12/16/2023 8:40 AM EDT Office Visit Gastroenterology, [facility] [address] [place] [address] Gucci Scott MD [address] [place] [address] 02/03/2024 1:00 PM EDT Office [facility] [address] [facility] [phone] December, Garo Vuong MD [address] [place] [facility] [place] [address] Scheduled Procedures Name Priority Associated Diagnoses Date/Ti [...] filedocumented as of this encounter Care Teams Morphologist Relationship Specialty Start Date End Date December, Garo Vuong MD [address] [place] [facility] [place] [address] PCP - General Family Medicine 08/04/23 documented as of this encounter
--- OUTSIDE RECORDS SUMMARY | 2024-02-19 16:57 | External Medical Summary ---
Author Name Unknown Address Unknown Organization K01:[facility] [place] - [address] [place] [id number] Laboratory Report Ordering Provider Test Date Status MI HAMILTON 10/30/2023 08:18:43 Final Observation Date Value Abnormality Reference (Units ) Status MYCODE SPECIMEN-SST 10/30/2023 08:18:43 Freezing of extracted DNA, whole blood and/or serum. Final Performing Location [facility] - [address] [place] [address]
--- OUTSIDE RECORDS SUMMARY | 2024-02-19 16:57 | External Medical Summary | Summary of Care ---
Author Name Unknown Organization [facility] Address [address] [place] [address] Phone [phone] Care Team Providers Care Loft Rigger Name Role Phone Garo Aponte MD Primary Care Provider [phone] Encounter Details Date Type Department Care Team (Late st Contact Info) Description 10/20/2023 Telephone Gastroenterology, [facility] [address] [employer] [address] [place] [address] Gucci Scott MD [address] [place] [address] Allergies Active Allergy Reactions Criticality Noted Date Comments Diphenoxylate-Atropi ne 05/23/2023 Other Reaction(s): Not available Lomotil Other (Please comment) High 09/29/2009 Lose of sight documented as of this encounter (statuses as of 10/20/2023) Medications Medication Sig Dispensed Refills Start Date [...] as of this encounter (statuses as of 10/20/2023) Active Problems Problem Noted Date Diagnosed Date PSC (primary sclerosing cholangitis) 10/07/2023 Crohn's disease with fistula 08/04/2023 Ulcerative (chronic) pancolitis with other compl ication 10/11/2021 Performance anxiety 08/02/2014 GERD (gastroesophageal reflux disease) 3 Ulcerative colitis 07/11/2009 ADVANCE DIRECTIVE INFORMATION 11/18/2006 Overview: No, Advance Directive brochure given to patient. documented as of this encounter (statuses as of 10/20/2023) Resolved Problems Problem Noted Date Diagnosed Date Resolved Date Ulcerative colitis 07/28/2015 5 documented as of this encounter (statuses as of 10/20/2023) Immunizations Name Administration Dates Next Due COVID-19 mRNA, LNP-s, No Pre serve, 2-Dose Series (Pfizer) 07/11/2021,2020,11/01/2020 H1N1 2009 Influenza, IM 06/28/2009,06/27/2009 PPD 09/14/2015,09/29/2009 Pneumococcal Conjugate Vacci ne, 20-valent ([id number]) 08/04/2023 Seasonal Influenza, PF, 6 M & [...] 1:45 PM EDT Office Visit General Surgery, [facility] [address] [facility] [place] [address] Emma Rincon MD [address] [facility] [place] [address] 12/16/2023 8:40 AM EDT Office Visit Gastroenterology, [facility] [address] [place] [address] Gucci Scott MD [address] [place] [address] 02/03/2024 1:00 PM EDT Office Visit [facility] [address] [place] [phone] December, Garo Vuong MD [address] [place] [address] Scheduled Orders Name Type Priority Associated Diagnoses Orde r Schedule ADALIMUMAB LEVEL AND ANTI-DRUG ANTIBODY Lab Routine Crohn's disease with complication, unspecified gastrointestinal tract location (HCC) Expected: 10/20/2023, Expires: 10/20/2024 Scheduled Procedures Name Priority Associated Diagnoses Date/Ti [...] encounter Visit Diagnoses Diagnosis Crohn's disease with complication, unspecified gastrointestinal tract location (HCC)- Primary documented in this encounter Care Teams Loft Rigger Relationship Specialty Start Date End Date December, Garo Vuong MD [address] [place] [address] PCP - General Family Medicine 08/04/23 documented as of this encounter
--- OUTSIDE RECORDS SUMMARY | 2024-02-19 16:57 | External Medical Summary | Summary of Care ---
Author Name Unknown Organization [facility] Address [address] [place] [address] Phone [phone] Care Team Providers Care Software Team Leader Name Role Phone Garo Aponte MD Primary Care Provider [phone] Reason for Visit * Reason Comments Acute Encounter Details Date Type Department Care Team (Latest Contact Info) Description 10/07/2023 10:40 AM EST [facility] [address] [place] [address] Garo Aponte MD [address], [place] [id number] Acute non-recurrent frontal sinusitis*; Crohn's disease with fistula, unspecified gastrointestinal tract location (HCC); PSC (primary sclerosing cholangitis); Ulcerative pancolitis with other complication (HCC) Allergies Active Allergy Reactions Criticality Noted Date Comments Diphenoxylate-Atropi ne 05/23/2023 Other Reaction(s): Not available Lomotil Other (Please comment) High 09/29/2009 Lose of sight documented as of this encounter (statuses as of 10/07/2023) Medications Medication Sig Dispensed Refills Start Date [...] (performance anxiety). 30 Tablet 2 08/04/2023 Active Amoxicillin 875 MG Oral TabletIndications: Acute non-recurrent frontal sinusitis Take 1 Tablet by mouth in the morning and 1 Tablet before bedtime. Do all this for 7 days. 14 Tablet 0 10/07/2023 Active documented as of this encounter (statuses as of 10/07/2023) Active Problems Problem Noted Date Diagnosed Date PSC (primary sclerosing cholangitis) 10/07/2023 Crohn's disease with fistula 08/04/2023 Ulcerative (chronic) pancolitis with other compl ication 10/11/2021 Performance anxiety 08/02/2014 GERD (gastroesophageal reflux disease) 3 Ulcerative colitis 07/11/2009 ADVANCE DIRECTIVE INFORMATION 11/18/2006 Overview: No, Advance Directive brochure given to patient. documented as of this encounter (statuses as of 10/07/2023) Resolved Problems Problem Noted Date Diagnosed Date Resolved Date Ulcerative colitis 07/28/2015 5 documented as of this encounter (statuses as of 10/07/2023) Immunizations Name Administration Dates Next Due COVID-19 mRNA, LNP-s, No Pre serve, 2-Dose Series (Pfizer) 07/11/2021,2020,11/01/2020 H1N1 2009 Influenza, IM 06/28/2009,06/27/2009 PPD 09/14/2015,09/29/2009 Pneumococcal Conjugate Vacci ne, 20-valent ([id number]) 08/04/2023 Seasonal Influenza, PF, 6 M & [...] as of this encounter Progress Notes * Garo Aponte MD - 10/07/2023 10:53 AM EST Images from the original note were not included. Assessment and Plan 1. Acute non-recurrent frontal sinusitis One-week of symptoms consistent with maxillary sinusitis. Continue hydration and daje-whr-xqcarnh medications. Add amoxicillin. - Amoxicillin 875 MG Oral Tablet; Take 1 Tablet by mouth in the morning and 1 Tablet before bedtime. Do all this for 7 days. Dispense: 14 Tablet; Refill: 0 2. Crohn's disease with fistula, unspecified gastrointestinal tract location (HCC) Following with General surgery for anal fistula and Gastroenterology for Crohn's/ulcerative pancolitis. Currently on Humira. He continues on balsalazide. 3. PSC (primary sclerosing cholangitis) 4. Ulcerative pancolitis with other complication (HCC) Wrap-Up Follow up as needed. History of Present Illness The patient is a 37 year old male with past medical history of GERD, Crohn's, anxiety who presents via video visit for acute. 37-year-old male who presents with one-week of symptoms. Symptoms are primarily sinus headache and congestion. Pain is currently located behind the left eye in the left maxillary sinus. He denies anyfevers, chills, nausea, vomiting, diarrhea. He has been using DayQuil and NyQuil without significant improvement in symptoms. His appetite is reasonable and he was staying hydrated. Physical Exam There were no vitals filed for this visit. Physical Exam Physical Exam Constitutional: General: He is not in acute distress. Appearance: He is not toxic-appearing. Comments: Exam limited due to virtual visit. Pulmonary: Effort: Pulmonary effort is normal. Neurological: General: No focal deficit present. Mental Status: He is alert. Psychiatric: Mood and Affect: Mood normal. Behavior: Behavior normal. Patient location: HOME. I was in a hospital or clinic location. After connecting through [employer],patient was verified with two unique identifiers. Patient (or authorized legal mill representative) was then informed that this was a Telemedicine visit and being conducted confidentially over secure lines. Methods to assure confidentiality were taken. Patient acknowledged consent and understanding of pr ivacy and security of the Telemedicine visit. The patient agreed to participate. This note has been completed in part utilizing [employer] Speech Voice Recognition Software. Due to technical limitations of the software, grammatical errors, random word insertions, prounoun errors, and incomplete sentences may occur. Any formal questions or concerns about the content, text, or information contained within the body of this dictation should be directly addressed to the provider for clarification. documented in this encounter Plan of Treatment Upcoming Encounters Date Type Department Care Team (Late st Contact Info) Description 10/08/2023 2:45 PM EST Imaging Radiology [facility]st [facility] [address] [place] [address] 11/26/2023 1:45 PM EDT Office Visit General Surgery, [facility] [address] [place] [address] Emma Rincon MD [address] [place] [address] 12/16/2023 8:40 AM EDT Office Visit Gastroenterology, [facility] [address] [place] [address] Gucci Scott MD [address] [place] [address] 02/03/2024 1:00 PM EDT Office Visit [facility] [address] [place] [address] Garo Aponte MD [address] [place] [address] Scheduled Procedures Name Priority Associated Diagnoses Date/Ti [...] as of this encounter Visit Diagnoses Diagnosis Acute non-recurrent frontal sinusitis- Primary Crohn's disease with fistula, unspecified gastrointestinal tract location (HCC) PSC (primary sclerosing cholangitis) Cholangitis Ulcerative pancolitis with other complication (HCC) documented in this encounter Care Teams Software Team Leader Relationship Specialty Start Date End Date December, Garo Vuong MD [address] [place] [address] PCP - General Family Medicine 08/04/23 documented as of this encounter
--- OUTSIDE RECORDS SUMMARY | 2024-02-19 16:57 | External Medical Summary ---
Author Name Unknown Address Unknown Organization K01:[facility] - [address] [place] [id number] Laboratory Report Ordering Provider Test Date Status MI HAMILTON 10/30/2023 08:18:43 Final Observation Date Value Abnormality Reference (Units ) Status MYCODE SPECIMEN-SST 10/30/2023 08:18:43 Freezing of extracted DNA, whole blood and/or serum. Final Performing Location LAB[facility]ATORY [facility] - [address] [place] [address]
--- OUTSIDE RECORDS SUMMARY | 2024-02-19 16:57 | External Medical Summary | Summary of Care ---
Author Name Unknown Organization [facility] Address [address] [place] [address] Phone [phone] Care Team Providers Care Foreign Language Stenographer Name Role Phone Garo Aponte MD Primary Care Provider [phone] Reason for Visit * Reason Onset Date Comments Follow Up 09/02/2023 Encounter Details Date Type Department Care Team (Late st Contact Info) Description 09/02/2023 Telephone Gastroenterology, [facility] [address] [place] [address] Gucci Scott MD [address] [place] [address] Follow Up Allergies Active Allergy Reactions Criticality [...] PPD 09/14/2015,09/29/2009 Pneumococcal Conjugate Vacci ne, 20-valent ([id number]) 08/04/2023 Seasonal Influenza, PF, 6 M & [...] f/u * Telephone Encounter - Carmelo Blake [facility] - 09/02/2023 8:33 AM EST Spoke with [...] if further advice is indicated. Carmelo Blake [facility] Clinical Pharmacist, Gastroenterology 09/02/2023,8:35 AM documented in this encounter Plan of Treatment Upcoming Encounters Date Type Department Care Team (Late st Contact Info) Description 09/15/2023 9:45 AM EST Imaging Radiology [facility] 1st Floor, [address] [address] 11/26/2023 1:45 PM EDT Office Visit General Surgery, [address] [place] [address] Emma Rincon MD [address] [place] [address] 12/16/2023 8:40 AM EDT Office Visit Gastroenterology, [address] [place] [address] Gucci Scott MD [address] [place] [address] 02/03/2024 1:00 PM EDT Office Visit [facility] [address] [place] [address] December, Garo Vuong MD [address] [place] [address] Scheduled Procedures Name Priority Associated Diagnoses Date/Ti [...] filedocumented as of this encounter Care Teams Foreign Language Stenographer Relationship Specialty Start Date End Date December, Garo Vuong MD [address] [place] [address] PCP - General Family Medicine 08/04/23 documented as of this encounter
--- OUTSIDE RECORDS SUMMARY | 2024-02-19 16:58 | External Medical Summary | Summary of Care ---
Author Name Unknown Organization [facility] Address [address] [place] [address] Phone [phone] Care Team Providers Care Ground Crew Supervisor Name Role Phone Garo Aponte MD Primary Care Provider [phone] Reason for Visit * Reason Onset Date Comments Follow Up 09/02/2023 Encounter Details Date Type Department Care Team (Late st Contact Info) Description 09/02/2023 Telephone Gastroenterology, [facility] [address] [place] [address] Gucci Scott MD [address] [place] [address] Follow Up Allergies Active Allergy Reactions Criticality Noted Date Comments Diphenoxylate-Atropi ne 05/23/2023 Other Reaction(s): Not available Lomotil Other (Please comment) High 09/29/2009 Lose of sight documented as of this encounter (statuses as of 09/02/2023) Medications Medication Sig Dispensed Refills Start Date [...] as of this encounter (statuses as of 09/02/2023) Active Problems Problem Noted Date Diagnosed Date Crohn's disease with fistula 08/04/2023 Ulcerative (chronic) pancolitis with other compl ication 10/11/2021 Performance anxiety 08/02/2014 GERD (gastroesophageal reflux disease) 3 Ulcerative colitis 07/11/2009 ADVANCE DIRECTIVE INFORMATION 11/18/2006 Overview: No, Advance Directive brochure given to patient. documented as of this encounter (statuses as of 09/02/2023) Resolved Problems Problem Noted Date Diagnosed Date Resolved Date Ulcerative colitis 07/28/2015 5 documented as of this encounter (statuses as of 09/02/2023) Immunizations Name Administration Dates Next Due COVID-19 mRNA, LNP-s, No Pre serve, 2-Dose Series (Pfizer) 07/11/2021,2020,11/01/2020 H1N1 2009 Influenza, IM 06/28/2009,06/27/2009 PPD 09/14/2015,09/29/2009 Pneumococcal Conjugate Vacci ne, 20-valent ([id number]) 08/04/2023 Seasonal Influenza, PF, 6 M & [...] Miscellaneous Notes * Telephone Encounter - Carmelo lBake, [facility] - 09/02/2023 8:33 AM EST Spoke with [...] further advice is indicated. Carmelo Blake [facility] Clinical Pharmacist, Gastroenterology 09/02/2023,8:35 AM documented in this encounter Plan of Treatment Upcoming Encounters Date Type Department Care Team (Late st Contact Info) Description 12/16/2023 8:40 AM EDT Office Visit Gastroenterology, [facility] [address] [place] [address] Gucci Scott MD [address] [place] [address] 02/03/2024 1:00 PM EDT Office Visit [facility] [address] [place] [facility] [place] [phone] December, Garo Vuong MD [address], [place] [phone] Scheduled Procedures Name Priority Associated Diagnoses Date/Ti [...] filedocumented as of this encounter Care Teams Ground Crew Supervisor Relationship Specialty Start Date End Date December, Garo Vuong MD [address] [place] [address] PCP - General Family Medicine 08/04/23 documented as of this encounter
--- NOTE | 2024-02-19 19:28 | Emergency Department Note ---
ED Visit Note Patient is a 38-year-old male who was found to have a left-sided perianal abscess/fistula with thickening of the rectal wall, perirectal inflammation and a fistulous tract that follows through to the levator musculature. Patient was initially seen and evaluated by Dr. Townsend. Patient was accepted in transfer to [facility]. The hope was that he would be transferred today. We recontacted case here and they note that they will have no bed for him tonight. Discussed case with the hospitalist for further evaluation management and overnight. Discussed with Dr. Garcia and patient was accepted to the hospitalist service overnight. .
--- NOTE | 2024-02-19 20:16 | History & Physical Report ---
Date of Service February 19, 2024 Assessment & Plan (1) Perianal abscess: Plan: hx fistulous Crohn's disease on Rinvoq No sepsis for now primary sclerosing cholangitis GERD stable on PPI [facility] Zosyn Appropriate to hold Rinvoq for now given infection [facility] transfer once bed available. (Patient accepted by Dr. Gutierrez of Colorectal Surgery.) N.p.o. after midnight in anticipation of procedure DVT prophylaxis per Lovenox subcu Full code Text document was generated using [employer] voice recognition software. It may contain grammatical or spelling errors. Kindly contact undersigned for clarification of any documentation item in question. History of Present Illness Chief Complaint: Increased fistula drainage Primary Care Provider: Garo Aponte MD History obtained from patient and records. 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 Increase prudent drainage and perirectal pain noted the last couple of days. Fever of 100 T at home. Scant blood tinged drainage. Patient directed to ER by GI specialist. CT abdomen pelvis showed 1. There is a left-sided perianal abscess/fistula as detailed above which extends from the anterior aspect of the rectum to the inferior gluteal crease. 2. There is rectal wall thickening with mild perirectal infiltration and mildly enlarged perirectal lymph nodes. 3. The fistulous tract extends through the levator musculature. 4. Mild splenomegaly. Ceftriaxone and Flagyl administered at the ER. Patient accepted for transfer by [facility] colorectal surgery pending bed availability. Medical History as above 2022 colonoscopy showed friable granular rectal mucosa, transverse colon polyps Descovy intake for HIV preexposure prophylaxis Surgical History : Humeral fracture surgery Family History : DM, hypertension Personal/Social history : Non-smoker, occasional EtOH intake, accountant tax Allergies Allergy/AdvReac Type Severity Reaction Status Date / Time atropine [From Lomotil] AdvReac Blurry Verified 02/19/24 19:58 Vision diphenoxylate [From Lomotil] AdvReac Blurry Verified 02/19/24 19:58 Vision Anti- dirrheal pill AdvReac lost Uncoded 02/19/24 12:11 periperal vision Home Medications Medication Instructions Recorded Confirmed Type balsalazide 750 mg capsule 1,500 mg PO BID 02/19/24 02/19/24 History emtricitabine 200 mg-tenofovir 1 tab PO DAILY 02/19/24 02/19/24 History alafenamide fumarate 25 mg tablet (Descovy) ferrous sulfate 325 mg (65 mg 325 mg PO DAILY 02/19/24 02/19/24 History iron) tablet (iron) finasteride 1 mg tablet 1 mg PO DAILY 02/19/24 02/19/24 History omeprazole magnesium 20 mg 20 mg PO DAILY 02/19/24 02/19/24 History tablet,delayed release (Prilosec OTC) upadacitinib 45 mg tablet,extended 45 mg PO DAILY 02/19/24 02/19/24 History release 24 hr (Rinvoq) Past Med/Surg History Problem List (Updated 02/20/24 @ 07:32 by Armin Kennedy MD) Perianal abscess Social History Smoking Status: Never smoker Second Hand Exposure: No; Do You Dip or Chew Tobacco: No; Tobacco Cessation Education Requested by Patient: No Hx Alcohol Use: Yes Alcohol type: beer and hard liquor Hx Substance Use: No Preferred Language: Sami Communication Ability: Effective Sock Folder Required: No Beliefs That Will Affect Care: None Current Living Situation: Alone Other Information That Helps Us Care for You: No Feels Safe at Home: Yes Safety Concerns: Feels Safe At This Time Assistive Devices: None Review of Systems Review of Systems: As per HPI, all other systems reviewed and negative Physical Exam Physical Exam: GENERAL: Comfortable, pleasant, no respiratory distress SKIN: Normal color, warm HEENT: Fortine palpebral conjunctivae, no ptosis, dry buccal mucosa NECK : Supple, no tenderness CHEST : CTA, no tenderness HEART : RRR, no obvious murmurs ABDOMEN: Some distention, nontender EXTREMITIES : No LE swelling/tenderness, no other conspicuous deformities noted NEUROLOGIC : Coherent, no facial asymmetry, no other gross focality Results & Data Results & Data Vital Signs (Past 12 Hours) Vital Signs Temp Pulse Pulse Resp BP BP Pulse Ox 02/19/24 20:00 56 L 16 129/80 95 02/19/24 17:36 70 16 131/79 98 02/19/24 16:00 65 14 97 02/19/24 15:30 67 20 98 02/19/24 14:00 67 18 143/74 H 97 02/19/24 13:00 63 22 96 02/19/24 12:00 63 24 133/85 97 02/19/24 11:21 66 16 97 02/19/24 10:46 77 02/19/24 10:01 36.5 C 75 20 144/96 H 97 O2 Del Method 02/19/24 20:00 02/19/24 17:36 Room Air 02/19/24 16:00 Room Air 02/19/24 15:30 Room Air 02/19/24 14:00 Room Air 02/19/24 13:00 Room Air 02/19/24 12:00 Room Air 02/19/24 11:21 02/19/24 10:46 02/19/24 10:01 Room Air Laboratory Results Laboratory Results WBC 9.04 K/ul (4.8-10.8) 02/19/24 10:32 RBC 4.53 M/uL (4.70-6.10) L 02/19/24 10:32 Hgb 14.8 g/dl (14.0-18.0) 02/19/24 10:32 Hct 41.5 % (42.0-52.0) L 02/19/24 10:32 MCV 91.6 fL (80.0-100.0) 02/19/24 10:32 MCH 32.7 pg (25.0-34.0) 02/19/24 10:32 MCHC 35.7 g/dL (32.0-36.0) 02/19/24 10:32 RDW Std Deviation 42.9 fL (36.4-46.3) 02/19/24 10:32 RDW Coeff of Poly 12.9 % (11.5-14.5) 02/19/24 10:32 Plt Count 239 K/uL (130-400) 02/19/24 10:32 MPV 9.7 fL (9.4-12.4) 02/19/24 10:32 Immature Gran % (Auto) 0.4 % 02/19/24 10:32 Neut % (Auto) 63.1 % 02/19/24 10:32 Lymph % (Auto) 27.5 % 02/19/24 10:32 Cowley % (Auto) 8.1 % 02/19/24 10:32 Eos % (Auto) 0.7 % 02/19/24 10:32 Baso % (Auto) 0.2 % 02/19/24 10:32 Neut # (Auto) 5.70 K/uL (1.40-6.50) 02/19/24 10:32 Lymph # (Auto) 2.49 K/uL (1.20-3.40) 02/19/24 10:32 Cowley # (Auto) 0.73 K/uL (0.11-0.59) H 02/19/24 10:32 Eos # (Auto) 0.06 K/uL (0.00-0.50) 02/19/24 10:32 Baso # (Auto) 0.02 K/uL (0.00-0.20) 02/19/24 10:32 Immature Gran # (Auto) 0.04 K/uL (0.01-0.20) 02/19/24 10:32 Sodium 136 mmol/L (136-145) 02/19/24 10:32 Potassium 3.9 mmol/L (3.5-5.1) 02/19/24 10:32 Chloride 104 mmol/L (98-107) 02/19/24 10:32 Carbon Dioxide 25 mmol/L (21-32) 02/19/24 10:32 Anion Gap 7 (3-11) 02/19/24 10:32 BUN 18 mg/dl (6-23) 02/19/24 10:32 Creatinine 1.38 mg/dl (0.6-1.4) 02/19/24 10:32 Est Cr Clr Drug Dosing 84.8 ml/min 02/19/24 10:32 Est GFR ( Amer) 75.7 ml/min 02/19/24 10:32 Est GFR (Non-Af Amer) 65.3 ml/min 02/19/24 10:32 BUN/Creatinine Ratio 13.0 (10-20) 02/19/24 10:32 Glucose 94 mg/dl (70-99(Fasting)) 02/19/24 10:32 Calcium 9.5 mg/dl (8.6-10.3) 02/19/24 10:32 Adenovirus (PCR) Not Detected (NotDetected) 02/19/24 10:32 B. pertussis DNA (PCR) Not Detected (NotDetected) 02/19/24 10:32 B.parapertussis DNA PCR Not Detected (NotDetected) 02/19/24 10:32 C. pneumoniae DNA (PCR) Not Detected (NotDetected) 02/19/24 10:32 Coronavirus OC43 (PCR) Not Detected (NotDetected) 02/19/24 10:32 Coronavirus HKU1 (PCR) Not Detected (NotDetected) 02/19/24 10:32 Coronavirus 229E (PCR) Not Detected (NotDetected) 02/19/24 10:32 SARS-CoV-2 (PCR) Not Detected (NotDetected) 02/19/24 10:32 Coronavirus NL63 (PCR) Not Detected (NotDetected) 02/19/24 10:32 Human Metapneumovir PCR Not Detected (NotDetected) 02/19/24 10:32 Influenza Type A (PCR) Not Detected (NotDetected) 02/19/24 10:32 Influenza Type B (PCR) Not Detected (NotDetected) 02/19/24 10:32 M. pneumoniae (PCR) Not Detected (NotDetected) 02/19/24 10:32 Parainfluenza 1 (PCR) Not Detected (NotDetected) 02/19/24 10:32 Parainfluenza 2 (PCR) Not Detected (NotDetected) 02/19/24 10:32 Parainfluenza 3 (PCR) Not Detected (NotDetected) 02/19/24 10:32 Parainfluenza 4 (PCR) Not Detected (NotDetected) 02/19/24 10:32 RSV (PCR) Not Detected (NotDetected) 02/19/24 10:32 Entero/Rhino (PCR) Not Detected (NotDetected) 02/19/24 10:32 Impressions Abdomen/Pelvis CT 02/19/24 10:42 CT SCAN OF THE ABDOMEN AND PELVIS WITH IV CONTRAST CLINICAL HISTORY: Perirectal fistula. Abscess. COMPARISON STUDY: No priors. TECHNIQUE: Following the IV administration of negative cc of Optiray 320, CT scan of the abdomen and pelvis is performed from the lung bases to the proximal femora. Images are reviewed in the axial, sagittal, and coronal planes. IV contrast was administered without complication. A dose lowering technique was utilized adhering to the principles of ALARA. CT DOSE: 1576.21 mGy.cm FINDINGS: Lung bases: The heart is normal in size and without pericardial effusion. The lung bases are clear. Liver: The contrast-enhanced liver is normal in size, contour, and attenuation. There is no intrahepatic biliary ductal dilatation. The hepatic veins and portal veins are patent. Gallbladder: Unremarkable. Spleen: The spleen is mildly enlarged measuring 14.5 cm in length. Pancreas: Unremarkable. Adrenal glands: Unremarkable. Kidneys: The contrast enhanced kidneys are normal in size and without hydronephrosis. The kidneys enhance symmetrically. Abdominal vasculature: The abdominal aorta is normal in course and caliber. Bowel: There is no bowel obstruction. The appendix is well-visualized and normal. The rectal wall appears mildly thickened with surrounding inflammation. There is a thick walled and peripherally enhancing fluid collection/tract which extends from the anterior left rectum at the 1:00 to 3:00 position into the left perineal soft tissues. This originates on image #305, crosses the left levator musculature, and extends to the dermal surface along the inferior left gluteal crease on image #373. More organized component of this fluid collection is seen on image number dimension 18 and measures 2.5 x 2.1 x 1.0 cm. The tract measures approximately 12 cm in craniocaudal length. Mildly enlarged perirectal lymph nodes measure up to 9 mm. There is mild cellulitis along the left the gluteal crease. Peritoneum: There is no intraperitoneal free air or abdominal ascites. Lymphadenopathy: None. Pelvic viscera: The bladder, prostate, and seminal vesicles are normal as visualized. Skeletal structures: No lytic or blastic lesions are seen. IMPRESSION: 1. There is a left-sided perianal abscess/fistula as detailed above which extends from the anterior aspect of the rectum to the inferior gluteal crease. 2. There is rectal wall thickening with mild perirectal infiltration and mildly enlarged perirectal lymph nodes. 3. The fistulous tract extends through the levator musculature. 4. Mild splenomegaly. 5. Additional findings as above. ACT 112: Negative or not required by law. Electronically signed by: Brandon Castelan M.D. 02/19/2024 12:17 PM
[2024-02-19] MEDS ORDERED: LORazepam 0.5 MG TAB PO PRN (20:19)
[2024-02-19] MEDS ORDERED: oxyCODONE HCL IR 5 MG TAB (IMMEDIATE RELEASE) PO PRN (20:19)
[2024-02-19] MEDS ORDERED: MELATONIN 3 MG TAB PO PRN (20:19)
[2024-02-19] MEDS ORDERED: PROMETHAZINE HCL 6.25 MG in SODIUM CHLORIDE 0.9% 50 ML IV PRN (20:19)
[2024-02-19] MEDS ORDERED: KETOROLAC TROMETHAMINE 15 MG/ML VIAL IV PRN (20:19)
[2024-02-19] MEDS: PIPERACILLIN/TAZOBACTAM 4.5 GM/100 ML BAG IV STA (21:05)
[2024-02-19] MEDS: Patient's ALLERGY Info needs ENTERED SCH (22:22)
[2024-02-19] MEDS: metroNIDAZOLE 500 MG/100 ML BAG IV SCH (22:51)
[2024-02-20] MEDS: PIPERACILLIN/TAZOBACTAM 4.5 GM in DEXTROSE 5% MINI-B 100 ML IV SCH (01:01)
[2024-02-20] MEDS: D5W AND NSS 1,000 ML IV SCH (07:30)
[2024-02-20 08:19] LABS: Basophils # (auto) 0.02 K/uL (0.00-0.20); Basophils % (auto) 0.4 %; Eosinophils # (auto) 0.05 K/uL (0.00-0.50); Eosinophils % (auto) 0.9 %; Hematocrit (blood only) 39.5 % (42.0-52.0); Hemoglobin 13.5 g/dl (14.0-18.0); Immature Granulocytes # (auto) 0.06 K/uL (0.01-0.20); Immature Granulocytes % (auto) 1.1 %; Lymphocytes # (auto) 1.45 K/uL (1.20-3.40); Lymphocytes % (auto) 26.2 %; Mean Corpuscular Hemoglobin 31.7 pg (25.0-34.0); Mean Corpuscular Hgb Conc 34.2 g/dL (32.0-36.0); Mean Corpuscular Volume 92.7 fL (80.0-100.0); Mean Platelet Volume 9.6 fL (9.4-12.4); Monocytes % (auto) 7.2 %; Neutrophils # (auto) 3.56 K/uL (1.40-6.50); Neutrophils % (auto) 64.2 %; Platelet Count 236 K/uL (130-400); RDW Coefficient of Variation 12.9 % (11.5-14.5); RDW Standard Deviation 43.7 fL (36.4-46.3); Red Blood Count 4.26 M/uL (4.70-6.10); White Blood Count 5.54 K/ul (4.8-10.8)
[2024-02-20 08:36] LABS: BUN Creatinine Ratio 10.9 (10-20); Calcium 8.8 mg/dl (8.6-10.3); Creatinine Clr Calc Pharmacy 90.9 ml/min; Est GFR (African American) 82.1 ml/min; Est GFR (Non-African American) 70.9 ml/min
[2024-02-20] MEDS: ENOXAPARIN INJ 40 MG/0.4 ML SYR SQ SCH (08:54)
[2024-02-20] MEDS: DESCOVY PO SCH (09:57)
[2024-02-20] MEDS: BALSALAZIDE DISODIUM 750 MG CAP PO SCH (09:59)
[2024-02-20] MEDS: PANTOprazole 40 MG TAB PO SCH (10:19)
[2024-02-20] MEDS: FERROUS SULFATE 325 MG TAB PO SCH (10:20)
[2024-02-20] MEDS: ACETAMINOPHEN 325 MG TAB PO PRN (13:40)
[2024-02-20 15:13] VITALS: BP 119/68; RESP 16; TEMP 97.7; O2SAT 96
--- NOTE | 2024-02-20 17:18 | Discharge Summary ---
Date of Service February 20, 2024 Admission HPI Per Admitting Provider History obtained from patient and records. 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 Increase prudent drainage and perirectal pain noted the last couple of days. Fever of 100 T at home. Scant blood tinged drainage. Patient directed to ER by GI specialist. CT abdomen pelvis showed 1. There is a left-sided perianal abscess/fistula as detailed above which extends from the anterior aspect of the rectum to the inferior gluteal crease. 2. There is rectal wall thickening with mild perirectal infiltration and mildly enlarged perirectal lymph nodes. 3. The fistulous tract extends through the levator musculature. 4. Mild splenomegaly. Ceftriaxone and Flagyl administered at the ER. Patient accepted for transfer by [facility] colorectal surgery pending bed availability. Medical History as above 2022 colonoscopy showed friable granular rectal mucosa, transverse colon polyps Descovy intake for HIV preexposure prophylaxis Surgical History : Humeral fracture surgery Family History : DM, hypertension Personal/Social history : Non-smoker, occasional Et[employer] intake, procurement accountant Admission Exam Per Admitting Provider GENERAL: Comfortable, pleasant, no respiratory distress SKIN: Normal color, warm HEENT: Delmar palpebral conjunctivae, no ptosis, dry buccal mucosa NECK : Supple, no tenderness CHEST : CTA, no tenderness HEART : RRR, no obvious murmurs ABDOMEN: Some distention, nontender EXTREMITIES : No LE swelling/tenderness, no other conspicuous deformities noted NEUROLOGIC : Coherent, no facial asymmetry, no other gross focality Principal Diagnosis Perianal abscess Discharge Exam GENERAL: WD/WN M in NAD HEENT: NC/AT NECK : Supple, no tenderness CHEST : CTA, no tenderness HEART : RRR, no obvious murmurs ABDOMEN: Some distention, nontender EXTREMITIES : No LE swelling/tenderness, moves extremities NEUROLOGIC : Coherent, no facial asymmetry, answers appropriately, moves extremities SKIN: Normal color, warm Discharge Data Allergies Allergy/AdvReac Type Severity Reaction Status Date / Time atropine [From Lomotil] AdvReac Blurry Verified 02/19/24 19:58 Vision diphenoxylate [From Lomotil] AdvReac Blurry Verified 02/19/24 19:58 Vision Anti- dirrheal pill AdvReac lost Uncoded 02/19/24 12:11 periperal vision Consultations 02/19/24 19:28 ED Decision to Admit Stat Ordered Studies 02/19/24 10:42 CT abd pelvis IV con only Stat FINDINGS: Lung bases: The heart is normal in size and without pericardial effusion. The lung bases are clear. Liver: The contrast-enhanced liver is normal in size, contour, and attenuation. There is no intrahepatic biliary ductal dilatation. The hepatic veins and portal veins are patent. Gallbladder: Unremarkable. Spleen: The spleen is mildly enlarged measuring 14.5 cm in length. Pancreas: Unremarkable. Adrenal glands: Unremarkable. Kidneys: The contrast enhanced kidneys are normal in size and without hydronephrosis. The kidneys enhance symmetrically. Abdominal vasculature: The abdominal aorta is normal in course and caliber. Bowel: There is no bowel obstruction. The appendix is well-visualized and normal. The rectal wall appears mildly thickened with surrounding inflammation. There is a thick walled and peripherally enhancing fluid collection/tract which extends from the anterior left rectum at the 1:00 to 3:00 position into the left perineal soft tissues. This originates on image #305, crosses the left levator musculature, and extends to the dermal surface along the inferior left gluteal crease on image #373. More organized component of this fluid collection is seen on image number dimension 18 and measures 2.5 x 2.1 x 1.0 cm. The tract measures approximately 12 cm in craniocaudal length. Mildly enlarged perirectal lymph nodes measure up to 9 mm. There is mild cellulitis along the left the gluteal crease. Peritoneum: There is no intraperitoneal free air or abdominal ascites. Lymphadenopathy: None. Pelvic viscera: The bladder, prostate, and seminal vesicles are normal as visualized. Skeletal structures: No lytic or blastic lesions are seen. IMPRESSION: 1. There is a left-sided perianal abscess/fistula as detailed above which extends from the anterior aspect of the rectum to the inferior gluteal crease. 2. There is rectal wall thickening with mild perirectal infiltration and mildly enlarged perirectal lymph nodes. 3. The fistulous tract extends through the levator musculature. 4. Mild splenomegaly. 5. Additional findings as above. 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 (Patient accepted by Dr. Gutierrez of Colorectal Surgery.) N.p.o. after midnight in anticipation of procedure 02/19 Pt reports feeling much better since coming to the hospital. He is on IV zosyn, awaiting transfer to [facility]. Will allow clear liquid diet for now as t ransfer is likely happening later in a day. DVT prophylaxis per Lovenox subcu Full code Total Time Total Time Spent Total Time Spent (In Minutes): 40 Discharge Plan Discharge Items Patient Disposition: Transfer Acute Care Hospital Reason For Visit: PARIANAL ABSCESS Discharge Diagnosis: Perianal abscess Activity: Per Instructions section Non-emergency contact: Surgeon, Specialist and Bariatric Surgeon Call non-emergency contact if: you have any medication questions and your symptoms worsen Follow-up/Referrals: Garo Aponte MD [Primary Care Provider] - Diet: Other - See Diet Comment Diet Comment: NPO after MN Addtl Attending Provider Instructions: Patient with hx of IBD and perianal abscess - currently on IV zosyn which should be continued on transfer. Plan to transfer to [facility] for further evaluation and treatment. Pending Studies at Discharge: Yes Studies:: final blood cultx results Stand-Alone Forms: My [facility] Skilled Items Patient informed of condition?: Yes DNR: No Discharge Level of Care: Other Communicable Disease: No Discharge Prognosis: Improving Lines: Peripheral IV Urinary Catheter: No Medications and DC Order Prescriptions: Continued ferrous sulfate [iron] 325 mg (65 mg iron) Tablet 325 mg PO DAILY balsalazide 750 mg capsule 1,500 mg PO BID finasteride 1 mg Tablet 1 mg PO DAILY omeprazole magnesium [Prilosec OTC] 20 mg Tablet,Delayed Release (Dr/Ec) 20 mg PO DAILY Descovy 200-25 mg tablet 1 tab PO DAILY Rinvoq 45 mg tablet extended release 24 hr 45 mg PO DAILY Discharge Orders: Discharge Order (Routine); Ordered 02/20/24 Ordered By: Leander Cohen Admission Data Admit Date/Time: 02/19/24 20:18 Attending Provider: Leander Cohen Admit Provider: Armin Kennedy Primary Care Provider: Garo Aponte Other Providers: Armin Kennedy Other Interventions: Discharge Summary Assessment (RN) Last Done: 02/20/24 18:15
[2024-02-20 18:19] VITALS: PULSE 56
== END 2024-02-20 19:00 | disposition short-term general hospital (02) | DRG 394 ==
LOC: ED 09:59 → 3N 20:18
DX: K50.913 Crohn's disease, unspecified, with fistula; Z79.899 Other long term (current) drug therapy; K61.0 Anal abscess; K21.9 Gastro-esophageal reflux disease without esophagitis; Z86.010 Personal history of colon polyps; K83.01 Primary sclerosing cholangitis